=== PATIENT | male | born 1945 | race Caucasian/White ===

== ENCOUNTER 2016-02-13 16:27 | Inpatient (IN) | payer OTHER, MEDICARE ==
[~2016-02-13] VITALS: Ht 172.7 cm; Wt 97.1 kg
[~2016-02-13 16:27] MED LIST: ALPH-E-MIXED-4400 IU PO; AMLODIPINE; ASPIRIN81 M4 PO; ATORVASTATIN; ATORVASTATIN CA80 M1 PO; AUGMENTIN 875-1 EACH PO; CADUET 10 MG-101 TAB PO; CALCIUM + D 6001 TAB PO; CENTRUM SILVER1 TAB PO; DICLOFENAC POTA50 M1 PO; DOCUSATE SODIU100 M3 PO; FLOVENT HFA12 G1 INH; HYDRALAZINE HCL25 MG PO; HYDRODIURIL 2525 MG PO; IBUPROFEN600 MG PO; KEFLEX500 M1 PO; KLOR-CON 10MEQ10 MEQ PO; LOSARTAN POTASS25 M1 PO; METOPROLOL TART25 M1 PO; MIRALAX119 GM PO; NASONEX17 GM NASB; NITROFURANTOIN50 M1 PO; PERCOCET 325 MG1 TAB PO; PERCOCET 5-3251 EACH PO; PROBIOTIC GOLD1 EACH PO; PROSCAR5 MG PO; PROVENTIL0.09 MG/A1 INH; TAMSULOSIN HYD0.4 MG PO; VITAMIN C500 M7 PO; ZOFRAN4 M2 PO; [UNRECOGNIZED DRUG - OTHER]
--- NOTE | 2016-02-13 16:40 | ED DYSPNEA/ASTHMA COMPLAINT ---
History of Present Illness General Chief Complaint: Dyspnea (COPD, CHF, Other) Stated Complaint: SENT IN BY MD MOE FOR DIFF BREATHING Source: patient, family, old records, PCP Exam Limitations: no limitations Vital Signs & Intake/Output Vital Signs & Intake/Output Vital Signs Date Time Temp Pulse Resp B/P Pulse O2 O2 Flow FiO2 Ox Delivery Rate 02/12 2138 97.9 103 20 154/74 90 02/12 2133 95 Nasal 4.0L Cannula 02/12 1918 98.7 111 20 152/86 95 Nasal 4.0L Cannula 02/12 1849 97.0 112 16 178/94 95 Nasal 7.0L Cannula 02/12 1740 94 Nasal 7.0L Cannula 02/12 1738 96.9 110 21 119/74 94 Nasal 7.0L Cannula 02/12 1700 98 Nasal 4.0L Cannula ED Intake and Output 02/13 0000 02/12 1200 Intake Total 100 Output Total Balance 100 Intake, IV 100 Patient 215 lb Weight Allergies Coded Allergies: NO KNOWN ALLERGIES (01/02/16) Reconcile Medications Ascorbic Acid (Vitamin C) 500 MG CAPSULE.ER 1 CAP PO BID SUPPLEMENT (Reported ) Aspirin (Ecotrin*) 81 MG TABLET.DR 1 TAB PO DAILY HEART/BLOOD (Reported) Atorvastatin Calcium 80 MG TABLET 1 TAB PO QPM CHOLESTEROL (Reported) Fluticasone Propionate (Flovent Hfa) 220 MCG AER.W.ADAP RESPIRATORY (Reported) Lactobacillus Acidophilus (Probiotic) 10 BILLION CELL CAPSULE 1 CAP PO DAILY PROBIOTIC (Reported) Losartan Potassium 25 MG TABLET 1 TAB PO DAILY HEART (Reported) Metoprolol Tartrate 25 MG TABLET 1 TAB PO BID HEART (Reported) Mometasone Furoate (Nasonex) 50 MCG SPRAY.PUMP 1 SPRAY NASB PRN ALLERGIES ( Reported) Multivitamin and Ctspezuv651 (Centrum Silver) 1 TAB TAB 1 TAB PO DAILY SUPPLEMENT (Reported) Nitroglycerin 0.4 MG TAB.SUBL 1 TAB SL AD PRN CHEST PAIN (Reported) 1st sign of attack; may repeat every 5 minutes until relief; if pain persists after 3 tablets in 15 minutes, prompt medical att Prednisone 20 MG TABLET STEROID TAPER (Reported) Pregabalin (Lyrica) 50 MG CAPSULE 1 CAP PO BID UNKNOWN (Reported) Tamsulosin HCl 0.4 MG CAP.ER.24H 1 CAP PO DAILY (Reported) Triage Nurses Notes Reviewed? yes Onset: Gradual Duration: day(s): (3-4) Timing: recent history Severity: severe Modifying Factors: Worsens With: other (EXERTION). Associated Symptoms: DYSPNEA, CHEST PAIN HPI: This is a 70-year-old male with history of emphysema, history of coronary disease status post DE and stents 1 in [address] Moe's office for chief complaint of respiratory distress and hypoxia. He was seen here on January 20 for chest pain and shortness of breath and had a CAT scan to rule out PE. He was diagnosed with acute chest pain syndrome and asthma exacerbation. He saw Dr. Nascimento his machine fancy stitcher 2 weeks ago in the office and states that his evaluation but signs were within normal limits. He has had episodes of chest pain. He states that as soon as the prednisone titrated that his symptoms came back. Denies any fever or chills. Complains of a cough with productive clear sticky sputum. Today was his first day doctor seeing Dr. Moe and Dr. Clive sam down to the ER for evaluation. Past History Travel History Traveled to [place] past 21 day No Medical History Any Pertinent Medical History? see below for history Neurological: NONE EENT: hearing loss Cardiovascular: hyperlipidemia, myocardial infarction, hypertension Respiratory: asthma Gastrointestinal: NONE Hepatic: NONE Renal: dysfunctional bladder, self catheterizes. URINARY RETENTION REQUIRING SELF-CATHETERIZATION Musculoskeletal: chronic back pain, osteoarthritis, LLE FX, Psychiatric: NONE Endocrine: NONE Blood Disorders: septic shock x 2 Cancer(s): NONE MEDICAL AIDE/Reproductive: NONE Other Medical Hx: UTI, sepsis History of MRSA: No History of VRE: No History of CDIFF: No Surgical History Surgical History: CARDIAC STENT BACK SURGER 2006 Psychosocial History Who do you live with Family Services at Home None What is your primary language [place] Family History Hx Contributory? No Review of Systems Review of Systems Constitutional: Denies: chills, fever. EENTM: Reports: no symptoms. Respiratory: Reports: short of breath. Cardiovascular: Reports: chest pain. Denies: palpitations, peripheral edema. GI: Denies: abdominal pain. Genitourinary: Reports: no symptoms. Musculoskeletal: Reports: no symptoms. Skin: Reports: no symptoms. Neurological/Psychological: Reports: anxiety. Hematologic/Endocrine: Denies: bruising, bleeding, polyuria, polydipsia. Immunologic/Allergic: Reports: no symptoms. All Other Systems: Reviewed and Negative Physical Exam Physical Exam General Appearance: well developed/nourished, alert, awake, anxious, moderate distress Head: atraumatic, normal appearance Eyes: Bilateral: normal appearance, PERRL, EOMI. Ears, Nose, Throat: normal pharynx, normal ENT inspection, hearing grossly normal Neck: normal inspection, supple, full range of motion Respiratory: decreased breath sounds, accessory muscle use Cardiovascular: tachycardia Peripheral Pulses: 2+ radial (R), 2+ radial (L) (RADIAL THRILL) Gastrointestinal: soft, non-tender, OBESE Extremities: pedal edema (TRACE BILATERAL) Neurologic/Psych: no motor/sensory deficits, awake, alert, oriented x 3, normal gait, normal mood/affect Skin: cyanosis Core Measures ACS in differential dx? No Severe Sepsis Present: No Septic Shock Present: No Progress Differential Diagnosis: asthma, CHF, COPD, musculoskeletal pain, pericarditis, pulmonary embolism, pneumonia, pneumothorax, unstable angina Plan of Care: Orders Procedure Date/time Status Heart Healthy Diet 02/13 B Active CBC WITHOUT DIFFERENTIAL 02/13 0600 Active BASIC ELECTROLYTES PLUS BUN&CR 02/13 0600 Active TROPONIN LEVEL 02/13 0530 Active EKG 02/13 0530 Active Heart Healthy Diet 02/12 D Complete TROPONIN LEVEL 02/12 2330 Active EKG 02/12 2330 Active LOWER RESPIRATORY CULTURE 02/12 2200 Active Pathway - chart 02/12 2134 Active House Staff 02/12 2134 Active Patient Data 02/12 2134 Active Vital Signs 02/12 2118 Active Teach/Educate 02/12 2118 Active Nutritional Intake, Monitor 02/12 2118 Active Isolation 02/12 2118 Active Intake & Output 02/12 2118 Active Patient Care Conference 02/12 2118 Active Activity/Ambulation 02/12 2118 Active Patient Data 02/12 1907 Active Admit to inpatient 02/12 1845 Active Vital Signs 02/12 1845 Active Code Status 02/12 1845 Active Intake & Output 02/12 1738 Active Add-on Test (ER Only) 02/12 1737 Active D-DIMER 02/12 1724 Complete RT ED ORDERS 02/12 1647 Active ARTERIAL BLOOD GAS (GEN) 02/12 1644 Complete Telemetry/Emergency Dept Tech 02/12 1644 Active TROPONIN LEVEL 02/12 1644 Complete PARTIAL THROMBOPLASTIN TIME 02/12 1644 Complete PROTHROMBIN TIME 02/12 1644 Complete COMPREHENSIVE METABOLIC PANEL 02/12 1644 Complete CBC WITHOUT DIFFERENTIAL 02/12 1644 Complete B-TYPE NATRIURETIC PEP (BNP) 02/12 1644 Complete EKG 02/12 1629 Active TRC EVALUATION (GEN) 02/12 UNK Active OXYGEN SETUP (GEN) 02/12 UNK Complete VTE Mechanical Prophylaxis 02/12 UNK Active Telemetry/Emergency Dept Tech 02/12 UNK Active Nursing Misc 02/12 UNK Active CTA CHEST 02/12 UNK Active ECHOCARDIOGRAM 02/12 UNK Active Current Medications Sig/Darvin Start time Last Medication Dose Stop Time Status Admin Atorvastatin Calcium 80 MG QPM 02/13 2200 AC (Lipitor) Aspirin Buffered 81 MG DAILY 02/13 1000 AC (Ecotrin) Enoxaparin Sodium 40 MG DAILY 02/13 1000 AC (Lovenox) Lactobacillus 1 CAP DAILY 02/13 1000 AC Acidophilus (Probiotic) Losartan Potassium 25 MG DAILY 02/13 1000 AC (Cozaar) Metoprolol Tartrate 25 MG BID 02/13 1000 AC (Lopressor) Tamsulosin HCl 0.4 MG DAILY 02/13 1000 AC (Flomax) Melatonin 5 MG AT BEDTIME 02/12 2359 AC (Melatonin) Azithromycin 500 MG DAILY 02/125 AC (Zithromax) Sodium Chloride 250 ML (Normal Saline 0.9%) Fluticasone 2 PUF BID 02/12 2245 AC Propionate (Flovent) Methylprednisolone 40 MG Q8 02/12 2245 AC (Solumedrol) Nitroglycerin 0.4 MG Q 5 MINUTES X 3 DO.. 02/12 2215 AC (Nitrostat) Pregabalin 50 MG BID 02/12 2207 AC (Lyrica) Acetaminophen 650 MG Q6P PRN 02/12 2145 AC (Tylenol) Oxycodone HCl 5 MG Q6 PRN 02/12 2145 AC (Roxicodone) Laboratory Tests 02/12/ 1724: Anion Gap 11, Estimated GFR > 60, BUN/Creatinine Ratio 22.7, Glucose 153 H, Calcium 9.3, Total Bilirubin 0.7, AST 51, ALT 77 H, Alkaline Phosphatase 195 H , Troponin I 0.09, Pwv-I-Yrkhswuxfjs Pept 2420 H, Total Protein 6.9, Albumin 3.4 L, Globulin 3.5, Albumin/Globulin Ratio 1.0 L, PT 14.9 H, INR 1.42 H, APTT 34, D-Dimer 713 H, CBC w Diff NO MAN DIFF REQ, RBC 3.99 L, MCV 80.5, MCH 26.6 L, RDW 17.5 H, MPV 7.6, Gran % 97.5 H, Lymphocytes % 2.1 L, Monocytes % 0.3 L, Eosinophils % 0.1, Basophils % 0 L, Absolute Granulocytes 13.9 H, Absolute Lymphocytes 0.3 L, Absolute Monocytes 0 L, Absolute Eosinophils 0, Absolute Basophils 0, PUBS MCHC 33.1 02/13/16 1650: pH 7.47 H, pCO2 32 L, pO2 71 L, HCO3 23, ABG O2 Sat (Measured) 93.0 L, Carboxyhemoglobin 0.3 L, O2 Concentration % 4L, O2 Delivery Method NC, Phlebotomy Draw Site RIGHT RADIAL Microbiology 02/12 2200 LOWER RESP: Respiratory Culture - ORD 02/12 2200 LOWER RESP: Gram Stain - ORD EKG, TELE MONITOR, NASAL O2 ORDERED. SOLUMEDROL, DUONEB ORDERED. PATIENT FEELING BETTER AFTER DUONEB. CXR RESULTS PENDING. (FABIOLA MILLIGAN,LAYA) Diagnostic Imaging: Viewed by Me: Radiology Read. Discussed w/RAD: Radiology Read. Radiology Impression: EXAM TYPE: RAD - XRY-PORTABLE CHEST XRAY EXAMINATION: XR PORTABLE CHEST CLINICAL INFORMATION: Dyspnea, hypoxia and chest pain. COMPARISON : Portable chest x-ray 01/21/2016. TECHNIQUE: Portable view of the chest was obtained. FINDINGS: The lungs are hypoinflated with minimal dependent bibasilar atelectasis. No focal airspace consolidation. No pleural effusions or pneumothoraces are identified. Cardiomediastinal contours are within normal limits. Soft tissues are unremarkable. No acute osseous abnormality is identified. IMPRESSION: Pulmonary hypoinflation. Minimal dependent bibasilar atelectasis. Otherwise, no acute pulmonary process. Initial ED EKG: sinus tachycardia at 108 bpm Rhythm Strip: sinus tachycardia Departure Departure Time of Disposition: 1844 Disposition: STILL A PATIENT Condition: Stable Clinical Impression Primary Impression: COPD (chronic obstructive pulmonary disease) Secondary Impressions: Chest pain, Hypoxia Referrals: ANALISA MILLIGAN,MARCIANO Valdivia (PCP/Family) Referred to [facility] as new patient No Departure Forms: Customer Survey General Discharge Information Admission Note Spoke With: RICH MILLIGAN,EUGENIO Documentation of Exam: Documentation of any treatments & extenuating circumstances including Concerns Regarding Discharge (functional status, medication knowledge or non-compliance, living conditions, etc.) that warrant an admission rather than observation: [ TELE MONIOTOR, TRC/NEBS, IV STEROIDS, PULMONARY CONSULTATION DR MOE, CARDIOLOGY CONSULTATION, MONITOR I/O] Critical Care Note Critical Care Note Critical Care Time: non-applicable
[2016-02-13] MEDS ORDERED: PREDNISONE20 M1 PO (17:23)
[2016-02-13] MEDS ORDERED: ASPIRIN EC81 M1 PO (17:31)
[2016-02-13 17:33] LABS: ABSOLUTE BASOPHIL COUNT 0 /CUMM (0.0-0.2); ABSOLUTE EOSINOPHIL COUNT 0 /CUMM (0.0-0.7); ABSOLUTE GRANULOCYTE CT 13.9 /CUMM (1.4-6.5); ABSOLUTE LYMPH COUNT 0.3 /CUMM (1.2-3.4); ABSOLUTE MONOCYTE COUNT 0 /CUMM (0.10-0.60); BASOPHIL % 0 % (0.0-2.0); EOSINOPHIL % 0.1 % (0-5); HEMATOCRIT 32.1 % (42-52); MEAN CORPUSCULAR HGB 26.6 PG (27.0-31.0); MEAN CORPUSCULAR HGB CONC 33.1 G/DL (33.0-37.0); MEAN CORPUSCULAR VOLUME 80.5 FL (80.0-94.0); MEAN PLATELET VOLUME 7.6 FL (7.4-10.4); PLATELET COUNT 318 /CUMM (130-400); RBC DISTRIBUTION WIDTH 17.5 % (11.5-14.5); RED BLOOD CELL CT 3.99 /CUMM (4.70-6.10); WHITE BLOOD CELL COUNT 14.2 /CUMM (4.8-10.8)
[2016-02-13] MEDS ORDERED: PROBIOTIC1 EACH PO (17:34)
[2016-02-13] MEDS ORDERED: LYRICA50 M1 PO (17:35)
[2016-02-13] MEDS ORDERED: NITROGLYCERIN0.4 M1 SL (17:35)
--- NOTE | 2016-02-13 17:36 | RADIOLOGY REPORT ---
EXAMINATION: XR PORTABLE CHEST CLINICAL INFORMATION: Dyspnea, hypoxia and chest pain. COMPARISON: Portable chest x-ray 01/21/2016. TECHNIQUE: Portable view of the chest was obtained. FINDINGS: The lungs are hypoinflated with minimal dependent bibasilar atelectasis. No focal airspace consolidation. No pleural effusions or pneumothoraces are identified. Cardiomediastinal contours are within normal limits. Soft tissues are unremarkable. No acute osseous abnormality is identified. IMPRESSION: Pulmonary hypoinflation. Minimal dependent bibasilar atelectasis. Otherwise, no acute pulmonary process.
--- NOTE | 2016-02-13 17:38 | NUR ---
PT TO ED FOR WORSENING SOB, STATES HE HAS BEEN HAVING WORSENING SOB OVER PAST MONTH, SAW LORI IN HIS OFFICE TODAY WHO REFFERRED PT TO ED. PTS LUNGS CLEAR THROUGHOUT, APPEARS ASHEN ON RA, COLOR IMPROVES ON NC 02 AT 7 L FOR AN 02SAT OF 94% PT DENIES ANY FEVER, INTERMITTENT PRODUCTIVE COUGH WITH "FROTHY STUFF", BILATERAL FEMUR PAIN WHICH HAS BEEN CHRONIC SINCE SOB.
[2016-02-13] MEDS ORDERED: TAMSULOSIN HCL0.4 M1 PO (17:39)
[2016-02-13] MEDS ORDERED: FLOVENT HFA12 GM INH (17:40)
--- NOTE | 2016-02-13 17:44 | NUR ---
IV ESTABLISHED, STEROIDS INFUSING, RT AT [facility] FOR ABG AND NEB TX
[2016-02-13 17:53] LABS: GRANULOCYTE % 97.5 % (42.2-75.2)
[2016-02-13 17:54] LABS: PT 14.9 SEC (9.4-12.5); PTT 34 SEC (25-37)
--- NOTE | 2016-02-13 18:44 | NUR ---
PT ASSISTED TO CHAIR, MEDICATED WITH PERCOCET PER REQUEST FOR CHRONIC BACK PAIN. PT STRAIGHT CATH'D SELF FOR APPROX 800 CC CLEAR YELLOW URINE WITH NO REPORTED DIFFICULTY.
--- NOTE | 2016-02-13 18:51 | NUR ---
PT REQUESTING TO STAY IN OWN CLOTHES
--- NOTE | 2016-02-13 19:43 | NUR ---
PT HAS BED #180-1
--- NOTE | 2016-02-13 19:48 | History & Physical ---
JANESSA SHAFFER MD 02/13/161947: General Information and HPI Source of Information: patient, old records Exam Limitations: no limitations History of Present Illness: Patient is a 70-year-old male Ex-smoker with significant past medical history of hypertension , hyperlipidemia , chronic back pain (operated 10 years ago, on Percocet), bilateral neuropathic pain on Lyrica, dysfunctional bladder (doing self catheterization), sepsis (twice), coronary artery disease status post stent (2014),renal stones status post multiple lithotripsy, right sided hydronephrosis status post stent removal , recurrent UTI COPD/emphysema , not on home oxygen presented with chief complaints of separately progressive shortness of breath since 3 or 4 days after he stopped the prednisone given for pleurisy. Patient claims that he was having chest pain since last couple of weeks and came to the emergency department, and he was admitted in the [facility]. He was evaluated for embolization/coronary artery disease. But later on the workup was negative. So he was diagnosed as a pleurisy. He was sent home with pain medication but later started him on prednisone 20 milligrams twice a day for 10 days. He responded well on it. His pain was down to 0. As he stopped the prednisone, he started having shortness of breath which got worse 3 days ago. Today it was intolerable so he called to Dr Castellanos office and he advised to visit Dr. Moe for further pulmonary evaluation. He went to Dr. Moe's office and he advised to come to the [facility] ED for admission and further evaluation. At the time of admission. He was saturating 94% on 7 liters nasal cannula. Later after breathing treatment, He came down to 4 liters is now saturating 95%. Chronic back pain-he is operated 10 years ago and was on Percocet. But recently a week ago,he stopped it. Patient was smoking cigars for 20 years and which he quit in 2014, after he had CO. According to the patient, he is working in [email or web address] since last 34 years. Allergies/Medications Allergies: Coded Allergies: NO KNOWN ALLERGIES (01/02/16) Home Med list Ascorbic Acid (Vitamin C) 500 MG CAPSULE.ER 1 CAP PO BID SUPPLEMENT (Reported ) Aspirin (Ecotrin*) 81 MG TABLET.DR 1 TAB PO DAILY HEART/BLOOD (Reported) Atorvastatin Calcium 80 MG TABLET 1 TAB PO QPM CHOLESTEROL (Reported) Fluticasone Propionate (Flovent Hfa) 220 MCG AER.W.ADAP RESPIRATORY (Reported) Lactobacillus Acidophilus (Probiotic) 10 BILLION CELL CAPSULE 1 CAP PO DAILY PROBIOTIC (Reported) Losartan Potassium 25 MG TABLET 1 TAB PO DAILY HEART (Reported) Metoprolol Tartrate 25 MG TABLET 1 TAB PO BID HEART (Reported) Mometasone Furoate (Nasonex) 50 MCG SPRAY.PUMP 1 SPRAY NASB PRN ALLERGIES ( Reported) Multivitamin and [id number] (Centrum Silver) 1 TAB TAB 1 TAB PO DAILY SUPPLEMENT (Reported) Nitroglycerin 0.4 MG TAB.SUBL 1 TAB SL AD PRN CHEST PAIN (Reported) 1st sign of attack; may repeat every 5 minutes until relief; if pain persists after 3 tablets in 15 minutes, prompt medical att Prednisone 20 MG TABLET STEROID TAPER (Reported) Pregabalin (Lyrica) 50 MG CAPSULE 1 CAP PO BID UNKNOWN (Reported) Tamsulosin HCl 0.4 MG CAP.ER.24H 1 CAP PO DAILY (Reported) Past History Travel History Traveled to [place] past 21 day No Medical History Neurological: NONE EENT: hearing loss Cardiovascular: hyperlipidemia, myocardial infarction, hypertension Respiratory: asthma Gastrointestinal: NONE Hepatic: NONE Renal: dysfunctional bladder, self catheterizes. 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 EENTM: Denies: no symptoms. Cardiovascular: Reports: chest pain. Denies: edema, orthopena, palpitations, peripheral edema. Respiratory: Reports: cough, short of breath. Denies: hemoptysis, orthopnea, sputum production, wheezing. GI: Reports: distention. Denies: abdominal pain, bloating, constipation, diarrhea, nausea. Genitourinary: Reports: dysuria. Denies: frequency, hematuria, nocturia. Neurological/Psychological: Reports: paresthesia. Denies: anxiety. Exam & Diagnostic Data Last 24 Hrs of Vital Signs/I&O Vital Signs Date Time Temp Pulse Resp B/P Pulse O2 O2 Flow FiO2 Ox Delivery Rate 02/12 2138 97.9 103 90 154/74 20 02/12 1918 98.7 111 20 152/86 95 Nasal 4.0L Cannula 02/12 1849 97.0 112 16 178/94 95 Nasal 7.0L Cannula 02/12 1740 94 Nasal 7.0L Cannula 02/12 1738 96.9 110 21 119/74 94 Nasal 7.0L Cannula 02/12 1700 98 Nasal 4.0L Cannula Physical Exam General Appearance Alert, Oriented X3, Cooperative, No Acute Distress Skin No Rashes, No Breakdown HEENT Atraumatic, PERRLA, EOMI Neck Supple, No JVD, No thryomegaly Cardiovascular Regular Rate, Normal S1, Normal S2 Lungs Clear to Auscultation, Normal Air Movement Abdomen Soft, No Tenderness, distended Neurological Normal Speech Extremities No Clubbing, No Cyanosis, No Edema, Normal Pulses Assessment/Plan Assessment: Assessment and plan - Vital signs at the time of admission-temperature 96.9, pulse 110, respiratory rate 21, blood pressure 119/74, SPO2 94% on 7 liters of ABG-pH 7.4, PCO2 32, PO2 71, bicarbonate 23, SPO2 93% Chest x-ray -Pulmonary hypoinflation. Minimal dependent bibasilar atelectasis. Otherwise, no acute pulmonary process. Problem list - COPD acute exacerbation under evaluation, not on home oxygen Coronary artery disease, status post stenting in 2014 Hypertension Hyperlipidemia chronic back pain (operated 10 years ago, on Percocet), bilateral neuropathic pain on Lyrica, dysfunctional bladder (doing self catheterization), Anemia Obesity Plan- COPD acute exacerbation under evaluation, not on home oxygen * We will take the pulmonology consult and followed their recommendation * TRC/nebulization * We'll continue oxygen with goal of SPO2 of more than 92% * We will start patient on injection Solu-Medrol 40 mgs IV 8hrly * We will give Azithromycin for antiinflammatory effects * We will do CTA to r/o PE Coronary artery disease, status post stenting in 2014 * We will check serial EKG/Troponin to rule out ACS * We will place cardiology consult and follow their recms * We will f/u echo * We will continue Aspirin. Hypertension * We will continue home medication Losartan, Metoprolol Hyperlipidemia * We will continue home medication tab atorvastatin 80mg HS chronic back pain (operated 10 years ago, on Percocet) * We will continue pain medication as needed bilateral neuropathic pain on Lyrica, * We will continue home medication Lyrica 50mg BID dysfunctional bladder (doing self catheterization), * We will continue home medication Tamsulosin * Advised for straight cath protocol * As patient was c/o Dysuria we will check UA and urine culture Anemia * Hemoglobin is 10.6 * It seems it is a NcNch, we will follow regulary Obesity * We will advise for weight loss diet and exercise after he get recovered. Diet - Heart Healthy diet DVT prophylaxis -Heparin /ALPS Code Status - FC As Ranked By This Provider Problem List: 1. COPD (chronic obstructive pulmonary disease) 2. Emphysema of lung 3. Chronic back pain Core Measures/Miscellaneous Acute Coronary Syndrome ACS Diagnosis: No Cerebrovascular Accident CVA/TIA Diagnosis: No Congestive Heart Failure CHF Diagnosis: No Venous Thromboembolism VTE Risk Factors: Age > 40, Obesity VTE Prophylaxis Ordered Inpt: Mechanical (ALPS/TEDS) No Mech VTE prophylaxis d/t: No contraindications No VTE Pharm Prophylaxis d/t: No contraindications VTE Diagnosis: No VTE Type: NONE VTE Confirmed by (Test): NONE Severe Sepsis Severe Sepsis Present: No Septic Shock Septic Shock Present: No Miscellaneous Documentation Attending Case Discussed With: MELIZA VILLANUEVA MDKendall Primary Care Physician: MARCIANO HAUSER MD Patient sees these Specialists oj Level of Patient Care: Telemetry MAHIN GRAMAJO 02/13/166: Resident Review Statement Resident Statement: examined this patient, discussed with international specialist, agreed with international specialist Other Findings: Patient is a 70-year-old gentleman with past medical history significant for COPD(smoked cigars for almost 20 years)/questionable interstitial lung disease, hypertension, hyperlipidemia, CO status post cardiac stent placed in 2014, chronic back pain, ankle fracture, septic shock, dysfunctional (neurogenic) bladder status post self-catheterization, urinary retention, recurrent UTI, renal stones status post multiple lithotripsywas sent in to the ED from Dr. Moe office for the evaluation of shortness of breath. On inquiry, the patient he was recently admitted in [facility] due to acute pyelonephritis and sepsis was discharged home on 12/22/2015. Patient was in his usual state of health about 3-4 weeks ago when he started having chest discomfort with trouble breathing. He came to the ER on January 20 for the evaluation, CT chest done in the ED ruleD out any underlying PE. Afterward she was seen by his primary care physician Dr. Hauser and was given a prescription on tapered prednisone for total of 10 days for possible COPD exacerbation. Patient's symptoms improved but this weekend he started having shortness of breath associated with chest discomfort again. He called his primary care physician and on his recommendation he was seen at Dr. Moe's office today. In the office patient was found to be in respiratory distress, desaturated and was sent to the ER for further evaluation. Patient has also been complaining of productive cough with clear thick phlegm. Denies any recent fever or infections denies any recent travels/sick contacts. As mentioned above patient smoked cigars for almost 20 years, has been diagnosed with emphysema (COPD). 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 Has never done by me function tests before. Vitals on admission temperature 96.9, pulse 110, respiratory rate 21, blood pressure 119/74, first on 7 L now on 4 L of oxygen,saturating more than 92%. On examination General Appearance: Alert, No Acute Distress Skin: Grossly normal HEENT: PEERLA Neck: Supple, No JVD Cardiovascular: Regular Rate, Normal S1, Normal S2, No Murmurs Lungs: Decreased expirations bilaterally without any wheeze. Abdomen: Normal Bowel Sounds, Soft, No Tenderness Neurological: Normal Speech, Strength at 5/5 X4 Ext, Cranial Nerves 3-12 NL, Reflexes 2+ Extremities: No Clubbing, No Cyanosis, No Edema Vascular: Normal Pulses. Pertinent labs: Leukocytosis 14.2 without any bands, H&H low at 10.6/32.5 with MCV of 80.5. ABG done in the ED showed a pH of 7.47 with PCO2 of 30 2D dimer elevated at 713 elevated proBNP 2420. EKG: Sinus tachycardia heart rate in 100s with multiple PVCs left fascicular block. Chest x-ray Pulmonary hypoinflation. Minimal dependent bibasilar atelectasis. Otherwise, no acute pulmonary process. Assessment/plan: 1. Acute hypoxic respiratory failure(elevated d-dimer with EKG showed sinus tachycardia, rule out pulmonary embolism)/ACS/COPD exacerbation: * Patient will be admitted to telemetry floor: * CTA chest to rule out pulmonary embolism but revealed Small focal subpleural infiltrate at both lung apices new since prior CT study. Mosaic attenuation of lung parenchyma most affecting the upper lobes consistent with small airways disease. * Hold and device for now will send sputum and blood cultures if patient spikes fever consider antibiotics. * We'll do serial troponin EKG to rule out any underlying ACS. * Obtain echocardiogram. * Obtain cardiology consult the morning. * Continue and keep saturations above 92% * Watch for any hemodynamic instability. * We will start the patient on IV Solu-Medrol 40 mg every 8 continue with azithromycin for its anti-inflammatory properties, continue with TR nebs. * Obtained pulmonology consult with Dr. Moe in the morning. 2. History of coronary artery disease (CO 2015 status post cardiac cath and stent placement),hypertension and hyperlipidemia: * Continue home medications including aspirin, atorvastatin ,losartan and metoprolol. 3. History of neurogenic bladder on straight cath protocol * Continue straight cath protocol in the hospital * Continue with tamsulosin. 4. History of chronic back pain with neuropathy * Continue home dose of Lyrica 5.Mild to moderate pain controlled with Tylenol and oxycodone. 6. DVT prophylaxis subcutaneous Lovenox 7. Patient is full code. RICH MILLIGAN, [facility] 02/13/16 0929: Attending MD Review Statement Attending Statement Attending MD Statement: examined this patient, discuss w/resident/PA/DATASTAGE ARCHITECT, agreed w/resident/PA/DATASTAGE ARCHITECT Attending Assessment/Plan: 70 yo M with h/o COPD, HTN, BPH, nephrolithiasis, chronic pain, CAD s/p stent ( 2015 @ [place]), neurogenic bladder on self cath, recurrent UTI, admitted to [facility] (Nov 2015) for pyelonephritis with obstructive uropathy s/p right ureteral stent that was removed (Dec 2015), pw worsening dyspnea on exertion. Quit smoking cigars 1 year ago. Patient reports, around 1st week of January, he developed pleuritic chest discomfort and dyspnea, seen in ER on Jan 20, CTA no PE but moderate emphysema and enlarged thyroid. He was discharged to follow up with Dr. Hannon. He then followed up with his PCP (Dr. Hauser) who prescribed 10-day prednisone taper which he finished on Feb 08. His symptoms were improving while on steroids, however for past 4 days he has been dyspneic on minimal exertion, associated with wheezing, chest disomfort, nausea, lightheadedness and cough/ congestion unable to bring phlegm up, mostly clear. He saw Dr. Moe today, who found patient to be hypoxic in 's hence sent him to ER. Patient reports he got flu and pneumonia vaccines. No sick contacts or recent travel. 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 No prior PFTs. He also mentions, he was diagnosed with GI ulcers last year when he had EGD at [place], but he is not on a PPI. Vitals: afebrile, tachycardic, sats 94% on 4L. Exam: Able to speak in full sentences, not using accessory muscles of respiration, Chest b/l rhonchi (L>R) with reduced air entry, very minimal wheeze. Heart S1S2 regular, systolic murmur +. Labs: WBC 14.2, H/H 10.6/32.1, D-dimer 713, BUN 25, ALT 77, Alk phos 195, trop neg, proBNP 2420, AB.47/32/71/23 (respiratory alkalosis). CXR: pulmonary hypoinflation, bibasilar atelectasis. EKG: Sinus tachycardia, PVCs. 1. Acute hypoxic respiratory failure in the setting of possible COPD exacerbation with ?underlying PE or superimposed pneumonia. Need to assess for ? ILD. TRC nebs, incentive spirometry, CTA chest done shows small focal subpleural infiltrate b/l lung apices and small airways disease (new since prior CT on Jan 20). Sputum cultures, ct. IV solumedrol, IV azithromycin, Pulm consult (Dr. Moe). Continuous pulse ox monitoring. Elevated proBNP but patient does not seem to be in congestive heart failure. I would hold off metoprolol for now given COPD. 2. Chest pain, need to rule out ACS. Echo, Cardio consult (Dr. Lewis group). Will give a trial of PPI as patient c/o chest discomfort after eating spicy food , and given his h/o ?GI ulcer on EGD. 3. Enlarged right lobe of thyroid on CT. Will obtain TSH and free T4. Consider thyroid ultrasound to further evaluate the gland. If abnormal, consider Endo consult. 4. Ct. aspirin, statin, losartan, lyrica, tamsulosin. Hold metoprolol. DVT ppx Lovenox. Full code.
--- NOTE | 2016-02-13 20:51 | NUR ---
REPORT CALLED TO DANITA ON TELE, HOUSE STAFF CURRENTLY AT BEDSIDE EVALUATING PATIENT
[2016-02-13 21:38] VITALS: BP 154/74
--- NOTE | 2016-02-13 22:53 | Admission Certification ---
Admission Certification Certification Statement - As attending physician, I certify that at the time of - admission, based on clinical presentation, severity of - symptoms, need for further diagnostic testing and - therapeutic interventions, and risk of adverse outcomes - without in-hospital treatment, in my clinical assessment, - this patient requires an acute hospital stay for a minimum - of two nights or longer. I have also considered psychsocial - factors such as support system, advanced age, financial - issues, cognitive issues, and failed out-patient treatments, - past re-admission history, safety of patient, and lack of - compliance as applicable. Specific rationale supporting this admission is: Acute hypoxic respiratory failure 2/2 COPD exacerbation vs. pneumonia.
--- NOTE | 2016-02-14 00:26 | CT SCAN REPORT ---
EXAMINATION: CT ANGIOGRAM CHEST, PE STUDY CLINICAL INFORMATION: Hypoxia. COMPARISON: CT PE exam 01/21/2016. Portable chest x-ray 02/13/2016 TECHNIQUE: A noncontrast localizer was performed, followed by the administration of 75 mL Optiray [address] of the chest was then performed. Coronal and sagittal reformatted and 3-D technique MIP images of the chest were completed at the CT scanner and reviewed on the PACS workstation. No adverse effects were reported. DLP: 479.92 mGy-cm. FINDINGS: VASCULAR: The main pulmonary artery, secondary and tertiary branches of the pulmonary artery are normally opacified with no evidence of pulmonary embolism. Scattered vascular wall calcifications of aorta. Ascending aorta luminal diameter measures 3.3 cm. Arch of the aorta measures 3.5 cm, sagittally aneurysmal unchanged since prior study. Right main pulmonary artery measures 2.9 cm. Left main pulmonary artery measures 2.3 cm. MEDIASTINUM: No mediastinal mass. No significant lymphadenopathy. There is no pericardial effusion. Enlarged right lobe of thyroid with small punctate calcifications. LUNGS: There is mosaic attenuation of lung parenchyma consistent with small airways disease that is new since the prior CT of 01/21/2016. There are small focal areas of consolidated infiltrate in the subpleural lung at both lung apices, right greater than left, new since prior CT study. There is underlying emphysematous subpleural blebs at both lung apices. FLUID: There is no pericardial effusion. There is no pleural effusion. AXILLA: No significant lymphadenopathy. UPPER ABDOMEN: There are multiple hepatic cysts at the upper liver. SKELETAL: Mild degenerative spondylosis of the dorsal spine. IMPRESSION: 1. No evidence of pulmonary embolism. 2. Small focal subpleural infiltrate at both lung apices new since prior CT study. Mosaic attenuation of lung parenchyma most affecting the upper lobes consistent with small airways disease.
[2016-02-14 06:28] LABS: ABSOLUTE BASOPHIL COUNT 0 /CUMM (0.0-0.2); ABSOLUTE EOSINOPHIL COUNT 0 /CUMM (0.0-0.7); ABSOLUTE GRANULOCYTE CT 15.6 /CUMM (1.4-6.5); ABSOLUTE LYMPH COUNT 0.4 /CUMM (1.2-3.4); ABSOLUTE MONOCYTE COUNT 0.2 /CUMM (0.10-0.60); BASOPHIL % 0 % (0.0-2.0); EOSINOPHIL % 0 % (0-5); GRANULOCYTE % 96.3 % (42.2-75.2); HEMATOCRIT 29.2 % (42-52); MEAN CORPUSCULAR HGB CONC 33.9 G/DL (33.0-37.0); MEAN CORPUSCULAR VOLUME 79.7 FL (80.0-94.0); PLATELET COUNT 300 /CUMM (130-400); RBC DISTRIBUTION WIDTH 17.3 % (11.5-14.5); RED BLOOD CELL CT 3.66 /CUMM (4.70-6.10); WHITE BLOOD CELL COUNT 16.2 /CUMM (4.8-10.8)
--- NOTE | 2016-02-14 07:38 | PN- Housestaff ---
Subjective Follow-up For: Acute on chronic COPD exacerbation with hypoxemic respiratory failure Possible pneumonia Pleuritic chest pain Complaints: pain scale (0-10) Tele-Events Since Last Visit: Normal sinus rhythm Sinus tachycardia Rate 88-113 PVCs No acute events noticed on telemetry Subjective: Patient was seen and examined this morning. He is alert, awake and oriented to time place and person. No other acute events reported overnight. He denied any chest pain, palpitations, headache, dizziness or lightheadedness. He did report shortness of breath on exertion, requiring high amount of oxygen. He does complain cough associated with sputum production which is chronic. He denied any fever or chills, abdominal pain, change in bladder or bowel habits. Vitals were stable. He is afebrile, pulse 96, respiratory rate 18, blood pressure 144/78, saturating at 94% on 4 L nasal cannula Review of Systems Constitutional: Denies: see HPI. Objective Last 24 Hrs of Vital Signs/I&O Vital Signs Date Time Temp Pulse Resp B/P Pulse O2 O2 Flow FiO2 Ox Delivery Rate 02/13 1012 Nasal 4.0L Cannula 02/13 0922 96 144/78 02/13 0922 96 144/78 02/13 0801 98.0 96 18 144/78 94 Nasal 4.0L Cannula 02/13 0800 Nasal 4.0L Cannula 02/13 0207 94 Nasal 4.0L Cannula 02/12 2138 97.9 103 20 154/74 90 02/12 2133 95 Nasal 4.0L Cannula 02/12 1918 98.7 111 20 152/86 95 Nasal 4.0L Cannula 02/12 1849 97.0 112 16 178/94 95 Nasal 7.0L Cannula 02/12 1740 94 Nasal 7.0L Cannula 02/12 1738 96.9 110 21 119/74 94 Nasal 7.0L Cannula 02/12 1700 98 Nasal 4.0L Cannula Intake & Output 02/13 1600 02/13 0800 02/13 0000 Intake Total 1236 400 100 Output Total 800 525 Balance 436 -125 100 Intake, IV 291 100 Intake, Oral 945 400 Number 1 Bowel Movements Output, Urine 800 525 Patient 97.522 kg Weight Physical Exam General Appearance: Alert, Oriented X3, Cooperative, No Acute Distress Skin: No Rashes, No Breakdown HEENT: Atraumatic, PERRLA, Mucous Membr. moist/pink Neck: Supple, No JVD Lymphatic: Cervical nl Cardiovascular: Normal S1, Normal S2 Lungs: Clear to Auscultation, decreased bs at bases Abdomen: Normal Bowel Sounds, Soft, No Tenderness Extremities: No Clubbing, No Cyanosis, No Edema Vascular: Normal Pulses Current Medications: Current Medications Sig/Darvin Start time Last Medication Dose Route Stop Time Status Admin Acetaminophen 650 MG Q6P PRN 02/12 2145 AC 02/13 PO 1436 Al Hydroxide/Mg 30 ML Q4-6 PRN PRN 02/13 0415 AC Hydroxide PO Albuterol Sulfate 3 ML Q4P PRN 02/13 1030 AC INH Albuterol Sulfate 3 ML ONCE ONE 02/13 0145 DC 02/13 INH 02/13 0146 0154 Albuterol Sulfate 3 ML ONCE ONE 02/12 1700 DC 02/12 INH 02/12 1701 1700 Aspirin Buffered 81 MG DAILY 02/13 1000 AC 02/13 PO 0922 Atorvastatin Calcium 80 MG QPM 02/13 2200 AC PO Azithromycin 500 MG DAILY 02/12 2245 AC 02/13 Sodium Chloride 250 ML IV 0927 Budesonide/ 2 PUF BID 02/13 1022 AC 02/13 Formoterol Fumarate INH 1158 Ceftriaxone Sodium 1,000 MG DAILY 02/13 1014 AC 02/13 IV 1158 Enoxaparin Sodium 40 MG DAILY 02/13 1000 AC 02/13 SC 0926 Fluticasone 2 PUF BID 02/12 2245 DC 02/13 Propionate INH 0923 Ipratropium [place] 2.5 ML ONCE ONE 02/12 1700 DC 02/12 INH 02/12 1701 1700 Lactobacillus 1 CAP DAILY 02/13 1000 AC 02/13 Acidophilus PO 0922 Losartan Potassium 25 MG DAILY 02/13 1000 AC 02/13 PO 0922 Melatonin 5 MG AT BEDTIME 02/13 2200 DC PO Melatonin 5 MG AT BEDTIME 02/12 2359 AC 02/13 PO 0011 Methylprednisolone 40 MG Q12 02/14 1000 AC IV Methylprednisolone 40 MG Q8 02/12 2245 AC 02/13 IV 02/13 2300 1436 Methylprednisolone 0 .STK-MED ONE 02/12 1710 DC .ROUTE Methylprednisolone 125 MG ONCE ONE 02/12 1700 DC 02/12 IV 02/12 1701 1727 Metoprolol Tartrate 25 MG BID 02/13 1000 CAN PO Nitroglycerin 0.4 MG Q 5 MINUTES X 3 DO.. 02/12 2215 AC 02/13 SL 0026 Omeprazole 40 MG DAILY AC 02/13 0700 AC 02/13 PO 0636 Oxycodone HCl 5 MG Q6 PRN 02/12 2145 AC 02/13 PO 1436 Oxycodone/ 1 TAB ONCE ONE 02/12 1830 DC 02/12 Acetaminophen PO 02/12 1831 182 Oxycodone/ 0 .STK-MED ONE 02/12 182 DC Acetaminophen PO Polyethylene Glycol 17 GM DAILY PRN 02/13 0815 AC 02/13 PO 0923 Pregabalin 50 MG BID 02/12 2207 AC 02/13 PO 0923 Tamsulosin HCl 0.4 MG DAILY 02/13 1000 AC 02/13 PO 0922 Tiotropium [place] 1 PUF DAILY 02/13 1022 AC 02/13 INH 1158 Last 24 Hrs of Lab/Pantera Results Last 24 Hrs of Labs/Mics: Laboratory Tests 02/14/16 0535: Anion Gap 11, Estimated GFR > 60, BUN/Creatinine Ratio 23.6, Troponin I 0.08, CBC w Diff NO MAN DIFF REQ, RBC 3.66 L, MCV 79.7 L, MCH 27.0, RDW 17.3 H, MPV 8.0, Gran % 96.3 H, Lymphocytes % 2.2 L, Monocytes % 1.5 L, Eosinophils % 0, Basophils % 0 L, Absolute Granulocytes 15.6 H, Absolute Lymphocytes 0.4 L, Absolute Monocytes 0.2, Absolute Eosinophils 0, Absolute Basophils 0, PUBS MCHC 33.9 02/14/16 0530: Troponin I Cancelled 02/14/16 0000: Troponin I 0.09, Vitamin B12 343, TSH 0.142 L, Free T4 1.21, Thyroxine (T4) 7.3 02/13/16 1724: Anion Gap 11, Estimated GFR > 60, BUN/Creatinine Ratio 22.7, Glucose 153 H, Calcium 9.3, Total Bilirubin 0.7, AST 51, ALT 77 H, Alkaline Phosphatase 195 H , Troponin I 0.09, All-X-Bicesofdxda Pept 2420 H, Total Protein 6.9, Albumin 3.4 L, Globulin 3.5, Albumin/Globulin Ratio 1.0 L, PT 14.9 H, INR 1.42 H, APTT 34, D-Dimer 713 H, CBC w Diff NO MAN DIFF REQ, RBC 3.99 L, MCV 80.5, MCH 26.6 L, RDW 17.5 H, MPV 7.6, Gran % 97.5 H, Lymphocytes % 2.1 L, Monocytes % 0.3 L, Eosinophils % 0.1, Basophils % 0 L, Absolute Granulocytes 13.9 H, Absolute Lymphocytes 0.3 L, Absolute Monocytes 0 L, Absolute Eosinophils 0, Absolute Basophils 0, PUBS MCHC 33.1 02/13/16 1650: pH 7.47 H, pCO2 32 L, pO2 71 L, HCO3 23, ABG O2 Sat (Measured) 93.0 L, Carboxyhemoglobin 0.3 L, O2 Concentration % 4L, O2 Delivery Method NC, Phlebotomy Draw Site RIGHT RADIAL Microbiology 02/13 1430 URINE ROUT: Legionella Antigen - COMP 02/13 1430 URINE ROUT: Streptococcus pneumoniae Antigen (M - COMP 02/13 1245 LOWER RESP: Respiratory Culture - RES 02/13 1245 LOWER RESP: Gram Stain - RES 02/13 0550 BLOOD: Blood Culture - RECD 02/13 0535 BLOOD: Blood Culture - RECD 02/12 2200 LOWER RESP: Respiratory Culture - CAN Cancelled: NO SAMPLE COLLECTED 02/12 2200 LOWER RESP: Gram Stain - CAN Cancelled: NO SAMPLE COLLECTED Assessment/Plan Assessment: Patient is a 70-year-old gentleman with past medical history significant for COPD(smoked cigars for almost 20 years)/questionable interstitial lung disease, hypertension, hyperlipidemia, NH status post cardiac stent placed in 2014, chronic back pain, ankle fracture, septic shock, dysfunctional (neurogenic) bladder status post self-catheterization, urinary retention, recurrent UTI, renal stones status post multiple lithotripsy was sent in to the ED from Dr. Moe office for the evaluation of shortness of breath. In the office patient was found to be in respiratory distress, desaturated and was sent to the ER for further evaluation. ofnote, the patient was recently admitted in [facility] due to acute pyelonephritis and sepsis was discharged home on 12/22/2015. Vitals on admission temperature 96.9, pulse 110, respiratory rate 21, blood pressure 119/74, first on 7 L , down to 4 L of oxygen,saturating more than 92%. labs- Leukocytosis 14.2 without any bands, H&H low at 10.6/32.5 with MCV of 80.5. ABG done in the ED showed a pH of 7.47 with PCO2 of 30, D dimer elevated at 713 elevated proBNP 2420. EKG: Sinus tachycardia heart rate in 100s, with multiple PVCs, left fascicular block. Chest x-ray Pulmonary hypoinflation. Minimal dependent bibasilar atelectasis. Otherwise, no acute pulmonary process. Problem list 1. Acute COPD exacerbation/pneumonia 2. Acute hypoxemic respiratory failure 3. Hypertension 4. Hyperlipidemia 5. Coronary artery disease 6. Chronic back pain 7. Neurogenic bladder 8. Urinary retention 9. Recurrent renal stones and recurrent UTIs Acute COPD exacerbation/pneumonia patient smoked cigars for almost 20 years, has been diagnosed with emphysema ( COPD). 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 Has never went for pulmonary function tests before. Presented with worsening shortness of breath for couple of weeks. Associated with cough and white colored sputum production. He was sent to Dr. Moe's office by primary care doctor where he was found to be desaturating. He was requiring high amounts of oxygen in the emergency room. Of note patient is not on home oxygen. Admitted for acute COPD exacerbation/pneumonia * Admitted to telemetry floor for continuous monitoring * Monitor vitals every shift * Maintain oxygen saturations above 90% * Provide supplemental oxygen * Patient is saturating at 92% on 4 L oxygen * WBC count elevated on admission 14.2 - 16.2 With no bands * CAT scan chest ruled out pulmonary embolism but revealed small bilateral apical infiltrates suggestive of pneumonia * On antibiotics IV ceftriaxone and azithromycin * On IV methylprednisolone 40 mg every 8 hours * Urine streptococcal antigen and urine Legionella [id number] * Follow-up sputum cultures * Follow-up blood culture * Total respiratory care * Started Symbicort and Spiriva * Continue albuterol * Surveillance Director on board Ruled out ACS Patient complains of on and off chest pain. Ruled out pulmonary embolism Serial EKGs and troponins negative Ruled out acute coronary syndrome Community Nurse on board Will get echocardiogram Acute hypoxic respiratory failure Patient was diagnosed with COPD-emphysema. Not on home oxygen. However patient started having shortness of breath for 3-4 weeks. Desaturated to 80s on 4 L oxygen. Requiring high amount of oxygen to maintain above 90%. * Provide supplemental oxygen. History of coronary artery disease (NH 2015 status post cardiac cath and stent placement) * Continue home medications including aspirin, atorvastatin Hypertension Continue losartan Hyperlipidemia continue statins History of neurogenic bladder on straight cath protocol * Continue straight cath protocol in the hospital * Continue with tamsulosin. History of chronic back pain with neuropathy * Continue home dose of Lyrica * continue oxycodone Mild to moderate pain controlled with Tylenol and oxycodone. DVT prophylaxis subcutaneous Lovenox Patient is full code. regular diet Problem List: 1. Chronic back pain 2. Chest pain 3. Hypoxia 4. COPD (chronic obstructive pulmonary disease) 5. Emphysema of lung Pain Ratin Pain Location: none Pain Goal: Remain pain free Pain Plan: tylinol Tomorrow's Labs & Rationales: cbc in the setting of pneumonia
[2016-02-14 08:01] VITALS: BP 144/78
--- NOTE | 2016-02-14 11:55 | PN- Att Addend ---
Attending Addendum Attending Brief Note Patient seen and examined, feels okay. He is very curious to know what is wrong with him. He is currently requiring 4 L of oxygen. He denies any current chest pain. Patient is a 70-year-old man with past medical history significant for hypertension , hyperlipidemia , chronic back pain, bilateral neuropathic pain on Lyrica, dysfunctional bladder (doing self catheterization), sepsis, coronary artery disease status post stenting, nephrolithiasis status post multiple lithotripsy, right sided hydronephrosis status post stent removal , recurrent UTI COPD/emphysema , not on home oxygen admitted with chest pain and acute hypoxic respiratory failure. Vital Signs Date Time Temp Pulse Resp B/P Pulse O2 O2 Flow FiO2 Ox Delivery Rate 02/13 1012 Nasal 4.0L Cannula 02/13 0922 96 144/78 02/13 0922 96 144/78 02/13 0801 98.0 96 18 144 94 Nasal 4.0L Cannula 02/13 0800 Nasal 4.0L Cannula 02/13 0207 94 Nasal 4.0L Cannula 02/12 2138 97.9 103 20 154/74 90 02/12 2133 95 Nasal 4.0L Cannula 02/12 1918 98.7 111 20 152/86 95 Nasal 4.0L Cannula 02/12 1849 97.0 112 16 178/94 95 Nasal 7.0L Cannula 02/12 1740 94 Nasal 7.0L Cannula 02/12 1738 96.9 110 21 119/74 94 Nasal 7.0L Cannula 02/12 1700 98 Nasal 4.0L Cannula on exam: aox3, nad. cv; s1,s2, rrr. resp; clear b/l but decreased bs at bases. abd; soft, nt, bs+ ext; no edema. Laboratory Tests 02/13 02/13 02/13 0535 0530 0000 Chemistry Sodium (137 - 145 mmol/L) 138 Potassium (3.5 - 5.1 mmol/L) 4.8 Chloride (98 - 107 mmol/L) 101 Carbon Dioxide (22 - 30 mmol/L) 26 Anion Gap (5 - 16) 11 BUN (9 - 20 mg/dL) 26 H Creatinine (0.7 - 1.2 mg/dL) 1.1 Estimated GFR (>60 ml/min) > 60 BUN/Creatinine Ratio (7 - 25 %) 23.6 Troponin I (<0.11 ng/ml) 0.08 Cancelled 0.09 Vitamin B12 (239 - 931 pg/mL) 343 TSH (0.270 - 4.200 uIU/mL) 0.142 L Free T4 (0.78 - 2.44 ng/dL) 1.21 Thyroxine (T4) (4.5 - 10.9 ug/dL) 7.3 Hematology CBC w Diff NO MAN DIFF REQ WBC (4.8 - 10.8 /CUMM) 16.2 H RBC (4.70 - 6.10 /CUMM) 3.66 L Hgb (14.0 - 18.0 G/DL) 9.9 L Hct (42 - 52 %) 29.2 L MCV (80.0 - 94.0 FL) 79.7 L MCH (27.0 - 31.0 PG) 27.0 RDW (11.5 - 14.5 %) 17.3 H Plt Count (130 - 400 /CUMM) 300 MPV (7.4 - 10.4 FL) 8.0 Gran % (42.2 - 75.2 %) 96.3 H Lymphocytes % (20.5 - 51.1 %) 2.2 L Monocytes % (1.7 - 9.3 %) 1.5 L Eosinophils % (0 - 5 %) 0 Basophils % (0.0 - 2.0 %) 0 L Absolute Granulocytes (1.4 - 6.5 /CUMM) 15.6 H Absolute Lymphocytes (1.2 - 3.4 /CUMM) 0.4 L Absolute Monocytes (0.10 - 0.60 /CUMM) 0.2 Absolute Eosinophils (0.0 - 0.7 /CUMM) 0 Absolute Basophils (0.0 - 0.2 /CUMM) 0 PUBS MCHC (33.0 - 37.0 G/DL) 33.9 02/12 02/12 1724 1650 Blood Gas pH (7.35 - 7.45 PH) 7.47 H pCO2 (35 - 45 TORR) 32 L pO2 (80 - 100 TORR) 71 L HCO3 (21 - 28 MEQ/L) 23 ABG O2 Sat (Measured) (>96.0 %) 93.0 L Carboxyhemoglobin (1.5 - 5.0 %) 0.3 L O2 Concentration % 4L O2 Delivery Method NC Chemistry Sodium (137 - 145 mmol/L) 137 Potassium (3.5 - 5.1 mmol/L) 5.1 Chloride (98 - 107 mmol/L) 100 Carbon Dioxide (22 - 30 mmol/L) 26 Anion Gap (5 - 16) 11 BUN (9 - 20 mg/dL) 25 H Creatinine (0.7 - 1.2 mg/dL) 1.1 Estimated GFR (>60 ml/min) > 60 BUN/Creatinine Ratio (7 - 25 %) 22.7 Glucose (65 - 99 mg/dL) 153 H Calcium (8.4 - 10.2 mg/dL) 9.3 Total Bilirubin (0.2 - 1.3 mg/dL) 0.7 AST (17 - 59 U/L) 51 ALT (21 - 72 U/L) 77 H Alkaline Phosphatase (< 127 U/L) 195 H Troponin I (<0.11 ng/ml) 0.09 [id number] Pept (<125 pg/mL) 2420 H Total Protein (6.3 - 8.2 g/dL) 6.9 Albumin (3.5 - 5.0 g/dL) 3.4 L Globulin (1.9 - 4.2 gm/dL) 3.5 Albumin/Globulin Ratio (1.1 - 2.2 %) 1.0 L Coagulation PT (9.4 - 12.5 SEC) 14.9 H INR (0.90 - 1.17) 1.42 H APTT (25 - 37 SEC) 34 D-Dimer (70 - 232 ng/ml) 713 H Hematology CBC w Diff NO MAN DIFF REQ WBC (4.8 - 10.8 /CUMM) 14.2 H RBC (4.70 - 6.10 /CUMM) 3.99 L Hgb (14.0 - 18.0 G/DL) 10.6 L Hct (42 - 52 %) 32.1 L MCV (80.0 - 94.0 FL) 80.5 MCH (27.0 - 31.0 PG) 26.6 L RDW (11.5 - 14.5 %) 17.5 H Plt Count (130 - 400 /CUMM) 318 MPV (7.4 - 10.4 FL) 7.6 Gran % (42.2 - 75.2 %) 97.5 H Lymphocytes % (20.5 - 51.1 %) 2.1 L Monocytes % (1.7 - 9.3 %) 0.3 L Eosinophils % (0 - 5 %) 0.1 Basophils % (0.0 - 2.0 %) 0 L Absolute Granulocytes (1.4 - 6.5 /CUMM) 13.9 H Absolute Lymphocytes (1.2 - 3.4 /CUMM) 0.3 L Absolute Monocytes (0.10 - 0.60 /CUMM) 0 L Absolute Eosinophils (0.0 - 0.7 /CUMM) 0 Absolute Basophils (0.0 - 0.2 /CUMM) 0 PUBS MCHC (33.0 - 37.0 G/DL) 33.1 Miscellaneous Phlebotomy Draw Site RIGHT RADIAL A/P; Patient is a 70-year-old man with past medical history significant for hypertension , hyperlipidemia , chronic back pain, bilateral neuropathic pain on Lyrica, dysfunctional bladder (doing self catheterization), sepsis, coronary artery disease status post stenting, nephrolithiasis status post multiple lithotripsy, right sided hydronephrosis status post stent removal , recurrent UTI COPD/emphysema , not on home oxygen admitted with chest pain and acute hypoxic respiratory failure. Currently patient getting treated with the IV steroids. Per pulmonology recommendations antibiotics. Patient to get echocardiogram. Troponins are negative. Patient to be seen by cardiology. Pulmonary embolism ruled out with negative chest CTA. Continue all the inhalers and current medications. DVT prophylaxis: Lovenox. Will follow cardiology and pulmonary recommendations for any further testing. D/W patient's at bedside.
--- NOTE | 2016-02-14 12:29 | Cons- Pulmonary ---
General Information and HPI Consulting Request Date of Consult: 02/14/16 Requested By: Dr. Ash Reason for Consult: Hypoxemic respiratory failure Source of Information: patient Exam Limitations: no limitations History of Present Illness: Patient is a 70-year-old man that I met yesterday in the office. He was sent to the emergency room after an encounter in the office revealed his oxygen saturation 82-84% on room air at rest. He was previously seen 01/21/2016 in the emergency room for bilateral chest tightness and pressure. The chest discomfort appeared to get worse with inspiration. This prompted the CAT scan of the chest revealing moderate emphysema without a pulmonary embolism. The patient has been on sporadic inhalers including Flovent, Combivent, and albuterol. He has no maintenance inhaler at this time and he has no pulmonary function testing on record. There are no records at [facility] of an echocardiogram but he does follow with Dr. Hannon. The chest pain previously was unrevealing however he does have a coronary artery disease history. He is a previous smoker quit in July 2014 smoked cigars and he did inhale them for over 20 years. He worked in the [employer] industry as well as and could have had environmental exposures as well. Upon arrival to the emergency room the patient required up to 7 L of oxygen to maintain an oxygen saturation above 90%. CAT scan was reperformed and it did not reveal a pulmonary embolism however small subpleural infiltrate bilaterally were noted which were new at the lung apices on the CAT scan and mosaicism apparently consistent with small airways disease. He was started on Zithromax and Solu-Medrol and nebulizer therapy. His white blood cell count elevation was 16.2 this morning. His BNP was noted to be elevated at 2420. With oxygen therapy he remarkably feels much better today but he maintains some chest discomfort and telemetry was unrevealing. No nausea no vomiting no diarrhea no constipation. No leg edema. No phlegm but some dry cough intermittently. No headaches and no dizziness at this time. Allergies/Medications Allergies: Coded Allergies: NO KNOWN ALLERGIES (01/02/16) Home Med List: Ascorbic Acid (Vitamin C) 500 MG CAPSULE.ER 1 CAP PO BID SUPPLEMENT (Reported ) Aspirin (Ecotrin*) 81 MG TABLET.DR 1 TAB PO DAILY HEART/BLOOD (Reported) Atorvastatin Calcium 80 MG TABLET 1 TAB PO QPM CHOLESTEROL (Reported) Fluticasone Propionate (Flovent Hfa) 220 MCG AER.W.ADAP RESPIRATORY (Reported) Lactobacillus Acidophilus (Probiotic) 10 BILLION CELL CAPSULE 1 CAP PO DAILY PROBIOTIC (Reported) Losartan Potassium 25 MG TABLET 1 TAB PO DAILY HEART (Reported) Metoprolol Tartrate 25 MG TABLET 1 TAB PO BID HEART (Reported) Mometasone Furoate (Nasonex) 50 MCG SPRAY.PUMP 1 SPRAY NASB PRN ALLERGIES ( Reported) Multivitamin and Mypmerwc561 (Centrum Silver) 1 TAB TAB 1 TAB PO DAILY SUPPLEMENT (Reported) Nitroglycerin 0.4 MG TAB.SUBL 1 TAB SL AD PRN CHEST PAIN (Reported) 1st sign of attack; may repeat every 5 minutes until relief; if pain persists after 3 tablets in 15 minutes, prompt medical att Prednisone 20 MG TABLET STEROID TAPER (Reported) Pregabalin (Lyrica) 50 MG CAPSULE 1 CAP PO BID UNKNOWN (Reported) Tamsulosin HCl 0.4 MG CAP.ER.24H 1 CAP PO DAILY (Reported) Current Medications: Current Medications Sig/Darvin Start time Last Medication Dose Route Stop Time Status Admin Acetaminophen 650 MG Q6P PRN 02/12 2145 AC 02/13 PO 0800 Al Hydroxide/Mg 30 ML Q4-6 PRN PRN 02/13 0415 AC Hydroxide PO Albuterol Sulfate 3 ML Q4P PRN 02/13 1030 AC INH Albuterol Sulfate 3 ML ONCE ONE 02/13 0145 DC 02/13 INH 02/13 0146 0154 Albuterol Sulfate 3 ML ONCE ONE 02/12 1700 DC 02/12 INH 02/12 1701 1700 Aspirin Buffered 81 MG DAILY 02/13 1000 AC 02/13 PO 0922 Atorvastatin Calcium 80 MG QPM 02/13 2200 AC PO Azithromycin 500 MG DAILY 02/12 2245 AC 02/13 Sodium Chloride 250 ML IV 0927 Budesonide/ 2 PUF BID 02/13 1022 AC 02/13 Formoterol Fumarate INH 1158 Ceftriaxone Sodium 1,000 MG DAILY 02/13 1014 AC 02/13 IV 1158 Enoxaparin Sodium 40 MG DAILY 02/13 1000 AC 02/13 SC 0926 Fluticasone 2 PUF BID 02/12 2245 AC 02/13 Propionate INH 0923 Ipratropium [place] 2.5 ML ONCE ONE 02/12 1700 DC 02/12 INH 02/12 1701 1700 Lactobacillus 1 CAP DAILY 02/13 1000 AC 02/13 Acidophilus PO 0922 Losartan Potassium 25 MG DAILY 02/13 1000 AC 02/13 PO 0922 Melatonin 5 MG AT BEDTIME 02/13 2200 DC PO Melatonin 5 MG AT BEDTIME 02/12 2359 AC 02/13 PO 0011 Methylprednisolone 40 MG Q8 02/12 2245 AC 02/13 IV 0636 Methylprednisolone 0 .STK-MED ONE 02/12 1710 DC .ROUTE Methylprednisolone 125 MG ONCE ONE 02/12 1700 DC 02/12 IV 02/12 1701 1727 Metoprolol Tartrate 25 MG BID 02/13 1000 CAN PO Nitroglycerin 0.4 MG Q 5 MINUTES X 3 DO.. 02/12 2215 AC 02/13 SL 0026 Omeprazole 40 MG DAILY AC 02/13 0700 AC 02/13 PO 0636 Oxycodone HCl 5 MG Q6 PRN 02/12 2145 AC 02/13 PO 0800 Oxycodone/ 1 TAB ONCE ONE 02/12 1830 DC 02/12 Acetaminophen PO 02/12 1831 1823 Oxycodone/ 0 .STK-MED ONE 02/12 1822 DC Acetaminophen PO Polyethylene Glycol 17 GM DAILY PRN 02/13 0815 AC 02/13 PO 0923 Pregabalin 50 MG BID 02/12 2207 AC 02/13 PO 0923 Tamsulosin HCl 0.4 MG DAILY 02/13 1000 AC 02/13 PO 0922 Tiotropium [place] 1 PUF DAILY 02/13 1022 AC 02/13 INH 1158 Review of Systems Comments 18 point Review of Systems performed. Positive and negative pertinent findings are deliniated in the HPI. Otherwise the ROS is negative. Past History Travel History Traveled to [place] past 21 day No Medical History Blood Transfusion Hx: Yes Neurological: NONE EENT: hearing loss Cardiovascular: hyperlipidemia, myocardial infarction, hypertension Respiratory: asthma Gastrointestinal: NONE Hepatic: NONE Renal: dysfunctional bladder, self catheterizes. 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 Home Services at Home: None Smoking Status: Former Smoker ETOH Use: denies use Illicit Drug Use: denies illicit drug use Exam & Diagnostic Data Last 24 Hrs of Vital Signs/I&O Vital Signs Date Time Temp Pulse Resp B/P Pulse O2 O2 Flow FiO2 Ox Delivery Rate 02/13 1012 Nasal 4.0L Cannula 02/13 0922 96 144/78 02/13 0922 96 144/78 02/13 0801 98.0 96 18 14478 94 Nasal 4.0L Cannula 02/13 0800 Nasal 4.0L Cannula 02/13 0207 94 Nasal 4.0L Cannula 02/12 2138 97.9 103 20 154/74 90 02/12 2133 95 Nasal 4.0L Cannula 02/12 1918 98.7 111 20 152/86 95 Nasal 4.0L Cannula 02/12 1849 97.0 112 16 178/94 95 Nasal 7.0L Cannula 02/12 1740 94 Nasal 7.0L Cannula 02/12 1738 96.9 110 21 119/74 94 Nasal 7.0L Cannula 02/12 1700 98 Nasal 4.0L Cannula Intake & Output 02/13 1600 02/13 0800 02/13 0000 Intake Total 400 100 Output Total 525 Balance -125 100 Intake, IV 100 Intake, Oral 400 Output, Urine 525 Patient 215 lb Weight Physical Exam Other Physical Findings: General - Alert, awake and oriented HEENT - normocephalic, atraumatic Cardiovascular - S1, S2, systolic murmur Lungs - prolonged end expiratory phase, rare rhonchi Abdomen - soft, bowel sounds positive, no tenderness Extremities - without edema or cyanosis Last 48 Hrs of Labs/Pantera: Laboratory Tests 02/14/16 0535: Anion Gap 11, Estimated GFR > 60, BUN/Creatinine Ratio 23.6, Troponin I 0.08, CBC w Diff NO MAN DIFF REQ, RBC 3.66 L, MCV 79.7 L, MCH 27.0, RDW 17.3 H, MPV 8.0, Gran % 96.3 H, Lymphocytes % 2.2 L, Monocytes % 1.5 L, Eosinophils % 0, Basophils % 0 L, Absolute Granulocytes 15.6 H, Absolute Lymphocytes 0.4 L, Absolute Monocytes 0.2, Absolute Eosinophils 0, Absolute Basophils 0, PUBS MCHC 33.9 02/14/16 0530: Troponin I Cancelled 02/14/16 0000: Troponin I 0.09, Vitamin B12 343, TSH 0.142 L, Free T4 1.21, Thyroxine (T4) 7.3 02/13/16 1724: Anion Gap 11, Estimated GFR > 60, BUN/Creatinine Ratio 22.7, Glucose 153 H, Calcium 9.3, Total Bilirubin 0.7, AST 51, ALT 77 H, Alkaline Phosphatase 195 H , Troponin I 0.09, Hyv-E-Nxqlqjnfizc Pept 2420 H, Total Protein 6.9, Albumin 3.4 L, Globulin 3.5, Albumin/Globulin Ratio 1.0 L, PT 14.9 H, INR 1.42 H, APTT 34, D-Dimer 713 H, CBC w Diff NO MAN DIFF REQ, RBC 3.99 L, MCV 80.5, MCH 26.6 L, RDW 17.5 H, MPV 7.6, Gran % 97.5 H, Lymphocytes % 2.1 L, Monocytes % 0.3 L, Eosinophils % 0.1, Basophils % 0 L, Absolute Granulocytes 13.9 H, Absolute Lymphocytes 0.3 L, Absolute Monocytes 0 L, Absolute Eosinophils 0, Absolute Basophils 0, PUBS MCHC 33.1 02/13/16 1650: pH 7.47 H, pCO2 32 L, pO2 71 L, HCO3 23, ABG O2 Sat (Measured) 93.0 L, Carboxyhemoglobin 0.3 L, O2 Concentration % 4L, O2 Delivery Method NC, Phlebotomy Draw Site RIGHT RADIAL Assessment/Plan Impression/Plan: Impression 70 year old man -Hypoxemic respiratory failure, likely acute on chronic secondary to emphysema/ COPD with an exacerbation -infiltrates bilateral apices along with mild leukocytosis not previously seen can be consistent with bilateral community acquire pneumonia -elevated BNP/murmur Plan -d/c flovent -add ceftriaxone for now -legionella ag, strep ag -sputum cx -spo2 >92% -solumedrol 40mg iv q8h - can switch to q12 tomorrow -add symbicort 160/4.5 2 puffs BID with rinsing of the mouth -add spiriva 1 capsule (2 puffs) daily -TRC/Nebs -cardiology evaluation -ECHOcardiogram -telemetry monitoring, continous spo2 monitoring -will require outpt pfts -thyroid mass workup per primary team DVT prophylaxis at all times Consult Acknowledgment - Thank you for your consult request.
--- NOTE | 2016-02-14 14:45 | Cons- Cardiology ---
General Information and HPI Consulting Request Date of Consult: 02/14/16 Requested By: RICH MILLIGAN,EUGENIO Reason for Consult: dyspnea Source of Information: patient, old records History of Present Illness: This is a 70 y/o Male with a PMH of CAD with NSTEMI (DAMARI to LAD 2014), HTN, HLD, neurogenic bladder, chronic back pain, bronchospastic airway disease, and hydronephrosis who presents to [facility] with hypoxia and dyspnea. He had recently been seen in the ER for pleuritic chest pain. He had recently completed an outpatient oral steroid course but over the last few days had more dyspnea at rest and with exertion along with a minimally productive cough. Denied associated fevers, chills, focal weakness, diaphoresis, or exertional chest pain. Does still have some residual sharp chest pain which is exacerbated by deep inspiration. He had seen Dr. Moe in the office and was found to be hypoxic and was sent to ER for further treatment. He is improving since admission. Denies syncope, palpitations, or PND. Has had no recent symptoms that were similar to the symptoms that occurred prior to his [place] in 2014 (he had substernal heaviness prior to that event). Allergies/Medications Allergies: Coded Allergies: NO KNOWN ALLERGIES (01/02/16) Home Med List: Ascorbic Acid (Vitamin C) 500 MG CAPSULE.ER 1 CAP PO BID SUPPLEMENT (Reported ) Aspirin (Ecotrin*) 81 MG TABLET.DR 1 TAB PO DAILY HEART/BLOOD (Reported) Atorvastatin Calcium 80 MG TABLET 1 TAB PO QPM CHOLESTEROL (Reported) Fluticasone Propionate (Flovent Hfa) 220 MCG AER.W.ADAP RESPIRATORY (Reported) Lactobacillus Acidophilus (Probiotic) 10 BILLION CELL CAPSULE 1 CAP PO DAILY PROBIOTIC (Reported) Losartan Potassium 25 MG TABLET 1 TAB PO DAILY HEART (Reported) Metoprolol Tartrate 25 MG TABLET 1 TAB PO BID HEART (Reported) Mometasone Furoate (Nasonex) 50 MCG SPRAY.PUMP 1 SPRAY NASB PRN ALLERGIES ( Reported) Multivitamin and Vsrgluxn173 (Centrum Silver) 1 TAB TAB 1 TAB PO DAILY SUPPLEMENT (Reported) Nitroglycerin 0.4 MG TAB.SUBL 1 TAB SL AD PRN CHEST PAIN (Reported) 1st sign of attack; may repeat every 5 minutes until relief; if pain persists after 3 tablets in 15 minutes, prompt medical att Prednisone 20 MG TABLET STEROID TAPER (Reported) Pregabalin (Lyrica) 50 MG CAPSULE 1 CAP PO BID UNKNOWN (Reported) Tamsulosin HCl 0.4 MG CAP.ER.24H 1 CAP PO DAILY (Reported) Current Medications: Current Medications Sig/Darvin Start time Last Medication Dose Route Stop Time Status Admin Acetaminophen 650 MG Q6P PRN 02/12 2145 AC 02/13 PO 0800 Al Hydroxide/Mg 30 ML Q4-6 PRN PRN 02/13 0415 AC Hydroxide PO Albuterol Sulfate 3 ML Q4P PRN 02/13 1030 AC INH Albuterol Sulfate 3 ML ONCE ONE 02/13 0145 DC 02/13 INH 02/13 0146 0154 Albuterol Sulfate 3 ML ONCE ONE 02/12 1700 DC 02/12 INH 02/12 1701 1700 Aspirin Buffered 81 MG DAILY 02/13 1000 AC 02/13 PO 0922 Atorvastatin Calcium 80 MG QPM 02/13 2200 AC PO Azithromycin 500 MG DAILY 02/12 2245 AC 02/13 Sodium Chloride 250 ML IV 0927 Budesonide/ 2 PUF BID 02/13 1022 AC 02/13 Formoterol Fumarate INH 1158 Ceftriaxone Sodium 1,000 MG DAILY 02/13 1014 AC 02/13 IV 1158 Enoxaparin Sodium 40 MG DAILY 02/13 1000 AC 02/13 SC 0926 Fluticasone 2 PUF BID 02/12 2245 DC 02/13 Propionate INH 0923 Ipratropium [place] 2.5 ML ONCE ONE 02/12 1700 DC 02/12 INH 02/12 1701 1700 Lactobacillus 1 CAP DAILY 02/13 1000 AC 02/13 Acidophilus PO 0922 Losartan Potassium 25 MG DAILY 02/13 1000 AC 02/13 PO 0922 Melatonin 5 MG AT BEDTIME 02/13 2200 DC PO Melatonin 5 MG AT BEDTIME 02/12 2359 AC 02/13 PO 0011 Methylprednisolone 40 MG Q12 02/14 1000 AC IV Methylprednisolone 40 MG Q8 02/12 2245 AC 02/13 IV 02/13 2300 0636 Methylprednisolone 0 .STK-MED ONE 02/12 1710 DC .ROUTE Methylprednisolone 125 MG ONCE ONE 02/12 1700 DC 02/12 IV 02/12 1701 1727 Metoprolol Tartrate 25 MG BID 02/13 1000 CAN PO Nitroglycerin 0.4 MG Q 5 MINUTES X 3 DO.. 02/12 2215 AC 02/13 SL 0026 Omeprazole 40 MG DAILY AC 02/13 0700 AC 02/13 PO 0636 Oxycodone HCl 5 MG Q6 PRN 02/12 2145 AC 02/13 PO 0800 Oxycodone/ 1 TAB ONCE ONE 02/12 1830 DC 02/12 Acetaminophen PO 02/12 1831 1823 Oxycodone/ 0 .STK-MED ONE 02/12 1822 DC Acetaminophen PO Polyethylene Glycol 17 GM DAILY PRN 02/13 0815 AC 02/13 PO 0923 Pregabalin 50 MG BID 02/12 2207 AC 02/13 PO 0923 Tamsulosin HCl 0.4 MG DAILY 02/13 1000 AC 02/13 PO 0922 Tiotropium [place] 1 PUF DAILY 02/13 1022 AC 02/13 INH 1158 Review of Systems Review of Systems: As per above HPI. The remainder of a 10 point ROS was reviewed and was otherwise negative. Past History Travel History Traveled to [place] past 21 day No Medical History Blood Transfusion Hx: Yes Neurological: NONE EENT: hearing loss Cardiovascular: hyperlipidemia, myocardial infarction, hypertension Respiratory: asthma Gastrointestinal: NONE Hepatic: NONE Renal: dysfunctional bladder, self catheterizes. 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 Home Services at Home: None Smoking Status: Former Smoker ETOH Use: denies use Illicit Drug Use: denies illicit drug use Exam & Diagnostic Data Vital Signs and I&O Vital Signs Date Time Temp Pulse Resp B/P Pulse O2 O2 Flow FiO2 Ox Delivery Rate 02/13 1012 Nasal 4.0L Cannula 02/13 0922 96 144/78 02/13 0922 96 144/78 02/13 0801 98.0 96 18 14478 94 Nasal 4.0L Cannula 02/13 0800 Nasal 4.0L Cannula 02/13 0207 94 Nasal 4.0L Cannula 02/12 2138 97.9 103 20 154/74 90 02/12 2133 95 Nasal 4.0L Cannula 02/128 98.7 111 20 152/86 95 Nasal 4.0L Cannula 02/12 1849 97.0 112 16 178/94 95 Nasal 7.0L Cannula 02/12 1740 94 Nasal 7.0L Cannula 02/12 1738 96.9 110 21 119/74 94 Nasal 7.0L Cannula 02/12 1700 98 Nasal 4.0L Cannula Intake & Output 02/13 1600 02/13 0800 02/13 0000 02/12 1600 02/12 0800 02/12 0000 Intake Total 400 100 Output Total 525 Balance -125 100 Intake, IV 100 Intake, Oral 400 Output, Urine 525 Patient 215 lb Weight Physical Exam: General: no apparent distress. Alert. On NC O2. Eyes: No obvious scleral icterus. HEENT: No jugular venous distention or abnormal jugular venous pulsations. Cardiovascular: Normal intensity S1/S2. Regular. PMI not displaced. Respiratory: Mildly decreased air entry bilaterally. Abdomen: soft, no rebound tenderness Musculoskeletal: No cyanosis noted, no edema Skin: Warm Neurologic: No gross focal deficits noted. Labs/Pantera Results: Laboratory Tests 02/13 02/13 02/13 0535 0530 0000 Chemistry Sodium (137 - 145 mmol/L) 138 Potassium (3.5 - 5.1 mmol/L) 4.8 Chloride (98 - 107 mmol/L) 101 Carbon Dioxide (22 - 30 mmol/L) 26 Anion Gap (5 - 16) 11 BUN (9 - 20 mg/dL) 26 H Creatinine (0.7 - 1.2 mg/dL) 1.1 Estimated GFR (>60 ml/min) > 60 BUN/Creatinine Ratio (7 - 25 %) 23.6 Troponin I (<0.11 ng/ml) 0.08 Cancelled 0.09 Vitamin B12 (239 - 931 pg/mL) 343 TSH (0.270 - 4.200 uIU/mL) 0.142 L Free T4 (0.78 - 2.44 ng/dL) 1.21 Thyroxine (T4) (4.5 - 10.9 ug/dL) 7.3 Hematology CBC w Diff NO MAN DIFF REQ WBC (4.8 - 10.8 /CUMM) 16.2 H RBC (4.70 - 6.10 /CUMM) 3.66 L Hgb (14.0 - 18.0 G/DL) 9.9 L Hct (42 - 52 %) 29.2 L MCV (80.0 - 94.0 FL) 79.7 L MCH (27.0 - 31.0 PG) 27.0 RDW (11.5 - 14.5 %) 17.3 H Plt Count (130 - 400 /CUMM) 300 MPV (7.4 - 10.4 FL) 8.0 Gran % (42.2 - 75.2 %) 96.3 H Lymphocytes % (20.5 - 51.1 %) 2.2 L Monocytes % (1.7 - 9.3 %) 1.5 L Eosinophils % (0 - 5 %) 0 Basophils % (0.0 - 2.0 %) 0 L Absolute Granulocytes (1.4 - 6.5 /CUMM) 15.6 H Absolute Lymphocytes (1.2 - 3.4 /CUMM) 0.4 L Absolute Monocytes (0.10 - 0.60 /CUMM) 0.2 Absolute Eosinophils (0.0 - 0.7 /CUMM) 0 Absolute Basophils (0.0 - 0.2 /CUMM) 0 PUBS MCHC (33.0 - 37.0 G/DL) 33.9 02/12 02/12 1724 1650 Blood Gas pH (7.35 - 7.45 PH) 7.47 H pCO2 (35 - 45 TORR) 32 L pO2 (80 - 100 TORR) 71 L HCO3 (21 - 28 MEQ/L) 23 ABG O2 Sat (Measured) (>96.0 %) 93.0 L Carboxyhemoglobin (1.5 - 5.0 %) 0.3 L O2 Concentration % 4L O2 Delivery Method NC Chemistry Sodium (137 - 145 mmol/L) 137 Potassium (3.5 - 5.1 mmol/L) 5.1 Chloride (98 - 107 mmol/L) 100 Carbon Dioxide (22 - 30 mmol/L) 26 Anion Gap (5 - 16) 11 BUN (9 - 20 mg/dL) 25 H Creatinine (0.7 - 1.2 mg/dL) 1.1 Estimated GFR (>60 ml/min) > 60 BUN/Creatinine Ratio (7 - 25 %) 22.7 Glucose (65 - 99 mg/dL) 153 H Calcium (8.4 - 10.2 mg/dL) 9.3 Total Bilirubin (0.2 - 1.3 mg/dL) 0.7 AST (17 - 59 U/L) 51 ALT (21 - 72 U/L) 77 H Alkaline Phosphatase (< 127 U/L) 195 H Troponin I (<0.11 ng/ml) 0.09 Ghf-[id number]-Nyllfrchhpu Pept (<125 pg/mL) 2420 H Total Protein (6.3 - 8.2 g/dL) 6.9 Albumin (3.5 - 5.0 g/dL) 3.4 L Globulin (1.9 - 4.2 gm/dL) 3.5 Albumin/Globulin Ratio (1.1 - 2.2 %) 1.0 L Coagulation PT (9.4 - 12.5 SEC) 14.9 H INR (0.90 - 1.17) 1.42 H APTT (25 - 37 SEC) 34 D-Dimer (70 - 232 ng/ml) 713 H Hematology CBC w Diff NO MAN DIFF REQ WBC (4.8 - 10.8 /CUMM) 14.2 H RBC (4.70 - 6.10 /CUMM) 3.99 L Hgb (14.0 - 18.0 G/DL) 10.6 L Hct (42 - 52 %) 32.1 L MCV (80.0 - 94.0 FL) 80.5 MCH (27.0 - 31.0 PG) 26.6 L RDW (11.5 - 14.5 %) 17.5 H Plt Count (130 - 400 /CUMM) 318 MPV (7.4 - 10.4 FL) 7.6 Gran % (42.2 - 75.2 %) 97.5 H Lymphocytes % (20.5 - 51.1 %) 2.1 L Monocytes % (1.7 - 9.3 %) 0.3 L Eosinophils % (0 - 5 %) 0.1 Basophils % (0.0 - 2.0 %) 0 L Absolute Granulocytes (1.4 - 6.5 /CUMM) 13.9 H Absolute Lymphocytes (1.2 - 3.4 /CUMM) 0.3 L Absolute Monocytes (0.10 - 0.60 /CUMM) 0 L Absolute Eosinophils (0.0 - 0.7 /CUMM) 0 Absolute Basophils (0.0 - 0.2 /CUMM) 0 PUBS MCHC (33.0 - 37.0 G/DL) 33.1 Miscellaneous Phlebotomy Draw Site RIGHT RADIAL Diagnostic Data EKG Results shows SR at 95 bpm with left axis CXR Results IMPRESSION: Pulmonary hypoinflation. Minimal dependent bibasilar atelectasis. Otherwise, no acute pulmonary process. Other Results CTA 1. No evidence of pulmonary embolism. 2. Small focal subpleural infiltrate at both lung apices new since prior CT study. Mosaic attenuation of lung parenchyma most affecting the upper lobes consistent with small airways disease. Telemetry tracings were personally reviewed and shows sinus rhythm Assessment/Plan Assessment/Plan 1. COPD exacerbation with hypoxia 2. Possible PNA 3. Dyspnea on exertion 4. Pleuritic chest pain 5. Hx CAD/NSTEMI with DAMARI to the LAD in 2014 6. Hx HTN/HLD 7. Neurogenic bladder Patient appears euvolemic. No evidence of acute ACS. Pulmonary input reviewed and Abx/steroids started. Agree with obtaining an Echocardiogram and will likely be a candidate for outpatient stress test in the near future. Continue on daily ASA and statin therapy. There was no evidence of PE on CT scan. Tom Rapp MD [facility] Consult Acknowledgment - Thank you for your consult request.
[2016-02-14 16:07] VITALS: BP 132/65
[2016-02-14 23:00] VITALS: BP 128/64
[2016-02-15 05:54] LABS: ABSOLUTE BASOPHIL COUNT 0 /CUMM (0.0-0.2); ABSOLUTE EOSINOPHIL COUNT 0 /CUMM (0.0-0.7); ABSOLUTE GRANULOCYTE CT 19.5 /CUMM (1.4-6.5); ABSOLUTE LYMPH COUNT 0.4 /CUMM (1.2-3.4); ABSOLUTE MONOCYTE COUNT 0.7 /CUMM (0.10-0.60); BASOPHIL % 0.1 % (0.0-2.0); EOSINOPHIL % 0 % (0-5); GRANULOCYTE % 94.2 % (42.2-75.2); HEMATOCRIT 29.5 % (42-52); MEAN CORPUSCULAR HGB 26.2 PG (27.0-31.0); MEAN CORPUSCULAR HGB CONC 32.7 G/DL (33.0-37.0); MEAN CORPUSCULAR VOLUME 80.3 FL (80.0-94.0); PLATELET COUNT 298 /CUMM (130-400); RBC DISTRIBUTION WIDTH 18.2 % (11.5-14.5); RED BLOOD CELL CT 3.67 /CUMM (4.70-6.10); WHITE BLOOD CELL COUNT 20.7 /CUMM (4.8-10.8)
[2016-02-15 07:42] VITALS: BP 132/70
--- NOTE | 2016-02-15 07:43 | PN- Housestaff ---
AVIS GILL 02/15/16 0743: Subjective Follow-up For: Acute on chronic COPD exacerbation with hypoxemic respiratory failure Possible pneumonia Pleuritic chest pain- resolved Complaints: pain scale (0-10) Tele-Events Since Last Visit: Normal sinus rhythm Sinus tachycardia Rate 73-101 No acute events noticed on telemetry Subjective: Patient was seen and examined this morning. He is alert, awake and oriented to time place and person. No other acute events reported overnight. He denied any chest pain, palpitations, headache, dizziness or lightheadedness. He did report shortness of breath on exertion, requiring high amount of oxygen. He does complain cough associated with yellow colored sputum production. He denied any fever or chills, abdominal pain, change in bladder or bowel habits. Vitals were stable. He is afebrile, pulse 88, respiratory rate 18, blood pressure 130/70, saturating at 94% on 4 L nasal cannula Review of Systems Constitutional: Denies: see HPI. Objective Last 24 Hrs of Vital Signs/I&O Vital Signs Date Time Temp Pulse Resp B/P Pulse O2 O2 Flow FiO2 Ox Delivery Rate 02/14 0911 132/70 02/14 0800 Nasal 4.0L Cannula 02/14 0742 98.3 88 18 132/70 94 Nasal 4.0L Cannula 02/14 0000 Nasal 4.0L Cannula 02/13 2300 98.5 96 20 128/64 92 Nasal 4.0L Cannula 02/13 2046 94 Nasal 4.0L Cannula 02/13 1607 98.1 104 18 132/65 95 Nasal 4.0L Cannula Intake & Output 02/14 1600 02/14 0800 02/14 0000 Intake Total 250 476 Output Total 300 300 Balance -50 176 Intake, IV 10 11 Intake, Oral 240 465 Output, Urine 300 300 Physical Exam General Appearance: Alert, Oriented X3, Cooperative, No Acute Distress Skin: No Rashes, No Breakdown, No Significant Lesion HEENT: Atraumatic, Mucous Membr. moist/pink Neck: Supple, No JVD Lymphatic: Cervical nl Cardiovascular: Normal S1, Normal S2 Lungs: Clear to Auscultation, dec bs at lung bases Abdomen: Normal Bowel Sounds, Soft, No Tenderness Extremities: No Clubbing, No Cyanosis, No Edema Vascular: Normal Pulses Current Medications: Current Medications Sig/Darvin Start time Last Medication Dose Route Stop Time Status Admin Acetaminophen 650 MG .STK-MED ONE 02/13 2328 DC PO 02/13 2329 Acetaminophen 650 MG .STK-MED ONE 02/13 1424 DC PO 02/13 1425 Acetaminophen 650 MG Q6P PRN 02/12 2145 AC 02/14 PO 0817 Al Hydroxide/Mg 30 ML Q4-6 PRN PRN 02/13 0415 AC Hydroxide PO Albuterol Sulfate 3 ML Q4P PRN 02/13 1030 AC 02/13 INH 2045 Aspirin Buffered 81 MG DAILY 02/13 1000 AC 02/14 PO 0911 Atorvastatin Calcium 80 MG QPM 02/13 2200 AC 02/13 PO 2107 Azithromycin 500 MG DAILY 02/12 2245 AC 02/14 Sodium Chloride 250 ML IV 0909 Budesonide/ 2 PUF BID 02/13 1022 AC 02/14 Formoterol Fumarate INH 0910 Ceftriaxone Sodium 1,000 MG DAILY 02/13 1014 AC 02/14 IV 0910 Enoxaparin Sodium 40 MG DAILY 02/13 1000 DC 02/14 SC 0910 Heparin Sodium 5,000 UNIT Q8 02/14 0951 AC 02/14 (Porcine) SC 1401 Lactobacillus 1 CAP DAILY 02/13 1000 AC 02/14 Acidophilus PO 0911 Losartan Potassium 25 MG DAILY 02/13 1000 DC 02/14 PO 0911 Melatonin 5 MG AT BEDTIME 02/12 2359 AC 02/13 PO 2107 Methylprednisolone 40 MG Q12 02/14 1000 AC 02/14 IV 02/14 2300 0910 Methylprednisolone 40 MG Q8 02/12 2245 DC 02/13 IV 02/13 2300 2107 Nitroglycerin 0.4 MG Q 5 MINUTES X 3 DO.. 02/12 2215 AC 02/13 SL 0026 Omeprazole 40 MG DAILY AC 02/13 0700 AC 02/14 PO 0538 Oxycodone HCl 10 MG Q6P PRN 02/13 1600 AC 02/14 PO 1203 Oxycodone HCl 10 MG Q6 PRN 02/13 1549 DC PO Oxycodone HCl 5 MG Q6 PRN 02/12 2145 DC 02/13 PO 1436 Polyethylene Glycol 17 GM DAILY PRN 02/13 0815 AC 02/13 PO 0923 Prednisone 60 MG DAILY 02/15 1000 AC PO Pregabalin 50 MG BID 02/12 2207 AC 02/14 PO 0910 Tamsulosin HCl 0.4 MG DAILY 02/13 1000 DC 02/13 PO 0922 Tiotropium Jay [place] 1 PUF DAILY 02/15 1000 AC INH Tiotropium Jay Em 1 PUF DAILY 02/13 1022 DC 02/14 INH 0910 Last 24 Hrs of Lab/Pantera Results Last 24 Hrs of Labs/Mics: Laboratory Tests 02/15/16 1250: Urine Color YEL, Urine Clarity HAZY H, Urine pH 6.0, Ur Specific [place] 1.025, Urine Protein 30 H, Urine Ketones NEG, Urine Nitrite NEG, Urine Bilirubin NEG, Urine Urobilinogen 0.2, Ur Leukocyte Esterase SMALL H, Ur Microscopic SEDIMENT EXAMINED, Urine RBC 1-3, Urine WBC 25-50 H, Ur Epithelial Cells FEW, Granular Casts 1-3 H, Urine Hemoglobin TRACE-INTACT H, Urine Glucose NEG 02/15/16 1250: Ur Random Creatinine 56.8, Ur Random Sodium 49, Ur Random Potassium 47.5, Fraction Sodium Excret 0.8 02/15/16 0530: Anion Gap 10, Estimated GFR 54 L, BUN/Creatinine Ratio 33.8 H, CBC w Diff NO MAN DIFF REQ, RBC 3.67 L, MCV 80.3, MCH 26.2 L, RDW 18.2 H, MPV 8.0, Gran % 94.2 H, Lymphocytes % 2.1 L, Monocytes % 3.6, Eosinophils % 0, Basophils % 0.1 , Absolute Granulocytes 19.5 H, Absolute Lymphocytes 0.4 L, Absolute Monocytes 0.7 H, Absolute Eosinophils 0, Absolute Basophils 0, PUBS MCHC 32.7 L Microbiology 02/13 143 URINE ROUT: Legionella Antigen - COMP 02/13 1430 URINE ROUT: Streptococcus pneumoniae Antigen (M - COMP Assessment/Plan Assessment: Patient is a 70-year-old gentleman with past medical history significant for COPD(smoked cigars for almost 20 years)/questionable interstitial lung disease, hypertension, hyperlipidemia, CA status post cardiac stent placed in 2014, chronic back pain, ankle fracture, septic shock, dysfunctional (neurogenic) bladder status post self-catheterization, urinary retention, recurrent UTI, renal stones status post multiple lithotripsy was sent in to the ED from Dr. Moe office for the evaluation of shortness of breath. In the office patient was found to be in respiratory distress, desaturated and was sent to the ER for further evaluation. ofnote, the patient was recently admitted in [facility] due to acute pyelonephritis and sepsis was discharged home on 12/22/2015. Vitals on admission temperature 96.9, pulse 110, respiratory rate 21, blood pressure 119/74, first on 7 L , down to 4 L of oxygen,saturating more than 92%. labs- Leukocytosis 14.2 without any bands, H&H low at 10.6/32.5 with MCV of 80.5. ABG done in the ED showed a pH of 7.47 with PCO2 of 30, D dimer elevated at 713 elevated proBNP 2420. EKG: Sinus tachycardia heart rate in 100s, with multiple PVCs, left fascicular block. Chest x-ray Pulmonary hypoinflation. Minimal dependent bibasilar atelectasis. Otherwise, no acute pulmonary process. Problem list 1. Acute COPD exacerbation/pneumonia 2. Acute hypoxemic respiratory failure 3. Hypertension 4. Hyperlipidemia 5. Coronary artery disease 6. Chronic back pain 7. Neurogenic bladder 8. Urinary retention 9. Recurrent renal stones and recurrent UTIs Acute COPD exacerbation/pneumonia patient smoked cigars for almost 20 years, has been diagnosed with emphysema ( COPD). 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 Has never went for pulmonary function tests before. Presented with worsening shortness of breath for couple of weeks. Associated with cough and white colored sputum production. He was sent to Dr. Moe's office by primary care doctor where he was found to be desaturating. He was requiring high amounts of oxygen in the emergency room. Of note patient is not on home oxygen. Admitted for acute COPD exacerbation/pneumonia * Admitted to telemetry floor for continuous monitoring * Monitor vitals every shift * Maintain oxygen saturations above 90% * Provide supplemental oxygen * Patient is saturating at 94% on 4 L oxygen * WBC count elevated on admission 14.2 - 16.2-20.7 With no bands * CAT scan chest ruled out pulmonary embolism but revealed small bilateral apical infiltrates suggestive of pneumonia * On antibiotics IV ceftriaxone and azithromycin day2. * On IV methylprednisolone 40 mg every 12 hours * Urine streptococcal antigen and urine Legionella antigen-negative * Follow-up sputum cultures * Follow-up blood culture * Total respiratory care * Started Symbicort and Spiriva * Continue albuterol * Brush Sander on board Ruled out ACS Patient complains of on and off chest pain. Ruled out pulmonary embolism Serial EKGs and troponins negative Ruled out acute coronary syndrome [employer] on board Will get echocardiogram Acute hypoxic respiratory failure Patient was diagnosed with COPD-emphysema. Not on home oxygen. However patient started having shortness of breath for 3-4 weeks. Desaturated to 80s on 4 L oxygen. Requiring high amount of oxygen to maintain above 90%. * Provide supplemental oxygen. History of coronary artery disease (CA 2015 status post cardiac cath and stent placement) * Continue home medications including aspirin, atorvastatin Hypertension losartan on hold as creatinine is 1.3 this morning Hyperlipidemia continue statins History of neurogenic bladder on straight cath protocol * Continue straight cath protocol in the hospital History of chronic back pain with neuropathy * Continue home dose of Lyrica * continue oxycodone Mild to moderate pain controlled with Tylenol and oxycodone. DVT prophylaxis subcutaneous heparin Patient is full code. regular diet Problem List: 1. Chronic back pain 2. Hypoxia 3. COPD (chronic obstructive pulmonary disease) 4. Emphysema of lung Pain Ratin Pain Location: back pain- chronic Pain Goal: Remain pain free Pain Plan: tylinol oxycodone Tomorrow's Labs & Rationales: CBC in the setting of leukocytosis BEP in the setting of rising creatinine [facility] 02/15[facility]16 1135: Attending MD Review Statement Attending Statement Attending MD Statement: examined this patient, discuss w/resident/PA/PULL WORKER, agreed w/resident/PA/PULL WORKER, discussed with family, reviewed EMR data (avail), discussed with nursing, discussed with case mgmt, reviewed images, amended to note Attending Assessment/Plan: Patient seen and examined, feels almost the same. Still requiring 4 L of oxygen and desats to 80s without oxygen. Vital Signs Date Time Temp Pulse Resp B/P Pulse O2 O2 Flow FiO2 Ox Delivery Rate 02/14 0911 132/70 02/14 0800 Nasal 4.0L Cannula 02/14 0742 98.3 88 18 132/70 94 Nasal 4.0L Cannula 02/14 0000 Nasal 4.0L Cannula 02/13 2300 98.5 96 20 128/64 92 Nasal 4.0L Cannula 02/13 2046 94 Nasal 4.0L Cannula 02/13 1607 98.1 104 18 132/65 95 Nasal 4.0L Cannula on exam; aox3, nad. cv; s1, s2, rrr. resp; + b/l exp wheeze. abd; soft, nt, bs+. ext; no edema. Laboratory Tests 02/14 0530 Chemistry Sodium (137 - 145 mmol/L) 138 Potassium (3.5 - 5.1 mmol/L) 5.1 Chloride (98 - 107 mmol/L) 101 Carbon Dioxide (22 - 30 mmol/L) 26 Anion Gap (5 - 16) 10 BUN (9 - 20 mg/dL) 44 H Creatinine (0.7 - 1.2 mg/dL) 1.3 H Estimated GFR (>60 ml/min) 54 L BUN/Creatinine Ratio (7 - 25 %) 33.8 H Hematology CBC w Diff NO MAN DIFF REQ WBC (4.8 - 10.8 /CUMM) 20.7 H RBC (4.70 - 6.10 /CUMM) 3.67 L Hgb (14.0 - 18.0 G/DL) 9.6 L Hct (42 - 52 %) 29.5 L MCV (80.0 - 94.0 FL) 80.3 MCH (27.0 - 31.0 PG) 26.2 L RDW (11.5 - 14.5 %) 18.2 H Plt Count (130 - 400 /CUMM) 298 MPV (7.4 - 10.4 FL) 8.0 Gran % (42.2 - 75.2 %) 94.2 H Lymphocytes % (20.5 - 51.1 %) 2.1 L Monocytes % (1.7 - 9.3 %) 3.6 Eosinophils % (0 - 5 %) 0 Basophils % (0.0 - 2.0 %) 0.1 Absolute Granulocytes (1.4 - 6.5 /CUMM) 19.5 H Absolute Lymphocytes (1.2 - 3.4 /CUMM) 0.4 L Absolute Monocytes (0.10 - 0.60 /CUMM) 0.7 H Absolute Eosinophils (0.0 - 0.7 /CUMM) 0 Absolute Basophils (0.0 - 0.2 /CUMM) 0 PUBS MCHC (33.0 - 37.0 G/DL) 32.7 L A/P; Patient is a 70-year-old man with past medical history significant for hypertension , hyperlipidemia , chronic back pain, bilateral neuropathic pain on Lyrica, dysfunctional bladder (doing self catheterization), sepsis, coronary artery disease status post stenting, nephrolithiasis status post multiple lithotripsy, right sided hydronephrosis status post stent removal , recurrent UTI COPD/emphysema , not on home oxygen admitted with chest pain and acute hypoxic respiratory failure. Will continue the patient on IV steroids and TRC nebs. Patient still has to get echocardiogram. Appreciate input from pulmonology and cardiology. Patient is on antibiotics. Please follow-up on cultures. Continue other inhalers. Creatinine has slightly bumped up today. Please check urine lites and creatinine to see if this is prerenal azotemia. Patient was encouraged to drink more fluids. Will monitor renal function later this evening and if the creatinine continues to go up, might have to give him some IV fluids. DVt Px; Will switch lovenox to hep sq 2/2 to rise in Cr.
--- NOTE | 2016-02-15 10:28 | PN- Cardiology ---
Subjective Subjective: Patient feels he is improving. Still with cough which is improving. Still with dyspnea on exertion but pleuritic chest pain has resolved. Objective Vital Signs and I&Os Vital Signs Date Time Temp Pulse Resp B/P Pulse O2 O2 Flow FiO2 Ox Delivery Rate 02/14 0911 132/70 02/14 0742 98.3 88 18 132/70 94 Nasal 4.0L Cannula 02/14 0000 Nasal 4.0L Cannula 02/13 2300 98.5 96 20 128/64 92 Nasal 4.0L Cannula 02/13 2046 94 Nasal 4.0L Cannula 02/13 1607 98.1 104 18 132/65 95 Nasal 4.0L Cannula Intake & Output 02/14 1600 02/14 0800 02/14 0000 02/13 1600 02/13 0800 02/13 0000 Intake Total 081 022 0401 400 100 Output Total 300 300 800 525 Balance -50 176 436 -125 100 Intake, IV 10 11 291 100 Intake, Oral 240 465 945 400 Number 1 Bowel Movements Output, Urine 300 300 800 525 Patient 215 lb Weight Physical Exam: General: no apparent distress. Alert. On NC O2. Eyes: No obvious scleral icterus. HEENT: No jugular venous distention or abnormal jugular venous pulsations. Cardiovascular: Normal intensity S1/S2. Regular. PMI not displaced. Respiratory: Mildly decreased air entry bilaterally. Abdomen: soft, no rebound tenderness Musculoskeletal: No cyanosis noted, no edema Skin: Warm Neurologic: No gross focal deficits noted. Current Medications: Current Medications Sig/Darvin Start time Last Medication Dose Route Stop Time Status Admin Acetaminophen 650 MG .STK-MED ONE 02/13 2328 DC PO 02/13 2329 Acetaminophen 650 MG .STK-MED ONE 02/13 1424 DC PO 02/13 1425 Acetaminophen 650 MG Q6P PRN 02/12 2145 AC 02/14 PO 0817 Al Hydroxide/Mg 30 ML Q4-6 PRN PRN 02/13 0415 AC Hydroxide PO Albuterol Sulfate 3 ML Q4P PRN 02/13 1030 AC 02/13 INH 2045 Aspirin Buffered 81 MG DAILY 02/13 1000 AC 02/14 PO 0911 Atorvastatin Calcium 80 MG QPM 02/13 2200 AC 02/13 PO 2107 Azithromycin 500 MG DAILY 02/12 2245 AC 02/14 Sodium Chloride 250 ML IV 0909 Budesonide/ 2 PUF BID 02/13 1022 AC 02/14 Formoterol Fumarate INH 0910 Ceftriaxone Sodium 1,000 MG DAILY 02/13 1014 AC 02/14 IV 0910 Enoxaparin Sodium 40 MG DAILY 02/13 1000 DC 02/14 SC 0910 Fluticasone 2 PUF BID 02/12 2245 DC 02/13 Propionate INH 0923 Heparin Sodium 5,000 UNIT Q8 02/14 0951 AC (Porcine) SC Lactobacillus 1 CAP DAILY 02/13 1000 AC 02/14 Acidophilus PO 0911 Losartan Potassium 25 MG DAILY 02/13 1000 DC 02/14 PO 0911 Melatonin 5 MG AT BEDTIME 02/12 2359 AC 02/13 PO 2107 Methylprednisolone 40 MG Q12 02/14 1000 AC 02/14 IV 0910 Methylprednisolone 40 MG Q8 02/12 2245 DC 02/13 IV 02/13 2300 2107 Nitroglycerin 0.4 MG Q 5 MINUTES X 3 DO.. 02/12 2215 AC 02/13 SL 0026 Omeprazole 40 MG DAILY AC 02/13 0700 AC 02/14 PO 0538 Oxycodone HCl 10 MG Q6P PRN 02/13 1600 AC 02/14 PO 0538 Oxycodone HCl 10 MG Q6 PRN 02/13 1549 DC PO Oxycodone HCl 5 MG Q6 PRN 02/12 2145 DC 02/13 PO 1436 Polyethylene Glycol 17 GM DAILY PRN 02/13 0815 AC 02/13 PO 0923 Pregabalin 50 MG BID 02/12 2207 AC 02/14 PO 0910 Tamsulosin HCl 0.4 MG DAILY 02/13 1000 AC 02/13 PO [address] [place] 1 PUF DAILY 02/13 1022 AC 02/14 INH 0910 Results Last 48 Hrs of Labs/Mics: Laboratory Tests 02/15/16 0530: Anion Gap 10, Estimated GFR 54 L, BUN/Creatinine Ratio 33.8 H, CBC w Diff NO MAN DIFF REQ, RBC 3.67 L, MCV 80.3, MCH 26.2 L, RDW 18.2 H, MPV 8.0, Gran % 94.2 H, Lymphocytes % 2.1 L, Monocytes % 3.6, Eosinophils % 0, Basophils % 0.1 , Absolute Granulocytes 19.5 H, Absolute Lymphocytes 0.4 L, Absolute Monocytes 0.7 H, Absolute Eosinophils 0, Absolute Basophils 0, PUBS MCHC 32.7 L 02/14/16 0535: Anion Gap 11, Estimated GFR > 60, BUN/Creatinine Ratio 23.6, Troponin I 0.08, CBC w Diff NO MAN DIFF REQ, RBC 3.66 L, MCV 79.7 L, MCH 27.0, RDW 17.3 H, MPV 8.0, Gran % 96.3 H, Lymphocytes % 2.2 L, Monocytes % 1.5 L, Eosinophils % 0, Basophils % 0 L, Absolute Granulocytes 15.6 H, Absolute Lymphocytes 0.4 L, Absolute Monocytes 0.2, Absolute Eosinophils 0, Absolute Basophils 0, PUBS MCHC 33.9 02/14/16 0530: Troponin I Cancelled 02/14/16 0000: Troponin I 0.09, Vitamin B12 343, TSH 0.142 L, Free T4 1.21, Thyroxine (T4) 7.3 02/13/16 1724: Anion Gap 11, Estimated GFR > 60, BUN/Creatinine Ratio 22.7, Glucose 153 H, Calcium 9.3, Total Bilirubin 0.7, AST 51, ALT 77 H, Alkaline Phosphatase 195 H , Troponin I 0.09, Lkw-I-[place] Pept 2420 H, Total Protein 6.9, Albumin 3.4 L, Globulin 3.5, Albumin/Globulin Ratio 1.0 L, PT 14.9 H, INR 1.42 H, APTT 34, D-Dimer 713 H, CBC w Diff NO MAN DIFF REQ, RBC 3.99 L, MCV 80.5, MCH 26.6 L, RDW 17.5 H, MPV 7.6, Gran % 97.5 H, Lymphocytes % 2.1 L, Monocytes % 0.3 L, Eosinophils % 0.1, Basophils % 0 L, Absolute Granulocytes 13.9 H, Absolute Lymphocytes 0.3 L, Absolute Monocytes 0 L, Absolute Eosinophils 0, Absolute Basophils 0, PUBS MCHC 33.1 02/13/16 1650: pH 7.47 H, pCO2 32 L, pO2 71 L, HCO3 23, ABG O2 Sat (Measured) 93.0 L, Carboxyhemoglobin 0.3 L, O2 Concentration % 4L, O2 Delivery Method NC, Phlebotomy Draw Site RIGHT RADIAL Microbiology 02/13 1430 URINE ROUT: Legionella Antigen - COMP 02/13 1430 URINE ROUT: Streptococcus pneumoniae Antigen (M - COMP Recent Imaging Studies: Telemetry tracings were personally reviewed and show sinus rhythm Assessment/Plan Assessment/Plan 1. COPD exacerbation with hypoxia 2. Possible PNA 3. Dyspnea on exertion 4. Pleuritic chest pain 5. Hx CAD/NSTEMI with DAMARI to the LAD in 2014 6. Hx HTN/HLD 7. Neurogenic bladder Patient remains euvolemic and is improving. COPD regimen per pulmonary. Echocardiogram is pending. Continue on daily ASA and statin therapy. He will likely be a candidate for outpatient stress test in the near future. Tom Rapp MD FAC Continue telemetry? No
--- NOTE | 2016-02-15 10:40 | PN- Pulmonary ---
Subjective HPI/Critical Care Issues: pt seen and examined desaturated with exertion feeling much better overall on 4LNC chest pressure subsided no n/v/d/c no dyspnea at rest Objective Current Medications: Current Medications Sig/Darvin Start time Last Medication Dose Route Stop Time Status Admin Acetaminophen 650 MG .STK-MED ONE 02/13 2328 DC PO 02/13 2329 Acetaminophen 650 MG .STK-MED ONE 02/13 1424 DC PO 02/13 1425 Acetaminophen 650 MG Q6P PRN 02/12 2145 AC 02/14 PO 0817 Al Hydroxide/Mg 30 ML Q4-6 PRN PRN 02/13 0415 AC Hydroxide PO Albuterol Sulfate 3 ML Q4P PRN 02/13 1030 AC 02/13 INH 2045 Aspirin Buffered 81 MG DAILY 02/13 1000 AC 02/14 PO 0911 Atorvastatin Calcium 80 MG QPM 02/13 2200 AC 02/13 PO 2107 Azithromycin 500 MG DAILY 02/12 2245 AC 02/14 Sodium Chloride 250 ML IV 0909 Budesonide/ 2 PUF BID 02/13 1022 AC 02/14 Formoterol Fumarate INH 0910 Ceftriaxone Sodium 1,000 MG DAILY 02/13 1014 AC 02/14 IV 0910 Enoxaparin Sodium 40 MG DAILY 02/13 1000 DC 02/14 SC 0910 Fluticasone 2 PUF BID 02/12 2245 DC 02/13 Propionate INH 0923 Heparin Sodium 5,000 UNIT Q8 02/14 0951 AC (Porcine) SC Lactobacillus 1 CAP DAILY 02/13 1000 AC 02/14 Acidophilus PO 0911 Losartan Potassium 25 MG DAILY 02/13 1000 DC 02/14 PO 0911 Melatonin 5 MG AT BEDTIME 02/12 2359 AC 02/13 PO 2107 Methylprednisolone 40 MG Q12 02/14 1000 AC 02/14 IV 0910 Methylprednisolone 40 MG Q8 02/12 2245 DC 02/13 IV 02/13 2300 2107 Nitroglycerin 0.4 MG Q 5 MINUTES X 3 DO.. 02/12 2215 AC 02/13 SL 0026 Omeprazole 40 MG DAILY AC 02/13 0700 AC 02/14 PO 0538 Oxycodone HCl 10 MG Q6P PRN 02/13 1600 AC 02/14 PO 0538 Oxycodone HCl 10 MG Q6 PRN 02/13 1549 DC PO Oxycodone HCl 5 MG Q6 PRN 02/12 2145 DC 02/13 PO 1436 Polyethylene Glycol 17 GM DAILY PRN 02/13 0815 AC 02/13 PO 0923 Pregabalin 50 MG BID 02/12 2207 AC 02/14 PO 0910 Tamsulosin HCl 0.4 MG DAILY 02/13 1000 AC 02/13 PO 0922 Tiotropium [place] 1 PUF DAILY 02/13 1022 AC 02/14 INH 0910 Vital Signs & I&O Last 24 Hrs of Vitals and I&O: Vital Signs Date Time Temp Pulse Resp B/P Pulse O2 O2 Flow FiO2 Ox Delivery Rate 02/14 0911 132/70 02/14 0800 Nasal 4.0L Cannula 02/14 0742 98.3 88 18 132/70 94 Nasal 4.0L Cannula 02/14 0000 Nasal 4.0L Cannula 02/13 2300 98.5 96 20 128/64 92 Nasal 4.0L Cannula 02/13 2046 94 Nasal 4.0L Cannula 02/13 1607 98.1 104 18 132/65 95 Nasal 4.0L Cannula Intake & Output 02/14 1600 02/14 0800 02/14 0000 Intake Total 250 476 Output Total 300 300 Balance -50 176 Intake, IV 10 11 Intake, Oral 240 465 Output, Urine 300 300 Exam Other Physical Findings: General - Alert, awake and oriented HEENT - normocephalic, atraumatic Cardiovascular - S1, S2, systolic murmur Lungs - prolonged end expiratory phase, rare rhonchi Abdomen - soft, bowel sounds positive, no tenderness Extremities - without edema or cyanosis Results Last 24 Hrs of Lab Results: Laboratory Tests 02/15/16 0530: Anion Gap 10, Estimated GFR 54 L, BUN/Creatinine Ratio 33.8 H, CBC w Diff NO MAN DIFF REQ, RBC 3.67 L, MCV 80.3, MCH 26.2 L, RDW 18.2 H, MPV 8.0, Gran % 94.2 H, Lymphocytes % 2.1 L, Monocytes % 3.6, Eosinophils % 0, Basophils % 0.1 , Absolute Granulocytes 19.5 H, Absolute Lymphocytes 0.4 L, Absolute Monocytes 0.7 H, Absolute Eosinophils 0, Absolute Basophils 0, PUBS MCHC 32.7 L Impression/Plan Impression/Plan Impression/Plan: Impression 70 year old man -Hypoxemic respiratory failure, likely acute on chronic secondary to emphysema/ COPD with an exacerbation -infiltrates bilateral apices along with mild leukocytosis not previously seen can be consistent with bilateral community acquire pneumonia -elevated BNP/murmur Plan -cont abx -spo2 >92% -solumedrol 40mg iv q12h - can switch to po prednisone tomorrow 60mg -symbicort 160/4.5 2 puffs BID with rinsing of the mouth -add spiriva 1 capsule (2 puffs) daily -TRC/Nebs -cardiology recommendations appreciated -ECHOcardiogram pending -telemetry monitoring, continous spo2 monitoring -will require outpt pfts -thyroid mass workup per primary team DVT prophylaxis at all times
--- NOTE | 2016-02-15 13:17 | ECHOCARDIOGRAM REPORT ---
BRIANNA KONG Age: 70 : 1945 Gender: M Exam Date: 02/15/2016 11:29 Exam Location: [address] Ht (in): 68 Wt (lb): 214 BSA: 2.19 BP: 132 / 70 Ordering Physician: MAHIN GRAMAJO MD Referring Physician: MAHIN GRAMAJO MD Technologist: Handy Hudson [facility] Room Number: 180-1 Indications: Chest Pain Rhythm: Sinus Technical Quality: Fair FINDINGS Left Ventricle Normal global left ventricular size, wall thickness, systolic function with no obvious regional wall motion abnormalities. Normal left ventricular ejection fraction estimated at 60-65%. Right Ventricle Right ventricle at upper limits of normal. Right Atrium Normal right atrial size. Left Atrium Mild left atrial dilatation. Mitral Valve Moderate mitral annular calcification. Trace to mild mitral regurgitation. Aortic Valve Diffuse thickening (sclerosis) of the aortic valve cusps without reduced excursion. Tricuspid Valve Tricuspid valve is normal in structure and function. Mild-to- moderate tricuspid regurgitation. Right ventricular systolic pressure estimated to be elevated at greater than 60 mmHg. Pulmonic Valve Pulmonic valve not well visualized, grossly normal. Pericardium No pericardial effusion. Great Vessels Normal size aortic root. CONCLUSIONS Normal left ventricular systolic function without segmental abnormalities. Bordeline dilated right ventricle with normal function. Mild to moderate tricuspid regurgitation with calculated severe Pulmonary hypertension. Tutu Lewis M.D. (Electronically Signed) Final Date: 15 February 2016 13:17 MEASUREMENTS (Male / Female) Normal Values 2D ECHO LV Diastolic Diameter PLAX 5.2 cm 4.2 - 5.9 / 3.9 - 5.3 cm LV Systolic Diameter PLAX 3.6 cm 2.1 - 4.0 cm LV Fractional Shortening PLAX 30.8 % 25 - 46 % LV Ejection Fraction 2D Teich 58.0 % IVS Diastolic Thickness 1.0 cm LVPW Diastolic Thickness 1.0 cm LV Relative Wall Thickness 0.4 RV Internal Dim ED PLAX 3.5 cm 1.9 - 3.8 cm LVOT Diameter 2.2 cm Aortic Root Diameter 3.0 cm LA Systolic Diameter LX 4.0 cm 3.0 - 4.0 / 2.7 - 3.8 cm DOPPLER AV Peak Velocity 146.0 cm/s AV Peak Gradient 8.5 mmHg AV Mean Velocity 96.0 cm/s AV Mean Gradient 5.0 mmHg AV Velocity Time Integral 26.5 cm LVOT Peak Velocity 90.2 cm/s LVOT Peak Gradient 3.3 mmHg LVOT Mean Velocity 59.3 cm/s LVOT Mean Gradient 2.0 mmHg LVOT Velocity Time Integral 25.6 cm LVOT Stroke Volume 97.3 cm AV Area Cont Eq vti 3.7 cm AV Area Cont Eq pk 2.3 cm MV Peak Velocity 99.3 cm/s MV Peak Gradient 3.9 mmHg MV Mean Velocity 64.2 cm/s MV Mean Gradient 2.0 mmHg Mitral E Point Velocity 78.0 cm/s Mitral A Point Velocity 94.8 cm/s Mitral E to A Ratio 0.8 MV PHT Velocity 97.7 cm/s MV Deceleration [place] 521.0 cm/s MV Pressure Half Time 56.3 ms MV Area PHT 3.9 cm MV Deceleration Time 246.0 ms TR Peak Velocity 400.0 cm/s TR Peak Gradient 64.0 mmHg Right Atrial Pressure 10.0 mmHg Pulmonary Artery Systolic Pressu 74.0 mmHg Right Ventricular Systolic Press 74.0 mmHg PV Peak Velocity 135.0 cm/s PV Peak Gradient 7.3 mmHg PV Mean Velocity 75.2 cm/s PV Mean Gradient 3.0 mmHg PV Velocity Time Integral 21.2 cm
[2016-02-15 15:56] VITALS: BP 140/70
[2016-02-16 00:12] VITALS: BP 140/70
[2016-02-16 06:10] LABS: ABSOLUTE BASOPHIL COUNT 0 /CUMM (0.0-0.2); ABSOLUTE EOSINOPHIL COUNT 0 /CUMM (0.0-0.7); ABSOLUTE GRANULOCYTE CT 15.2 /CUMM (1.4-6.5); ABSOLUTE LYMPH COUNT 0.4 /CUMM (1.2-3.4); ABSOLUTE MONOCYTE COUNT 0.5 /CUMM (0.10-0.60); BASOPHIL % 0 % (0.0-2.0); EOSINOPHIL % 0 % (0-5); GRANULOCYTE % 94.7 % (42.2-75.2); HEMATOCRIT 30.3 % (42-52); MEAN CORPUSCULAR HGB 26.3 PG (27.0-31.0); MEAN CORPUSCULAR HGB CONC 32.5 G/DL (33.0-37.0); MEAN CORPUSCULAR VOLUME 80.7 FL (80.0-94.0); MEAN PLATELET VOLUME 8.2 FL (7.4-10.4); PLATELET COUNT 309 /CUMM (130-400); RBC DISTRIBUTION WIDTH 17.9 % (11.5-14.5); RED BLOOD CELL CT 3.75 /CUMM (4.70-6.10)
--- NOTE | 2016-02-16 07:45 | PN- Housestaff ---
AVIS GILL 02/16/16 0745: Subjective Follow-up For: Acute on chronic COPD exacerbation with hypoxemic respiratory failure Possible pneumonia Pleuritic chest pain- resolved Complaints: pain scale (0-10) Tele-Events Since Last Visit: Normal sinus rhythm Sinus tachycardia Rate 90-100 No acute events noticed on cardiac monitor technician. Subjective: Patient was seen and examined this morning. He is alert, awake and oriented to time place and person. No other acute events reported overnight. He denied any chest pain, palpitations, headache, dizziness or lightheadedness. He did report shortness of breath on exertion, requiring high amount of oxygen. He does complain cough associated with yellow colored sputum production. He denied any fever or chills, abdominal pain, change in bladder or bowel habits. Vitals were stable. He is afebrile, pulse 80, respiratory rate 20, blood pressure 140/70, saturating at 93% on 4 L nasal cannula. He desaturated to 75% after using restroom this morning. Review of Systems Constitutional: Denies: see HPI. Objective Last 24 Hrs of Vital Signs/I&O Vital Signs Date Time Temp Pulse Resp B/P Pulse O2 O2 Flow FiO2 Ox Delivery Rate 02/15 0842 97.4 96 20 152/68 93 Nasal Cannula 02/15 0833 97.7 82 20 140/70 93 Nasal 4.0L Cannula 02/15 0012 97.8 80 20 140/70 93 Nasal 4.0L Cannula 02/15 0000 Nasal 4.0L Cannula 02/14 1600 93 Nasal 4.0L Cannula 02/14 1556 98.3 97 20 140/70 94 Nasal 4.0L Cannula 02/14 1440 95 Nasal 4.0L Cannula 02/14 0911 132/70 Intake & Output 02/15 1600 02/15 0800 02/15 0000 Intake Total 500 360 Output Total 950 925 Balance -450 -565 Intake, IV 10 Intake, Oral 500 350 Number 1 Bowel Movements Output, Urine 950 925 Physical Exam General Appearance: Alert, Oriented X3, Cooperative, No Acute Distress Skin: No Rashes, No Significant Lesion HEENT: Atraumatic, Mucous Membr. moist/pink Neck: Supple, No JVD Lymphatic: Cervical nl Cardiovascular: Regular Rate, Normal S1, Normal S2, No Murmurs Lungs: dec air entry Abdomen: Normal Bowel Sounds, Soft, No Tenderness Extremities: No Clubbing, No Cyanosis, No Edema Vascular: Normal Pulses Current Medications: Current Medications Sig/Darvin Start time Last Medication Dose Route Stop Time Status Admin Acetaminophen 650 MG Q6P PRN 02/12 2145 AC 02/15 PO 0613 Al Hydroxide/Mg 30 ML Q4-6 PRN PRN 02/13 0415 AC Hydroxide PO Albuterol Sulfate 3 ML Q4P PRN 02/13 1030 AC 02/13 INH 2045 Aspirin Buffered 81 MG DAILY 02/13 1000 AC 02/14 PO 0911 Atorvastatin Calcium 80 MG QPM 02/13 2200 AC 02/14 PO 2150 Azithromycin 500 MG DAILY 02/12 2245 AC 02/14 Sodium Chloride 250 ML IV 0909 Budesonide/ 2 PUF BID 02/13 1022 AC 02/14 Formoterol Fumarate INH 2152 Ceftriaxone Sodium 1,000 MG DAILY 02/13 1014 AC 02/14 IV 0910 Enoxaparin Sodium 40 MG DAILY 02/13 1000 DC 02/14 SC 0910 Heparin Sodium 5,000 UNIT Q8 02/14 0951 AC 02/15 (Porcine) SC 0611 Lactobacillus 1 CAP DAILY 02/13 1000 AC 02/14 Acidophilus PO 0911 Losartan Potassium 25 MG DAILY 02/13 1000 DC 02/14 PO 0911 Melatonin 5 MG AT BEDTIME 02/12 2359 AC 02/14 PO 2150 Methylprednisolone 40 MG Q12 02/14 1000 DC 02/14 IV 02/14 2300 2150 Nitroglycerin 0.4 MG Q 5 MINUTES X 3 DO.. 02/12 2215 AC 02/13 SL 0026 Omeprazole 40 MG DAILY AC 02/13 0700 AC 02/15 PO 0611 Oxycodone HCl 10 MG Q6P PRN 02/13 1600 AC 02/15 PO 0613 Polyethylene Glycol 17 GM DAILY PRN 02/13 0815 AC 02/15 PO 0610 Prednisone 60 MG DAILY 02/15 1000 AC PO Pregabalin 50 MG BID 02/12 2207 AC 02/14 PO 2150 Sodium Chloride 1,000 ML Q13H 02/15 0800 AC IV 02/15 2059 Tamsulosin HCl 0.4 MG DAILY 02/13 1000 DC 02/13 PO 0922 Tiotropium [place] 1 PUF DAILY 02/15 1000 AC INH Tiotropium [place] 1 PUF DAILY 02/13 1022 DC 02/14 INH 0910 Last 24 Hrs of Lab/Pantera Results Last 24 Hrs of Labs/Mics: Laboratory Tests 02/16/16 0530: Anion Gap 11, Estimated GFR 60, BUN/Creatinine Ratio 33.3 H, CBC w Diff NO MAN DIFF REQ, RBC 3.75 L, MCV 80.7, MCH 26.3 L, RDW 17.9 H, MPV 8.2, Gran % 94.7 H, Lymphocytes % 2.3 L, Monocytes % 3.0, Eosinophils % 0, Basophils % 0 L, Absolute Granulocytes 15.2 H, Absolute Lymphocytes 0.4 L, Absolute Monocytes 0.5, Absolute Eosinophils 0, Absolute Basophils 0, PUBS MCHC 32.5 L 02/15/16 1720: Anion Gap 11, Estimated GFR 54 L, BUN/Creatinine Ratio 34.6 H 02/15/16 1250: Urine Color YEL, Urine Clarity HAZY H, Urine pH 6.0, Ur Specific [place] 1.025, Urine Protein 30 H, Urine Ketones NEG, Urine Nitrite NEG, Urine Bilirubin NEG, Urine Urobilinogen 0.2, Ur Leukocyte Esterase SMALL H, Ur Microscopic SEDIMENT EXAMINED, Urine RBC 1-3, Urine WBC 25-50 H, Ur Epithelial Cells FEW, Granular Casts 1-3 H, Urine Hemoglobin TRACE-INTACT H, Urine Glucose NEG 02/15/16 1250: Ur Random Creatinine 56.8, Ur Random Sodium 49, Ur Random Potassium 47.5, Fraction Sodium Excret 0.8 Assessment/Plan Assessment: Patient is a 70-year-old gentleman with past medical history significant for COPD(smoked cigars for almost 20 years)/questionable interstitial lung disease, hypertension, hyperlipidemia, OK status post cardiac stent placed in 2014, chronic back pain, ankle fracture, septic shock, dysfunctional (neurogenic) bladder status post self-catheterization, urinary retention, recurrent UTI, renal stones status post multiple lithotripsy was sent in to the ED from Dr. Moe office for the evaluation of shortness of breath. In the office patient was found to be in respiratory distress, desaturated and was sent to the ER for further evaluation. ofnote, the patient was recently admitted in [facility] due to acute pyelonephritis and sepsis was discharged home on 12/22/2015. Vitals on admission temperature 96.9, pulse 110, respiratory rate 21, blood pressure 119/74, first on 7 L , down to 4 L of oxygen,saturating more than 92%. labs- Leukocytosis 14.2 without any bands, H&H low at 10.6/32.5 with MCV of 80.5. ABG done in the ED showed a pH of 7.47 with PCO2 of 30, D dimer elevated at 713 elevated proBNP 2420. EKG: Sinus tachycardia heart rate in 100s, with multiple PVCs, left fascicular block. Chest x-ray Pulmonary hypoinflation. Minimal dependent bibasilar atelectasis. Otherwise, no acute pulmonary process. Problem list 1. Acute COPD exacerbation/pneumonia 2. Acute hypoxemic respiratory failure 3. Hypertension 4. Hyperlipidemia 5. Coronary artery disease 6. Chronic back pain 7. Neurogenic bladder 8. Urinary retention 9. Recurrent renal stones and recurrent UTIs Acute COPD exacerbation/pneumonia patient smoked cigars for almost 20 years, has been diagnosed with emphysema ( COPD). 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 Has never went for pulmonary function tests before. Presented with worsening shortness of breath for couple of weeks. Associated with cough and white colored sputum production. He was sent to Dr. Moe's office by primary care doctor where he was found to be desaturating. He was requiring high amounts of oxygen in the emergency room. Of note patient is not on home oxygen. Admitted for acute COPD exacerbation/pneumonia * Admitted to telemetry floor for continuous monitoring * Monitor vitals every shift * Maintain oxygen saturations above 90% * Provide supplemental oxygen * Patient is saturating at 94% on 4 L oxygen * WBC count elevated on admission , came down to 16 from 20 With no bands * CAT scan chest ruled out pulmonary embolism but revealed small bilateral apical infiltrates suggestive of pneumonia * On antibiotics IV ceftriaxone and azithromycin day3. * on oral prednisone 60mg today * Urine streptococcal antigen and urine Legionella antigen-negative * Follow-up sputum cultures * Follow-up blood culture * Total respiratory care * Started Symbicort and Spiriva * Continue albuterol * Robotic Machine Operator on board Ruled out ACS Patient complains of on and off chest pain. Ruled out pulmonary embolism Serial EKGs and troponins negative Ruled out acute coronary syndrome Emergency Services Dispatcher on board echocardiogram- Normal left ventricular systolic function without segmental abnormalities. Bordeline dilated right ventricle with normal function. Mild to moderate tricuspid regurgitation with calculated severe Pulmonary hypertension. Acute hypoxic respiratory failure Patient was diagnosed with COPD-emphysema. Not on home oxygen. However patient started having shortness of breath for 3-4 weeks. Desaturated to 80s on 4 L oxygen. Requiring high amount of oxygen to maintain above 90%. * Provide supplemental oxygen. History of coronary artery disease (OK 2014 status post cardiac cath and stent placement) * Continue home medications including aspirin, atorvastatin Hypertension losartan on hold as creatinine is 1.3.. getting gentle iv hydration- NS 1bag. Hyperlipidemia continue statins History of neurogenic bladder on straight cath protocol * Continue straight cath protocol in the hospital History of chronic back pain with neuropathy * Continue home dose of Lyrica * continue oxycodone Mild to moderate pain controlled with Tylenol and oxycodone. DVT prophylaxis subcutaneous heparin Patient is full code. regular diet Problem List: 1. Chronic back pain 2. Hypoxia 3. COPD (chronic obstructive pulmonary disease) 4. Pulmonary hypertension Pain Ratin Pain Location: none Pain Goal: Remain pain free Pain Plan: tylinol Tomorrow's Labs & Rationales: CBC in the setting of leukocytosis BEP in the setting of rising creatinine MICHAEL ANTOINE 02/16/16 1326: Attending MD Review Statement Attending Statement Attending MD Statement: examined this patient, discuss w/resident/PA/BLADE BALANCER, agreed w/resident/PA/BLADE BALANCER, reviewed EMR data (avail), discussed with nursing, discussed with case mgmt Attending Assessment/Plan: Patient seen and examined at bedside. Patient currently requiring 3-4 L of oxygen by nasal cannula. Becomes hypoxic with ambulation or any exertional activity. Patient for his COPD exacerbation is being followed by pulmonology. Was switched to by mouth prednisone 60 mg daily. For his pneumonia patient is currently on ceftriaxone and Zithromax day 3. Echo done showed elevated right heart pressures with severe pulmonary hypertension with pressure of 74. The likely cause of pulmonary hypertension is COPD. Patient was not on home oxygen prior to this admission and may benefit from oxygen at home. This may also help with his pulmonary hypertension and patient should get a repeat echo done in few months to reevaluate the pulmonary hypertension. Patient was also found to have hyperkalemia with potassium of 5.2. His losartan was held and we switched the patient to low potassium diet. Patient's care plan was discussed with patient and his significant other at bedside.
--- NOTE | 2016-02-16 08:00 | NUR ---
PATIENT REPORTS SOB FOLLOWING INDEP AM CARE IN BATHROOM; PATIENT ON 4L N/C AT THE TIME; SPO2 ON 4L N/C 72%; RECOVERED WITH REST TO 92% OVER A FEW MINUTES; DR. DEBBIE GILL NOTIFIED
[2016-02-16 08:33] VITALS: BP 140/70
[2016-02-16 08:42] VITALS: BP 152/68
--- NOTE | 2016-02-16 11:48 | PN- Cardiology ---
Subjective Subjective: Symptoms grossly unchanged today, has dyspnea on exertion but minimal symptoms at rest. Denies any recurrent chest pain. Objective Vital Signs and I&Os Vital Signs Date Time Temp Pulse Resp B/P Pulse O2 O2 Flow FiO2 Ox Delivery Rate 02/15 1044 94 Nasal 3.0L Cannula 02/15 0842 97.4 96 20 152/68 93 Nasal Cannula 02/15 0833 97.7 82 20 140/70 93 Nasal 4.0L Cannula 02/15 0800 93 Nasal 4.0L Cannula 02/15 0012 97.8 80 20 140/70 93 Nasal 4.0L Cannula 02/15 0000 Nasal 4.0L Cannula 02/14 1600 93 Nasal 4.0L Cannula 02/14 1556 98.3 97 20 140/70 94 Nasal 4.0L Cannula 02/14 1440 95 Nasal 4.0L Cannula Intake & Output 02/15 1600 02/15 0800 02/15 0000 02/14 1600 02/14 0800 02/14 0000 Intake Total 886 822 0703 250 476 Output Total 950 925 400 300 300 Balance -450 -565 600 -50 176 Intake, IV 10 280 10 11 Intake, Oral 500 350 720 240 465 Number 1 Bowel Movements Output, Urine 950 925 400 300 300 Physical Exam: General: no apparent distress. Alert. On NC O2. Eyes: No obvious scleral icterus. HEENT: No jugular venous distention or abnormal jugular venous pulsations. Cardiovascular: Normal intensity S1/S2. Regular. PMI not displaced. Respiratory: Mildly decreased air entry bilaterally. Abdomen: soft, no rebound tenderness Musculoskeletal: No cyanosis noted, no edema Skin: Warm Neurologic: No gross focal deficits noted. Current Medications: Current Medications Sig/Darvin Start time Last Medication Dose Route Stop Time Status Admin Acetaminophen 650 MG Q6P PRN 02/12 2145 AC 02/15 PO 0613 Al Hydroxide/Mg 30 ML Q4-6 PRN PRN 02/13 0415 AC Hydroxide PO Albuterol Sulfate 3 ML Q4P PRN 02/13 1030 AC 02/13 INH 2045 Aspirin Buffered 81 MG DAILY 02/13 1000 AC 02/15 PO 0943 Atorvastatin Calcium 80 MG QPM 02/13 2200 AC 02/14 PO 2150 Azithromycin 500 MG DAILY 02/12 2245 AC 02/15 Sodium Chloride 250 ML IV 1026 Budesonide/ 2 PUF BID 02/13 1022 AC 02/15 Formoterol Fumarate INH 0946 Ceftriaxone Sodium 1,000 MG DAILY 02/13 1014 AC 02/15 IV 1025 Heparin Sodium 5,000 UNIT Q8 02/14 0951 AC 02/15 (Porcine) SC 0611 Lactobacillus 1 CAP DAILY 02/13 1000 AC 02/15 Acidophilus PO 0949 Melatonin 5 MG AT BEDTIME 02/12 2359 AC 02/14 PO 2150 Methylprednisolone 40 MG Q12 02/14 1000 DC 02/14 IV 02/14 2300 2150 Nitroglycerin 0.4 MG Q 5 MINUTES X 3 DO.. 02/12 2215 AC 02/13 SL 0026 Omeprazole 40 MG DAILY AC 02/13 0700 AC 02/15 PO 0611 Oxycodone HCl 10 MG Q6P PRN 02/13 1600 AC 02/15 PO 0613 Polyethylene Glycol 17 GM DAILY PRN 02/13 0815 AC 02/15 PO 0610 Prednisone 60 MG DAILY 02/15 1000 AC 02/15 PO 0944 Pregabalin 50 MG BID 02/12 2207 AC 02/15 PO 0945 Sodium Chloride 1,000 ML Q13H 02/15 0800 AC 02/15 IV 02/15 205 0958 Tiotropium [place] 1 PUF DAILY 02/15 1000 AC 02/15 INH 0950 Tiotropium [place] 1 PUF DAILY 02/13 1022 DC 02/14 INH 0910 Results Last 48 Hrs of Labs/Mics: Laboratory Tests 02/16/16 0530: Anion Gap 11, Estimated GFR 60, BUN/Creatinine Ratio 33.3 H, CBC w Diff NO MAN DIFF REQ, RBC 3.75 L, MCV 80.7, MCH 26.3 L, RDW 17.9 H, MPV 8.2, Gran % 94.7 H, Lymphocytes % 2.3 L, Monocytes % 3.0, Eosinophils % 0, Basophils % 0 L, Absolute Granulocytes 15.2 H, Absolute Lymphocytes 0.4 L, Absolute Monocytes 0.5, Absolute Eosinophils 0, Absolute Basophils 0, PUBS MCHC 32.5 L 02/15/16 1720: Anion Gap 11, Estimated GFR 54 L, BUN/Creatinine Ratio 34.6 H 02/15/16 1250: Urine Color YEL, Urine Clarity HAZY H, Urine pH 6.0, Ur Specific [place] 1.025, Urine Protein 30 H, Urine Ketones NEG, Urine Nitrite NEG, Urine Bilirubin NEG, Urine Urobilinogen 0.2, Ur Leukocyte Esterase SMALL H, Ur Microscopic SEDIMENT EXAMINED, Urine RBC 1-3, Urine WBC 25-50 H, Ur Epithelial Cells FEW, Granular Casts 1-3 H, Urine Hemoglobin TRACE-INTACT H, Urine Glucose NEG 02/15/16 1250: Ur Random Creatinine 56.8, Ur Random Sodium 49, Ur Random Potassium 47.5, Fraction Sodium Excret 0.8 02/15/16 0530: Anion Gap 10, Estimated GFR 54 L, BUN/Creatinine Ratio 33.8 H, CBC w Diff NO MAN DIFF REQ, RBC 3.67 L, MCV 80.3, MCH 26.2 L, RDW 18.2 H, MPV 8.0, Gran % 94.2 H, Lymphocytes % 2.1 L, Monocytes % 3.6, Eosinophils % 0, Basophils % 0.1 , Absolute Granulocytes 19.5 H, Absolute Lymphocytes 0.4 L, Absolute Monocytes 0.7 H, Absolute Eosinophils 0, Absolute Basophils 0, PUBS MCHC 32.7 L Microbiology 02/13 1430 URINE ROUT: Legionella Antigen - COMP 02/13 1430 URINE ROUT: Streptococcus pneumoniae Antigen (M - COMP 02/13 1245 LOWER RESP: Respiratory Culture - COMP 02/13 1245 LOWER RESP: Gram Stain - COMP Recent Imaging Studies: Telemetry tracings were personally reviewed and show sinus rhythm Echocardiogram Normal left ventricular systolic function without segmental abnormalities. Bordeline dilated right ventricle with normal function. Mild to moderate tricuspid regurgitation with calculated severe Pulmonary hypertension. Assessment/Plan Assessment/Plan 1. COPD exacerbation with hypoxia 2. Possible PNA 3. Dyspnea on exertion 4. Pleuritic chest pain 5. Hx CAD/NSTEMI with DAMARI to the LAD in 2014 6. Hx HTN/HLD 7. Neurogenic bladder 8. Pulmonary hypertension Patient remains euvolemic. COPD regimen per pulmonary. Echo shows normal ventricular function with severe pulmonary hypertension. Continue on daily ASA and statin therapy. He will likely be a candidate for outpatient stress test in the near future. Can hold off on restarting beta stuart given the significant COPD. If BP is running above goal would start Norvasc 5 g by mouth daily. Tom Rapp MD [facility] Continue telemetry? No
--- NOTE | 2016-02-16 12:38 | PN- Pulmonary ---
Subjective HPI/Critical Care Issues: Patient seen and examined. With ambulation he desaturates to the 70s. With 4 L of oxygen at rest he maintains an oxygen saturation in the 90s. Overall he feels significantly better with oxygen and his chest pressure has subsided. There are no fevers or chills. His white blood cell count is 16 from 20.7 which maybe secondary to pneumonia vs steroid induced leukocytosis. No n/v/d/c. Objective Current Medications: Current Medications Sig/Darvin Start time Last Medication Dose Route Stop Time Status Admin Acetaminophen 650 MG Q6P PRN 02/12 2145 AC 02/15 PO 0613 Al Hydroxide/Mg 30 ML Q4-6 PRN PRN 02/13 0415 AC Hydroxide PO Albuterol Sulfate 3 ML Q4P PRN 02/13 1030 AC 02/13 INH 2045 Aspirin Buffered 81 MG DAILY 02/13 1000 AC 02/15 PO 0943 Atorvastatin Calcium 80 MG QPM 02/13 2200 AC 02/14 PO 2150 Azithromycin 500 MG DAILY 02/12 2245 AC 02/15 Sodium Chloride 250 ML IV 1026 Budesonide/ 2 PUF BID 02/13 1022 AC 02/15 Formoterol Fumarate INH 0946 Ceftriaxone Sodium 1,000 MG DAILY 02/13 1014 AC 02/15 IV 1025 Heparin Sodium 5,000 UNIT Q8 02/14 0951 AC 02/15 (Porcine) SC 0611 Lactobacillus 1 CAP DAILY 02/13 1000 AC 02/15 Acidophilus PO 0949 Melatonin 5 MG AT BEDTIME 02/12 2359 AC 02/14 PO 2150 Methylprednisolone 40 MG Q12 02/14 1000 DC 02/14 IV 02/14 2300 2150 Nitroglycerin 0.4 MG Q 5 MINUTES X 3 DO.. 02/12 2215 AC 02/13 SL 0026 Omeprazole 40 MG DAILY AC 02/13 0700 AC 02/15 PO 0611 Oxycodone HCl 10 MG Q6P PRN 02/13 1600 AC 02/15 PO 1235 Polyethylene Glycol 17 GM DAILY PRN 02/13 0815 AC 02/15 PO 0610 Prednisone 60 MG DAILY 02/15 1000 AC 02/15 PO 0944 Pregabalin 50 MG BID 02/12 2207 AC 02/15 PO 0945 Sodium Chloride 1,000 ML Q13H 02/15 0800 AC 02/15 IV 02/15 205 0958 Tiotropium [place] 1 PUF DAILY 02/15 1000 AC 02/15 INH 0950 Vital Signs & I&O Last 24 Hrs of Vitals and I&O: Vital Signs Date Time Temp Pulse Resp B/P Pulse O2 O2 Flow FiO2 Ox Delivery Rate 02/15 1134 Nasal 4.0L Cannula 02/15 1044 94 Nasal 3.0L Cannula 02/15 0842 97.4 96 20 152/68 93 Nasal Cannula 02/15 0833 97.7 82 20 140/70 93 Nasal 4.0L Cannula 02/15 0800 93 Nasal 4.0L Cannula 02/15 0012 97.8 80 20 140/70 93 Nasal 4.0L Cannula 02/15 0000 Nasal 4.0L Cannula 02/14 1600 93 Nasal 4.0L Cannula 02/14 1556 98.3 97 20 140/70 94 Nasal 4.0L Cannula 02/14 1440 95 Nasal 4.0L Cannula Intake & Output 02/15 1600 02/15 0800 02/15 0000 Intake Total 500 360 Output Total 950 925 Balance -450 -565 Intake, IV 10 Intake, Oral 500 350 Number 1 Bowel Movements Output, Urine 950 925 Exam Other Physical Findings: General - Alert, awake and oriented HEENT - normocephalic, atraumatic Cardiovascular - S1, S2, systolic murmur Lungs - prolonged end expiratory phase, rare rhonchi Abdomen - soft, bowel sounds positive, no tenderness Extremities - without edema or cyanosis Results Last 24 Hrs of Lab Results: Laboratory Tests 02/16/16 0530: Anion Gap 11, Estimated GFR 60, BUN/Creatinine Ratio 33.3 H, CBC w Diff NO MAN DIFF REQ, RBC 3.75 L, MCV 80.7, MCH 26.3 L, RDW 17.9 H, MPV 8.2, Gran % 94.7 H, Lymphocytes % 2.3 L, Monocytes % 3.0, Eosinophils % 0, Basophils % 0 L, Absolute Granulocytes 15.2 H, Absolute Lymphocytes 0.4 L, Absolute Monocytes 0.5, Absolute Eosinophils 0, Absolute Basophils 0, PUBS MCHC 32.5 L 02/15/16 1720: Anion Gap 11, Estimated GFR 54 L, BUN/Creatinine Ratio 34.6 H 02/15/16 1250: Urine Color YEL, Urine Clarity HAZY H, Urine pH 6.0, Ur Specific [place] 1.025, Urine Protein 30 H, Urine Ketones NEG, Urine Nitrite NEG, Urine Bilirubin NEG, Urine Urobilinogen 0.2, Ur Leukocyte Esterase SMALL H, Ur Microscopic SEDIMENT EXAMINED, Urine RBC 1-3, Urine WBC 25-50 H, Ur Epithelial Cells FEW, Granular Casts 1-3 H, Urine Hemoglobin TRACE-INTACT H, Urine Glucose NEG 02/15/16 1250: Ur Random Creatinine 56.8, Ur Random Sodium 49, Ur Random Potassium 47.5, Fraction Sodium Excret 0.8 Impression/Plan Impression/Plan Impression/Plan: Impression 70 year old man - Hypoxemic respiratory failure, likely acute on chronic secondary to emphysema/ COPD with an exacerbation - Infiltrates bilateral apices along with mild leukocytosis not previously seen can be consistent with bilateral community acquire pneumonia - Pulmonary HTN - Thyroid mass - to be addressed per primary team Plan - cont abx course (7 days) - spo2 >92% - prednisone taper by 10mg every 2 days until finished - symbicort 160/4.5 2 puffs BID with rinsing of the mouth - Spiriva 1 capsule (2 puffs) daily - TRC/Nebs - cardiology recommendations appreciated - telemetry monitoring, continous spo2 monitoring - will require outpt pfts - thyroid mass workup per primary team DVT prophylaxis at all times Patient amenable to rehab if need be
[2016-02-16 16:11] VITALS: BP 160/70
--- NOTE | 2016-02-16 21:12 | Patient Discharge Instructions ---
Discharge Instructions General Discharge Information You were seen/treated for: Acute COPD exacerbation Acute hypoxic respiratory failure Pneumonia Ruled out acute coronary syndrome You had these procedures: None Watch for these problems: Worsening shortness of breath Cough Sputum production Chest pain Special Instructions: Follow-up with your primary care doctor in 1 week. Follow-up with your boiler welder in 1 week. Follow-up with your lung doctor in one week. Thyroid mass workup as outpatient, Enlarged right lobe of thyroid with small punctate calcifications. -follow-up with your primary care doctor --METOPROLOL WAS STOPPED BECAUSE OF BRONCHOSPASM. Diet Recommended Diet: Heart Healthy Activity Full Activity/No Limits: Yes Acute Coronary Syndrome Inclusion Criteria At DC or during hospital stay patient has or had the following: ACS DIAGNOSIS No Discharge Core Measures Meds if any: Prescribed or Continued at Discharge Meds if any: NOT Prescribed or Continued at Discharge Congestive Heart Failure Inclusion Criteria At DC or during hospital stay patient has or had the following: CHF DIAGNOSIS No Discharge Core Measures Meds if any: Prescribed or Continued at Discharge Meds if any: NOT Prescribed or Continued at Discharge Cerebrovascular accident Inclusion Criteria At DC or during hospital stay patient has or had the following: CVA/TIA Diagnosis No Discharge Core Measures Meds if any: Prescribed or Continued at Discharge Meds if any: NOT Prescribed or Continued at Discharge Venous thromboembolism Inclusion Criteria VTE Diagnosis No VTE Type NONE VTE Confirmed by (Test) CT CHEST ANGIOGRAM Discharge Core Measures - Per Current guidelines, there needs to be overlap - treatment for the first 5 days of Warfarin therapy. - If discharged on Warfarin prior to 5 days of - overlap therapy, the patient will need to be - assessed for post discharge needs including - *Post discharge parental anticoagulation - *Warfarin and/or parental anticoagulation education - *Follow up date to check INR post discharge At least 5 days overlap therapy as Inpatient No Meds if any: Prescribed or Continued at Discharge Note: Overlap Therapy is Warfarin and Anticoagulant Meds if any: NOT Prescribed or Continued at Discharge
[2016-02-16 22:48] VITALS: BP 146/72
[2016-02-17 05:02] LABS: ABSOLUTE BASOPHIL COUNT 0 /CUMM (0.0-0.2); ABSOLUTE EOSINOPHIL COUNT 0 /CUMM (0.0-0.7); ABSOLUTE GRANULOCYTE CT 10.7 /CUMM (1.4-6.5); ABSOLUTE LYMPH COUNT 0.9 /CUMM (1.2-3.4); ABSOLUTE MONOCYTE COUNT 1.1 /CUMM (0.10-0.60); BASOPHIL % 0.2 % (0.0-2.0); EOSINOPHIL % 0.1 % (0-5); GRANULOCYTE % 83.8 % (42.2-75.2); HEMATOCRIT 29.3 % (42-52); MEAN CORPUSCULAR HGB 26.1 PG (27.0-31.0); MEAN CORPUSCULAR HGB CONC 32.5 G/DL (33.0-37.0); MEAN CORPUSCULAR VOLUME 80.2 FL (80.0-94.0); PLATELET COUNT 287 /CUMM (130-400); RED BLOOD CELL CT 3.65 /CUMM (4.70-6.10); WHITE BLOOD CELL COUNT 12.8 /CUMM (4.8-10.8)
[2016-02-17 08:00] VITALS: BP 148/70
--- NOTE | 2016-02-17 08:21 | PN- Housestaff ---
JOHNNIE MILLIGAN,[facility] 02/17/16 0820: Subjective Follow-up For: Acute on chronic COPD exacerbation with hypoxemic respiratory failure Possible pneumonia Pleuritic chest pain- resolved Tele-Events Since Last Visit: SR 68-86 Subjective: Mr. Perez was seen and examined this morning. He is resting comfortably in bed with his at bedside. Patient reports no issues overnight. He continues to express cough with minimal sputum production. Sputum is brown in color and patient states may have contained a speck of blood. Patient continues to be on supplemental oxygen 4 L by nasal cannula. Patient states that he slept well. Patient reports a good appetite. Patient denies any fever, chills, nausea, vomiting. Patient is eager to be discharged soon. Review of Systems Constitutional: Reports: see HPI. Objective Last 24 Hrs of Vital Signs/I&O Vital Signs Date Time Temp Pulse Resp B/P Pulse O2 O2 Flow FiO2 Ox Delivery Rate 02/16 1641 98.1 101 20 146/82 92 Nasal 4.0L Cannula 02/16 0839 95 Nasal 4.0L Cannula 02/16 0800 93 Nasal 4.0L Cannula 02/16 0800 98.4 82 22 148/70 94 Nasal 4.0L Cannula 02/16 0000 94 Nasal 4.0L Cannula 02/15 2248 98.7 90 22 146/72 94 Intake & Output 02/16 1600 02/16 0800 02/16 0000 Intake Total 1020 680 480 Output Total 900 600 500 Balance 120 80 -20 Intake, IV 200 Intake, Oral 1020 480 480 Number 1 1 Bowel Movements Output, Urine 900 600 500 Patient 97.069 kg Weight Physical Exam General Appearance: Alert, Oriented X3, Cooperative Cardiovascular: Regular Rate, Normal S1, Normal S2 Lungs: Clear to Auscultation Abdomen: Normal Bowel Sounds, Soft, No Tenderness Neurological: Normal Gait, Normal Speech Extremities: Edema 2+ Current Medications: Current Medications Sig/Darvin Start time Last Medication Dose Route Stop Time Status Admin Acetaminophen 650 MG .STK-MED ONE 02/16 530 DC PO 02/16 531 Acetaminophen 650 MG Q6P PRN 02/12 2145 AC 02/16 PO 1420 Al Hydroxide/Mg 30 ML Q4-6 PRN PRN 02/13 0415 AC Hydroxide PO Albuterol Sulfate 2 PUF Q4P PRN 02/16 1030 AC INH Albuterol Sulfate 3 ML Q4P PRN 02/13 1030 DC 02/13 INH 2045 Aspirin Buffered 81 MG DAILY 02/13 1000 AC 02/16 PO 0930 Atorvastatin Calcium 80 MG QPM 02/13 2200 AC 02/15 PO 2132 Azithromycin 500 MG DAILY 02/12 2245 AC 02/16 Sodium Chloride 250 ML IV 02/18 230 0935 Budesonide/ 2 PUF BID 02/13 1022 AC 02/16 Formoterol Fumarate INH 0933 Ceftriaxone Sodium 1,000 MG DAILY 02/13 1014 AC 02/16 IV 02/19 2300 0934 Heparin Sodium 5,000 UNIT Q8 02/14 0951 AC 02/16 (Porcine) SC 1419 Lactobacillus 1 CAP DAILY 02/13 1000 AC 02/16 Acidophilus PO 0932 Melatonin 5 MG AT BEDTIME 02/12 2359 AC 02/14 PO 2150 Nitroglycerin 0.4 MG Q 5 MINUTES X 3 DO.. 02/12 2215 AC 02/13 SL 0026 Omeprazole 40 MG DAILY AC 02/13 0700 AC 02/16 PO 0535 Oxycodone HCl 10 MG Q6P PRN 02/13 1600 AC 02/16 PO 1528 Polyethylene Glycol 17 GM DAILY PRN 02/13 0815 AC 02/15 PO 0610 Prednisone 10 MG DAILY 02/25 1000 AC PO 02/26 2300 Prednisone 20 MG DAILY 02/23 1000 AC PO 02/24 2300 Prednisone 30 MG DAILY 02/21 1000 AC PO 02/22 2300 Prednisone 40 MG DAILY 02/19 1000 AC PO 02/20 2300 Prednisone 50 MG DAILY 02/17 1000 AC PO 02/18 2300 Prednisone 60 MG DAILY 02/15 1000 AC 02/16 PO 02/16 2300 0931 Pregabalin 50 MG BID 02/12 2207 AC 02/16 PO 0930 Sodium Chloride 1,000 ML Q13H 02/15 0800 DC 02/15 IV 02/15 205 0958 Tiotropium [place] 1 PUF DAILY 02/15 1000 AC 02/16 INH 0933 Last 24 Hrs of Lab/Pantera Results Last 24 Hrs of Labs/Mics: Laboratory Tests 02/17/16 0445: Anion Gap 7, Estimated GFR > 60, BUN/Creatinine Ratio 30.0 H, CBC w Diff NO MAN DIFF REQ, RBC 3.65 L, MCV 80.2, MCH 26.1 L, RDW 18.0 H, MPV 8.0, Gran % 83.8 H, Lymphocytes % 7.1 L, Monocytes % 8.8, Eosinophils % 0.1, Basophils % 0.2, Absolute Granulocytes 10.7 H, Absolute Lymphocytes 0.9 L, Absolute Monocytes 1.1 H, Absolute Eosinophils 0, Absolute Basophils 0, PUBS MCHC 32.5 L Assessment/Plan Assessment: Patient is a 70-year-old gentleman with past medical history significant for COPD(smoked cigars for almost 20 years)/questionable interstitial lung disease, hypertension, hyperlipidemia, AK status post cardiac stent placed in 2014, chronic back pain, ankle fracture, septic shock, dysfunctional (neurogenic) bladder status post self-catheterization, urinary retention, recurrent UTI, renal stones status post multiple lithotripsy was sent in to the ED from Dr. Moe office for the evaluation of shortness of breath. In the office patient was found to be in respiratory distress, desaturated and was sent to the ER for further evaluation. ofnote, the patient was recently admitted in [facility] due to acute pyelonephritis and sepsis was discharged home on 12/22/2015. Vitals on admission temperature 96.9, pulse 110, respiratory rate 21, blood pressure 119/74, first on 7 L , down to 4 L of oxygen,saturating more than 92%. labs- Leukocytosis 14.2 without any bands, H&H low at 10.6/32.5 with MCV of 80.5. ABG done in the ED showed a pH of 7.47 with PCO2 of 30, D dimer elevated at 713 elevated proBNP 2420. EKG: Sinus tachycardia heart rate in 100s, with multiple PVCs, left fascicular block. Chest x-ray Pulmonary hypoinflation. Minimal dependent bibasilar atelectasis. Otherwise, no acute pulmonary process. Problem list 1. Acute COPD exacerbation/pneumonia 2. Acute hypoxemic respiratory failure 3. Hypertension 4. Hyperlipidemia 5. Coronary artery disease 6. Chronic back pain 7. Neurogenic bladder 8. Urinary retention 9. Recurrent renal stones and recurrent UTIs Acute COPD exacerbation/pneumonia patient smoked cigars for almost 20 years, has been diagnosed with emphysema ( COPD). 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 Has never went for pulmonary function tests before. Presented with worsening shortness of breath for couple of weeks. Associated with cough and white colored sputum production. He was sent to Dr. Moe's office by primary care doctor where he was found to be desaturating. He was requiring high amounts of oxygen in the emergency room. Of note patient is not on home oxygen. Admitted for acute COPD exacerbation/pneumonia * Admitted to telemetry floor for continuous monitoring * Monitor vitals every shift * Maintain oxygen saturations above 90% * Provide supplemental oxygen * Patient is saturating at 94% on 4 L oxygen * WBC count elevated on admission , came down to 16 from 20 With no bands * CAT scan chest ruled out pulmonary embolism but revealed small bilateral apical infiltrates suggestive of pneumonia * On antibiotics IV ceftriaxone and azithromycin day 4, patient will need to complete 7 days of antibiotics. * on oral prednisone 60mg today, Patient will be discharged to [facility] on a taper. * Urine streptococcal antigen and urine Legionella antigen-negative * Follow-up sputum cultures * Follow-up blood culture * Total respiratory care * Started Symbicort and Spiriva * Continue albuterol * Electrical And Instrumentation Mechanic on board Ruled out ACS Patient complains of on and off chest pain. Ruled out pulmonary embolism Serial EKGs and troponins negative Ruled out acute coronary syndrome Gate Services Supervisor on board echocardiogram- Normal left ventricular systolic function without segmental abnormalities. [place] dilated right ventricle with normal function. Mild to moderate tricuspid regurgitation with calculated severe Pulmonary hypertension. Acute hypoxic respiratory failure Patient was diagnosed with COPD-emphysema. Not on home oxygen. However patient started having shortness of breath for 3-4 weeks. Desaturated to 80s on 4 L oxygen. Requiring high amount of oxygen to maintain above 90%. * Provide supplemental oxygen. History of coronary artery disease (AK 2015 status post cardiac cath and stent placement) * Continue home medications including aspirin, atorvastatin Hypertension losartan on hold as creatinine is 1.1. Hyperlipidemia continue statins History of neurogenic bladder on straight cath protocol * Continue straight cath protocol in the hospital History of chronic back pain with neuropathy * Continue home dose of Lyrica * continue oxycodone Mild to moderate pain controlled with Tylenol and oxycodone. DVT prophylaxis subcutaneous heparin Patient is full code. regular diet Problem List: 1. Chest pain 2. COPD (chronic obstructive pulmonary disease) 3. Hypoxia Pain Ratin Pain Location: No Pain Pain Goal: Remain pain free Pain Plan: Tylenol PRN Tomorrow's Labs & Rationales: BEP: Monitor Electrolytes and creatinine JOAQUINA MCGRAW MD 02/17/16 1057: Attending MD Review Statement Attending Statement Attending MD Statement: examined this patient, discuss w/resident/PA/LAYOUT OPERATOR, agreed w/resident/PA/LAYOUT OPERATOR, discussed with family, reviewed EMR data (avail), discussed with nursing Attending Assessment/Plan: Patient still feels very short of breath. He is on 4 L and his sat is 94% on 4 L at rest but when he goes to the bathroom it dips down to the 70s. He is being treated with IV antibiotics for a bilateral pneumonia seen on CT scan and he is on by mouth prednisone for a COPD exacerbation. His metoprolol has been on hold because of the worry of bronchospasm and his losartan was on hold because of mild kiersten with hyperkalemia. Will watch his pressure, taper his oxygen and the plan will be likely [place] in a.m. Will discuss with pulmonary.
--- NOTE | 2016-02-17 12:32 | PN- Pulmonary ---
Subjective HPI/Critical Care Issues: The patient is awake and alert. He appears comfortable at rest. His oxygen requirement remains at 4 L nasal cannula. He has an intermittent cough. He is not producing sputum. He denies any chest pain, fever or chills. His shortness of breath has significantly improved overall. His white blood cell count is now down to 12. Objective Current Medications: Current Medications Sig/Darvin Start time Last Medication Dose Route Stop Time Status Admin Acetaminophen 650 MG Q6P PRN 02/12 2145 AC 02/16 PO 0534 Al Hydroxide/Mg 30 ML Q4-6 PRN PRN 02/13 0415 AC Hydroxide PO Albuterol Sulfate 2 PUF Q4P PRN 02/16 1030 AC INH Albuterol Sulfate 3 ML Q4P PRN 02/13 1030 DC 02/13 INH 2045 Aspirin Buffered 81 MG DAILY 02/13 1000 AC 02/16 PO 0930 Atorvastatin Calcium 80 MG QPM 02/13 2200 AC 02/15 PO 2132 Azithromycin 500 MG DAILY 02/12 2245 AC 02/16 Sodium Chloride 250 ML IV 02/18 2300 0935 Budesonide/ 2 PUF BID 02/13 1022 AC 02/16 Formoterol Fumarate INH 0933 Ceftriaxone Sodium 1,000 MG DAILY 02/13 1014 AC 02/16 IV 02/19 2300 0934 Heparin Sodium 5,000 UNIT Q8 02/14 0951 AC 02/16 (Porcine) SC 0534 Lactobacillus 1 CAP DAILY 02/13 1000 AC 02/16 Acidophilus PO 0932 Melatonin 5 MG AT BEDTIME 02/12 2359 AC 02/14 PO 2150 Nitroglycerin 0.4 MG Q 5 MINUTES X 3 DO.. 02/12 2215 AC 02/13 SL 0026 Omeprazole 40 MG DAILY AC 02/13 0700 AC 02/16 PO 0535 Oxycodone HCl 10 MG Q6P PRN 02/13 1600 AC 02/16 PO 0930 Polyethylene Glycol 17 GM DAILY PRN 02/13 0815 AC 02/15 PO 0610 Prednisone 10 MG DAILY 02/25 1000 AC PO 02/26 2300 Prednisone 20 MG DAILY 02/23 1000 AC PO 02/24 2300 Prednisone 30 MG DAILY 02/21 1000 AC PO 02/22 2300 Prednisone 40 MG DAILY 02/19 1000 AC PO 02/20 2300 Prednisone 50 MG DAILY 02/17 1000 AC PO 02/18 2300 Prednisone 60 MG DAILY 02/15 1000 AC 02/16 PO 02/16 2300 0931 Pregabalin 50 MG BID 02/12 2207 AC 02/16 PO 0930 Sodium Chloride 1,000 ML Q13H 02/15 08 DC 02/15 IV 02/15 Tiotropium [place] 1 PUF DAILY 02/15 1000 AC 02/16 INH 0933 Vital Signs & I&O Last 24 Hrs of Vitals and I&O: Vital Signs Date Time Temp Pulse Resp B/P Pulse O2 O2 Flow FiO2 Ox Delivery Rate 02/16 0839 95 Nasal 4.0L Cannula 02/16 08 93 Nasal 4.0L Cannula 02/16 08 98.4 82 22 148/70 94 Nasal 4.0L Cannula 02/16 0000 94 Nasal 4.0L Cannula 02/15 2248 98.7 90 22 146/72 94 02/15 1705 93 Nasal 3.0L Cannula 02/15 1705 92 Nasal 4.0L Cannula 02/15 1611 98.2 93 20 160/70 94 Intake & Output 02/16 1600 02/16 0800 02/16 0000 Intake Total 680 480 Output Total 600 500 Balance 80 -20 Intake, IV 200 Intake, Oral 480 480 Number 1 Bowel Movements Output, Urine 600 500 Exam General Appearance: well developed/nourished, no apparent distress, alert, comfortable Head: atraumatic, normal appearance Neck: supple Respiratory: no respiratory distress, faint wheezing Cardiovascular: regular rate/rhythm, systolic murmur Abdomen: normal bowel sounds, soft, non-tender Extremities: no edema, no cyanosis Skin: intact, normal color, warm/dry Results Last 24 Hrs of Lab Results: Laboratory Tests 02/17/16 0445: Anion Gap 7, Estimated GFR > 60, BUN/Creatinine Ratio 30.0 H, CBC w Diff NO MAN DIFF REQ, RBC 3.65 L, MCV 80.2, MCH 26.1 L, RDW 18.0 H, MPV 8.0, Gran % 83.8 H, Lymphocytes % 7.1 L, Monocytes % 8.8, Eosinophils % 0.1, Basophils % 0.2, Absolute Granulocytes 10.7 H, Absolute Lymphocytes 0.9 L, Absolute Monocytes 1.1 H, Absolute Eosinophils 0, Absolute Basophils 0, PUBS MCHC 32.5 L Last 24 Hrs of Micro Results: Cultures remain negative. Impression/Plan Impression/Plan Impression/Plan: 1. Hypoxemic respiratory failure, likely acute on chronic secondary to COPD exacerbation. 2. Infiltrates bilateral apices along with mild leukocytosis not previously seen can be consistent with bilateral community acquire pneumonia. 3. Pulmonary HTN 4. Thyroid mass - to be addressed per primary team Recommendations: * Complete 7 days of antibiotics. * Keep spo2 >92%. * Prednisone taper by 10mg every 2 days until finished. * Symbicort 160/4.5 2 puffs BID with rinsing of the mouth. * Spiriva 1 capsule (2 puffs) daily. * TRC/Nebs. * Continous spo2 monitoring. * Will require outpt pfts. * Thyroid mass workup per primary team. * STR at [place]. * DVT prophylaxis at all times.
[2016-02-17] MEDS ORDERED: PREDNISONE10 M2 PO (12:47)
[2016-02-17] MEDS ORDERED: AUGMENTIN 875-1 EACH PO (12:47)
--- NOTE | 2016-02-17 13:07 | Discharge Summary ---
Visit Information Visit Dates Admission Date: 02/13/16 Discharge Date: 02/18/16 Hospital Course Course Attending Physician: EUGENIO VILLANUEVA MD Primary Care Physician: ANALISA MILLIGAN,MARCIANO Valdivia Hospital Course: Chris is a 70-year-old man with a medical history of COPD hypertension benign prostatic hyperplasia nephrolithiasis chronic pain coronary artery disease with stents neurogenic bladder with self-catheterization recurrent UTIs admission to [facility] November 2015 for pyelonephritis with obstructive uropathy status post right ureteral stent that was removed with no presented with progressive dyspnea on exertion. CAT scan ruled out pulmonary embolism. The patient was treated with appropriate antibiotics because he had an elevated white count of 16,000 without bandemia. He was also treated with prednisone. An acute coronary syndrome was ruled out with serial enzymes and EKG. An echocardiogram demonstrated left ventricular severe pulmonary hypertension. Chris continues to feel very short of breath he's on 4 L of oxygen and his saturations 94% however with any exertion he quickly desaturates into the low 70s. Presently his metoprolol is also being held because of the concern of exacerbating or precipitating bronchospasm, and his losartan was also held because of mild AK I with hyperkalemia. His renal function and K are normalized so we are restarting the ARB He will be discharged with antibiotics to complete a seven-day course, as well as a prescription for prednisone with his current instructions for taper of 10mg q 2 days. He will require an appointment with Dr. Timothy Dominique (Endocrinology) for outpatient workup of thyroid mass. Problems Acute respiratory failure secondary to COPD exacerbation Community-acquired pneumonia Acute kidney injury Hyperkalemia Thyroid mass vs nodule Allergies: Coded Allergies: NO KNOWN ALLERGIES (01/02/16) Disposition Summary Disposition Principal Diagnosis: Acute respiratory failure secondary to COPD exacerbation Additional Diagnosis: Community-acquired pneumonia Acute kidney injury Hyperkalemia Thyroid mass vs nodule Discharge Disposition: stir Discharge Instructions General Discharge Information Code Status: Full Code Patient's Diet: Heart healthy diet Patient's Activity: Self-limited Follow-Up Instructions/Appts: Follow-up with primary medical doctor, Edison Moe MD (dispenser operator), Santhosh Rapp MD (cardiology) Follow-up BEP in 2-3 days to follow-up on K and BUN and creatinine Follow-up with Dr. Dominique workup thyroid mass versus nodule Medications at Discharge Discharge Medications: Stop taking the following medications: Metoprolol Tartrate (Metoprolol Tartrate) 25 MG TABLET ORAL TWICE DAILY Qty = 180 Prednisone (Prednisone) 20 MG TABLET ORAL As Directed Qty = 22 Continue taking these medications: Ascorbic Acid (Vitamin C) 500 MG CAPSULE.ER 1 Capsule ORAL TWICE DAILY Comments: Last Taken: 01/01/16 Time: 0900AM Multivitamin and [id number] (Centrum Silver) 1 TAB TAB 1 Tablet ORAL DAILY Losartan Potassium (Losartan Potassium) 25 MG TABLET 1 Tablet ORAL DAILY Qty = 90 Comments: Last Taken:01/03/16 Time:9:30 AM Atorvastatin Calcium (Atorvastatin Calcium) 80 MG TABLET 1 Tablet ORAL Every night Qty = 90 Comments: Last Taken: 12/21/15 Time: 2200PM Mometasone Furoate (Nasonex) 50 MCG SPRAY.PUMP 1 [place] Both sides of nose as needed for ALLERGIES Days = 30 Comments: PER PT MED LIST Aspirin (Ecotrin*) 81 MG TABLET.DR 1 Tablet ORAL DAILY Comments: PER PT MED LIST Lactobacillus Acidophilus (Probiotic) 10 BILLION CELL CAPSULE 1 Capsule ORAL DAILY Comments: PER PT MED LIST Pregabalin (Lyrica) 50 MG CAPSULE 1 Capsule ORAL TWICE DAILY Qty = 60 Comments: PER PT MED LIST Nitroglycerin (Nitroglycerin) 0.4 MG TAB.SUBL 1 Tablet SUBLINGUAL As Directed as needed for CHEST PAIN Qty = 25 Instructions: 1st sign of attack; may repeat every 5 minutes until relief; if pain persists after 3 tablets in 15 minutes, prompt medical att Comments: PER MED CLAIM HX Tamsulosin HCl (Tamsulosin HCl) 0.4 MG CAP.ER.24H 1 Capsule ORAL DAILY Qty = 90 Comments: PER MED CLAIM HX Fluticasone Propionate (Flovent Hfa) 220 MCG AER.W.ADAP PUFF Inhale through mouth as needed for RESPIRATORY Qty = 36 Comments: PER PT MED LIST Start taking the following new medications: Amoxicillin/Potassium Clav (Augmentin 875-125 Tablet) 875 MG-125 MG TABLET 1 Tablet ORAL TWICE DAILY Qty = 6 No Refills Prednisone (Prednisone) 10 MG TABLET 0 ORAL TAPER Qty = 30 No Refills Instructions: TAPER INSTRUCTIONS: TAKE 5 TABS FOR 1 DAY; 4 TABS FOR 2 DAYS; 3 TABS FOR 2 DAYS; 2 TABS FOR 2 DAYS; 1 TAB FOR 2 DAYS; THEN STOP Copies To: LUCIEN MILLIGAN,JOAQUINA Servin; BERENICE MILLIGAN,GRAEME HAUSER MD,MARCIANO Valdivia; LUCIEN MILLIGAN,EDISON Attending MD Review Statement Documenting Attending: LUCIEN MILLIGAN,JOAQUINA Servin
[2016-02-17 16:41] VITALS: BP 146/82
[2016-02-18] VITALS: BP 138/78
--- NOTE | 2016-02-18 08:13 | PN- Housestaff ---
AVIS GILL 02/18/16 0812: Subjective Follow-up For: Acute on chronic COPD exacerbation with hypoxemic respiratory failure Possible pneumonia Pleuritic chest pain- resolved Complaints: pain scale (0-10) Tele-Events Since Last Visit: Normal sinus rhythm Sinus tachycardia Rate 90-100 No acute events noticed on lunchroom monitor. Subjective: Patient was seen and examined this morning. He is alert, awake and oriented to time place and person. No other acute events reported overnight. He denied any chest pain, palpitations, headache, dizziness or lightheadedness. He did report shortness of breath on exertion, requiring high amount of oxygen. He does complain cough associated with yellow colored sputum production. He denied any fever or chills, abdominal pain, change in bladder or bowel habits. He does complain back pain which is chronic and he couldn't sleep well last night because of back pain. Vitals were stable. He is afebrile, pulse 80, respiratory rate 20, blood pressure 140/70, saturating at 93% on 4 L nasal cannula. Review of Systems Constitutional: Denies: see HPI. Objective Last 24 Hrs of Vital Signs/I&O Vital Signs Date Time Temp Pulse Resp B/P Pulse O2 O2 Flow FiO2 Ox Delivery Rate 02/17 0839 98.3 92 20 148/70 91 Nasal 4.0L Cannula 02/17 0000 97.8 83 22 138/78 94 Nasal Cannula 02/17 0000 94 Nasal 4.0L Cannula 02/16 1641 98.1 101 20 146/82 92 Nasal 4.0L Cannula Intake & Output 02/17 1600 02/17 0800 02/17 0000 Intake Total 480 480 Output Total 800 400 Balance -320 80 Intake, Oral 480 480 Number 1 1 Bowel Movements Output, Urine 800 400 Physical Exam General Appearance: Alert, Oriented X3, Cooperative, No Acute Distress Skin: No Rashes, No Breakdown HEENT: Atraumatic, Mucous Membr. moist/pink Neck: Supple, No JVD, No thryomegaly Lymphatic: Cervical nl Cardiovascular: Regular Rate, Normal S1, Normal S2, No Murmurs Lungs: dec air entry Abdomen: Normal Bowel Sounds, Soft, No Tenderness Extremities: No Clubbing, No Cyanosis, No Edema Vascular: Normal Pulses Current Medications: Current Medications Sig/Darvin Start time Last Medication Dose Route Stop Time Status Admin Acetaminophen 650 MG Q6P PRN 02/12 2145 AC 02/16 PO 1420 Al Hydroxide/Mg 30 ML Q4-6 PRN PRN 02/13 0415 AC Hydroxide PO Albuterol Sulfate 2 PUF Q4P PRN 02/16 1030 AC INH Aspirin Buffered 81 MG DAILY 02/13 1000 AC 02/17 PO 0940 Atorvastatin Calcium 80 MG QPM 02/13 2200 AC 02/16 PO 2135 Azithromycin 500 MG DAILY 02/12 2245 AC 02/16 Sodium Chloride 250 ML IV 02/18 2300 0935 Budesonide/ 2 PUF BID 02/13 1022 AC 02/17 Formoterol Fumarate INH 0941 Ceftriaxone Sodium 1,000 MG DAILY 02/13 1014 AC 02/16 IV 02/19 2300 0934 Heparin Sodium 5,000 UNIT Q8 02/14 0951 AC 02/17 (Porcine) SC 0622 Lactobacillus 1 CAP DAILY 02/13 1000 AC 02/17 Acidophilus PO 0940 Melatonin 5 MG AT BEDTIME 02/12 2359 AC 02/14 PO 2150 Nitroglycerin 0.4 MG Q 5 MINUTES X 3 DO.. 02/12 2215 AC 02/13 SL 0026 Omeprazole 40 MG DAILY AC 02/13 0700 AC 02/17 PO 0622 Oxycodone HCl 10 MG Q6P PRN 02/13 1600 AC 02/17 PO 0941 Polyethylene Glycol 17 GM DAILY PRN 02/13 0815 AC 02/15 PO 0610 Prednisone 10 MG DAILY 02/25 1000 AC PO 02/26 2300 Prednisone 20 MG DAILY 02/23 1000 AC PO 02/24 2300 Prednisone 30 MG DAILY 02/21 1000 AC PO 02/22 2300 Prednisone 40 MG DAILY 02/19 1000 AC PO 02/20 2300 Prednisone 50 MG DAILY 02/17 1000 AC 02/17 PO 02/18 2300 0940 Prednisone 60 MG DAILY 02/15 1000 DC 02/16 PO 02/16 2300 0931 Pregabalin 50 MG BID 02/12 2207 AC 02/17 PO 0940 Tiotropium [place] 1 PUF DAILY 02/15 1000 AC 02/17 INH 0940 Last 24 Hrs of Lab/Pantera Results Last 24 Hrs of Labs/Mics: Laboratory Tests 02/18/16 0610: Anion Gap 13, Estimated GFR > 60, BUN/Creatinine Ratio 27.3 H Assessment/Plan Assessment: Patient is a 70-year-old gentleman with past medical history significant for COPD(smoked cigars for almost 20 years)/questionable interstitial lung disease, hypertension, hyperlipidemia, NC status post cardiac stent placed in 2014, chronic back pain, ankle fracture, septic shock, dysfunctional (neurogenic) bladder status post self-catheterization, urinary retention, recurrent UTI, renal stones status post multiple lithotripsy was sent in to the ED from Dr. Moe office for the evaluation of shortness of breath. In the office patient was found to be in respiratory distress, desaturated and was sent to the ER for further evaluation. ofnote, the patient was recently admitted in [facility] due to acute pyelonephritis and sepsis was discharged home on 12/22/2015. Vitals on admission temperature 96.9, pulse 110, respiratory rate 21, blood pressure 119/74, first on 7 L , down to 4 L of oxygen,saturating more than 92%. labs- Leukocytosis 14.2 without any bands, H&H low at 10.6/32.5 with MCV of 80.5. ABG done in the ED showed a pH of 7.47 with PCO2 of 30, D dimer elevated at 713 elevated proBNP 2420. EKG: Sinus tachycardia heart rate in 100s, with multiple PVCs, left fascicular block. Chest x-ray Pulmonary hypoinflation. Minimal dependent bibasilar atelectasis. Otherwise, no acute pulmonary process. Problem list 1. Acute COPD exacerbation/pneumonia 2. Acute hypoxemic respiratory failure 3. Hypertension 4. Hyperlipidemia 5. Coronary artery disease 6. Chronic back pain 7. Neurogenic bladder 8. Urinary retention 9. Recurrent renal stones and recurrent UTIs Acute COPD exacerbation/pneumonia patient smoked cigars for almost 20 years, has been diagnosed with emphysema ( COPD). 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 Has never went for pulmonary function tests before. Presented with worsening shortness of breath for couple of weeks. Associated with cough and white colored sputum production. He was sent to Dr. Moe's office by primary care doctor where he was found to be desaturating. He was requiring high amounts of oxygen in the emergency room. Of note patient is not on home oxygen. Admitted for acute COPD exacerbation/pneumonia * Admitted to telemetry floor for continuous monitoring * Monitor vitals every shift * Maintain oxygen saturations above 90% * Provide supplemental oxygen * Patient is saturating at 94% on 4 L oxygen * WBC count elevated on admission , came down to 16 from 20 With no bands * CAT scan chest ruled out pulmonary embolism but revealed small bilateral apical infiltrates suggestive of pneumonia * Completed 4 days of antibiotics with IV ceftriaxone and azithromycin. Patient will be discharging today on oral Augmentin for 3 more days twice a day. * on oral prednisone 50mg today, Patient will be discharged to [facility] on a taper. * Urine streptococcal antigen and urine Legionella antigen-negative * Follow-up sputum cultures * Follow-up blood culture * Total respiratory care * Started Symbicort and Spiriva * Continue albuterol * Seismic Prospecting Observer Helper on board Ruled out ACS Patient complains of on and off chest pain. Ruled out pulmonary embolism Serial EKGs and troponins negative Ruled out acute coronary syndrome Mapping Pilot on board echocardiogram- Normal left ventricular systolic function without segmental abnormalities. [place] dilated right ventricle with normal function. Mild to moderate tricuspid regurgitation with calculated severe Pulmonary hypertension. Acute hypoxic respiratory failure Patient was diagnosed with COPD-emphysema. Not on home oxygen. However patient started having shortness of breath for 3-4 weeks. Desaturated to 80s on 4 L oxygen. Requiring high amount of oxygen to maintain above 90%. * Provide supplemental oxygen. History of coronary artery disease ([place] 2015 status post cardiac cath and stent placement) * Continue home medications including aspirin, atorvastatin Hypertension losartan on hold as creatinine is 1.1. metoprolol was stopped because of bronchospasm Patient was advised to follow-up with vascular surgery physician. Hyperlipidemia continue statins History of neurogenic bladder on straight cath protocol * Continue straight cath protocol in the hospital History of chronic back pain with neuropathy * Continue home dose of Lyrica * continue oxycodone Mild to moderate pain controlled with Tylenol and oxycodone. DVT prophylaxis subcutaneous heparin Patient is full code. regular diet Problem List: 1. Chronic back pain 2. Hypoxia 3. COPD (chronic obstructive pulmonary disease) Pain Ratin Pain Location: Chronic back pain Pain Goal: Remain pain free Pain Plan: Oxycodone and Tylenol Lyrica Tomorrow's Labs & Rationales: none JOAQUINA MCGRAW MD 02/18/16 0930: Attending MD Review Statement Attending Statement Attending MD Statement: examined this patient, discuss w/resident/PA/REAL ESTATE SERVICES ADMINISTRATOR, agreed w/resident/PA/REAL ESTATE SERVICES ADMINISTRATOR, reviewed EMR data (avail), discussed with nursing Attending Assessment/Plan: Patient did not sleep well. He says that his back hurts on this bed. He still worried about his O2 sat and the fact that he is on 4 L and is eager to go to [place]. He is a 70-year-old with COPD here with acute hypoxemic respiratory failure requiring 4 L of oxygen with CTA showing evidence of bilateral pneumonia. He will complete his antibiotic course for a total of 7 days with a prednisone taper 10 mg every 2 days per pulmonary with Symbicort and tiotropium on discharge. We have clearly put that he needs outpatient follow-up for this thyroid mass versus nodule and an appointment with Dr. Dominique when he leaves. His K and BUN and creatinine have normalized and we are starting the losartan with the plan to follow-up BMP as an outpatient. As per Santhosh Rapp MD's note from Friday the metoprolol is on hold for severe bronchospasm and will be reevaluated as an outpatient.
[2016-02-18 08:39] VITALS: BP 148/70
[2016-02-18] MEDS ORDERED: AUGMENTIN 875-1 EACH PO (09:15)
[2016-02-18] MEDS ORDERED: PREDNISONE10 M2 PO (09:17)
[2016-02-18] MEDS ORDERED: SYMBICORT 16010.2 GM INH (09:23)
[2016-02-18] MEDS ORDERED: SPIRIVA18 MCG INH (09:23)
--- NOTE | 2016-02-18 10:22 | PN- Pulmonary ---
Subjective HPI/Critical Care Issues: No overnight events reported. The patient is slowly feeling improved. Objective Current Medications: Current Medications Sig/Darvin Start time Last Medication Dose Route Stop Time Status Admin Acetaminophen 650 MG Q6P PRN 02/12 2145 AC 02/16 PO 1420 Al Hydroxide/Mg 30 ML Q4-6 PRN PRN 02/13 0415 AC Hydroxide PO Albuterol Sulfate 2 PUF Q4P PRN 02/16 1030 AC INH Aspirin Buffered 81 MG DAILY 02/13 1000 AC 02/17 PO 0940 Atorvastatin Calcium 80 MG QPM 02/13 2200 AC 02/16 PO 2135 Azithromycin 500 MG DAILY 02/12 2245 AC 02/16 Sodium Chloride 250 ML IV 02/18 2300 0935 Budesonide/ 2 PUF BID 02/13 1022 AC 02/17 Formoterol Fumarate INH 0941 Ceftriaxone Sodium 1,000 MG DAILY 02/13 1014 AC 02/16 IV 02/19 2300 0934 Heparin Sodium 5,000 UNIT Q8 02/14 0951 AC 02/17 (Porcine) SC 0622 Lactobacillus 1 CAP DAILY 02/13 1000 AC 02/17 Acidophilus PO 0940 Melatonin 5 MG AT BEDTIME 02/12 2359 AC 02/14 PO 2150 Nitroglycerin 0.4 MG Q 5 MINUTES X 3 DO.. 02/12 2215 AC 02/13 SL 0026 Omeprazole 40 MG DAILY AC 02/13 0700 AC 02/17 PO 0622 Oxycodone HCl 10 MG Q6P PRN 02/13 1600 AC 02/17 PO 0941 Polyethylene Glycol 17 GM DAILY PRN 02/13 0815 AC 02/15 PO 0610 Prednisone 10 MG DAILY 02/25 1000 AC PO 02/26 2300 Prednisone 20 MG DAILY 02/23 1000 AC PO 02/24 2300 Prednisone 30 MG DAILY 02/21 1000 AC PO 02/22 2300 Prednisone 40 MG DAILY 02/19 1000 AC PO 02/20 2300 Prednisone 50 MG DAILY 02/17 1000 AC 02/17 PO 02/18 2300 0940 Prednisone 60 MG DAILY 02/15 1000 DC 02/16 PO 02/16 2300 0931 Pregabalin 50 MG BID 02/12 2207 AC 02/17 PO 0940 Tiotropium [place] 1 PUF DAILY 02/15 1000 AC 02/17 INH 0940 Vital Signs & I&O Last 24 Hrs of Vitals and I&O: Vital Signs Date Time Temp Pulse Resp B/P Pulse O2 O2 Flow FiO2 Ox Delivery Rate 02/17 0839 98.3 92 20 148/70 91 Nasal 4.0L Cannula 02/17 0000 97.8 83 22 138/78 94 Nasal Cannula 02/17 0000 94 Nasal 4.0L Cannula 02/16 1641 98.1 101 20 146/82 92 Nasal 4.0L Cannula Intake & Output 02/17 1600 02/17 0800 02/17 0000 Intake Total 480 480 Output Total 800 400 Balance -320 80 Intake, Oral 480 480 Number 1 1 Bowel Movements Output, Urine 800 400 Exam General Appearance: well developed/nourished, no apparent distress, alert, comfortable Head: atraumatic, normal appearance Neck: supple Respiratory: no respiratory distress, faint wheezing Cardiovascular: regular rate/rhythm, systolic murmur Abdomen: normal bowel sounds, soft, non-tender Extremities: no edema, no cyanosis Skin: intact, normal color, warm/dry Results Last 24 Hrs of Lab Results: Laboratory Tests 02/18/16 0610: Anion Gap 13, Estimated GFR > 60, BUN/Creatinine Ratio 27.3 H Impression/Plan Impression/Plan Impression/Plan: 1. Hypoxemic respiratory failure, acute on chronic, secondary to COPD exacerbation. 2. Infiltrates bilateral apices along with mild leukocytosis not previously seen, consistent with bilateral community acquire pneumonia. 3. Pulmonary HTN. 4. Thyroid mass - to be addressed per primary team. Recommendations: * Complete 7 days of antibiotics. * Keep spo2 >92%. * Prednisone taper by 10mg every 2 days until finished. * Symbicort 160/4.5 2 puffs BID with rinsing of the mouth. * Spiriva 1 capsule (2 puffs) daily. * TRC/Nebs. * Continous spo2 monitoring. * Will require outpt pfts. * Thyroid mass workup per primary team. * STR at [place]. * DVT prophylaxis at all times.
[2016-02-18 10:52] VITALS: BP 148/70
--- NOTE | 2016-02-18 11:03 | PN- Cardiology ---
Subjective Subjective: The patient reports that his shortness of breath is improving. He continues to have a cough, however that is improving. He complains of back pain. No significant chest pain. No palpitations. No diaphoresis. Objective Vital Signs and I&Os Vital Signs Date Time Temp Pulse Resp B/P Pulse O2 O2 Flow FiO2 Ox Delivery Rate 02/17 1052 98.3 92 20 148/70 02/17 0839 98.3 92 20 148/70 91 Nasal 4.0L Cannula 02/17 0000 97.8 83 22 138/78 94 Nasal Cannula 02/17 0000 94 Nasal 4.0L Cannula 02/16 1641 98.1 101 20 146/82 92 Nasal 4.0L Cannula Intake & Output 02/17 1600 02/17 0800 02/17 0000 02/16 1600 02/16 0800 02/16 0000 Intake Total 960 509 1873 680 480 Output Total 800 400 900 600 500 Balance -320 80 120 80 -20 Intake, IV 200 Intake, Oral 738 305 4998 480 480 Number 1 1 1 1 Bowel Movements Output, Urine 800 400 900 600 500 Patient 214 lb Weight Physical Exam: General: no apparent distress. Alert. On [place] O2. Eyes: No obvious scleral icterus. HEENT: No jugular venous distention or abnormal jugular venous pulsations. Cardiovascular: Normal intensity S1/S2. Regular. PMI not displaced. Respiratory: Mildly decreased air entry bilaterally. Abdomen: soft, no rebound tenderness Musculoskeletal: No cyanosis noted, no edema Skin: Warm Neurologic: No gross focal deficits noted. Current Medications: Current Medications Sig/Darvin Start time Last Medication Dose Route Stop Time Status Admin Acetaminophen 650 MG Q6P PRN 02/12 2145 AC 02/16 PO 1420 Al Hydroxide/Mg 30 ML Q4-6 PRN PRN 02/13 0415 AC Hydroxide PO Albuterol Sulfate 2 PUF Q4P PRN 02/16 1030 AC INH Aspirin Buffered 81 MG DAILY 02/13 1000 AC 02/17 PO 0940 Atorvastatin Calcium 80 MG QPM 02/13 2200 AC 02/16 PO 2135 Azithromycin 500 MG DAILY 02/12 2245 AC 02/16 Sodium Chloride 250 ML IV 02/18 2300 0935 Budesonide/ 2 PUF BID 02/13 1022 AC 02/17 Formoterol Fumarate INH 0941 Ceftriaxone Sodium 1,000 MG DAILY 02/13 1014 AC 02/16 IV 02/19 2300 0934 Heparin Sodium 5,000 UNIT Q8 02/14 0951 AC 02/17 (Porcine) SC 0622 Lactobacillus 1 CAP DAILY 02/13 1000 AC 02/17 Acidophilus PO 0940 Melatonin 5 MG AT BEDTIME 02/12 2359 AC 02/14 PO 2150 Nitroglycerin 0.4 MG Q 5 MINUTES X 3 DO.. 02/12 2215 AC 02/13 SL 0026 Omeprazole 40 MG DAILY AC 02/13 0700 AC 02/17 PO 0622 Oxycodone HCl 10 MG Q6P PRN 02/13 1600 AC 02/17 PO 0941 Polyethylene Glycol 17 GM DAILY PRN 02/13 0815 AC 02/15 PO 0610 Prednisone 10 MG DAILY 02/25 1000 AC PO 02/26 2300 Prednisone 20 MG DAILY 02/23 1000 AC PO 02/24 2300 Prednisone 30 MG DAILY 02/21 1000 AC PO 02/22 2300 Prednisone 40 MG DAILY 02/19 1000 AC PO 02/20 2300 Prednisone 50 MG DAILY 02/17 1000 AC 02/17 PO 02/18 2300 0940 Prednisone 60 MG DAILY 02/15 1000 DC 02/16 PO 02/16 2300 0931 Pregabalin 50 MG BID 02/12 2207 AC 02/17 PO 0940 Tiotropium [place] 1 PUF DAILY 02/15 1000 AC 02/17 INH 0940 Results Last 48 Hrs of Labs/Mics: Laboratory Tests 02/18/16 0610: Anion Gap 13, Estimated GFR > 60, BUN/Creatinine Ratio 27.3 H 02/17/16 0445: Anion Gap 7, Estimated GFR > 60, BUN/Creatinine Ratio 30.0 H, CBC w Diff NO MAN DIFF REQ, RBC 3.65 L, MCV 80.2, MCH 26.1 L, RDW 18.0 H, MPV 8.0, Gran % 83.8 H, Lymphocytes % 7.1 L, Monocytes % 8.8, Eosinophils % 0.1, Basophils % 0.2, Absolute Granulocytes 10.7 H, Absolute Lymphocytes 0.9 L, Absolute Monocytes 1.1 H, Absolute Eosinophils 0, Absolute Basophils 0, PUBS MCHC 32.5 L Assessment/Plan Assessment/Plan Assessment: 1. CAD, status post DAMARI in 2014 2. Hypertension 3. COPD exacerbation 4. Pneumonia 5. Pulmonary hypertension Plan: * Restart losartan 25 mg daily which the patient was taking as an outpatient for hypertension * Follow up with Dr. Hannon in 2 weeks. * Continue other cardiac medications. Continue telemetry? No
== END 2016-02-18 11:23 | DRG 190 ==
LOC: ERH 16:27 → 1NO 18:45 → ERHI 18:45 → 1NO 21:11
PROVIDERS: Emergency Medicine; Student in an Organized Health Care Education/Training Program; ADMIT Student in an Organized Health Care Education/Training Program
DX: J44.0 Chronic obstructive pulmonary disease with (acute) lower respiratory infection (principal); J96.01 Acute respiratory failure with hypoxia; J18.9 Pneumonia, unspecified organism; N17.9 Acute kidney failure, unspecified; J44.1 Chronic obstructive pulmonary disease with (acute) exacerbation; E66.9 Obesity, unspecified; Z68.32 Body mass index [BMI] 32.0-32.9, adult; I10 Essential (primary) hypertension; E78.5 Hyperlipidemia, unspecified; N31.9 Neuromuscular dysfunction of bladder, unspecified; I25.10 Atherosclerotic heart disease of native coronary artery without angina pectoris; I25.2 Old myocardial infarction; G89.29 Other chronic pain; M54.9 Dorsalgia, unspecified; D64.9 Anemia, unspecified; G62.9 Polyneuropathy, unspecified; I27.2 Other secondary pulmonary hypertension; E87.5 Hyperkalemia; E07.89 Other specified disorders of thyroid; N40.0 Benign prostatic hyperplasia without lower urinary tract symptoms; Z87.891 Personal history of nicotine dependence
CPT/HCPCS: 1NSP; 84133; 84300; 36415; 81001; 82436; 82570; 87040; 87070; 87449; 87450; 93005; 93010; 93306; 96374; 97001-GP; 97116-GO; J0456; J0696; J1644; J1650; J2920; J2930; J3490; J7040; J7512

== ENCOUNTER 2016-02-21 03:50 | Emergency (ER) | payer OTHER, MEDICARE ==
[~2016-02-21 03:50] MED LIST changes: +ASPIRIN EC81 M1 PO; +FLOVENT HFA12 GM INH; +LYRICA50 M1 PO; +NITROGLYCERIN0.4 M1 SL; +PREDNISONE10 M2 PO; +PREDNISONE20 M1 PO; +PROBIOTIC1 EACH PO; +SPIRIVA18 MCG INH; +SYMBICORT 16010.2 GM INH; +TAMSULOSIN HCL0.4 M1 PO
--- NOTE | 2016-02-21 04:02 | ED DYSPNEA/ASTHMA COMPLAINT ---
History of Present Illness General Chief Complaint: Dyspnea (COPD, CHF, Other) Stated Complaint: SOB Source: patient, family, old records, EMS, [facility]10 Exam Limitations: no limitations Vital Signs & Intake/Output Vital Signs & Intake/Output Vital Signs Date Time Temp Pulse Resp B/P Pulse O2 O2 Flow FiO2 Ox Delivery Rate 02/20 0404 94 Nasal 5.0L Cannula 02/20 0352 97.8 94 20 152/79 96 Nasal 6.0L Cannula Allergies Coded Allergies: NO KNOWN ALLERGIES (01/02/16) Reconcile Medications Amoxicillin/Potassium Clav (Augmentin 875-125 Tablet) 875 MG-125 MG TABLET 1 TAB PO BID pneumonia Ascorbic Acid (Vitamin C) 500 MG CAPSULE.ER 1 CAP PO BID SUPPLEMENT (Reported ) Aspirin (Ecotrin*) 81 MG TABLET.DR 1 TAB PO DAILY HEART/BLOOD (Reported) Atorvastatin Calcium 80 MG TABLET 1 TAB PO QPM CHOLESTEROL (Reported) Budesonide/Formoterol Fumarate (Symbicort 160-4.5 Mcg Inhaler) 160 MCG-4.5 MCG/ ACTUATION HFA.AER.AD 2 PUF INH BID COPD Lactobacillus Acidophilus (Probiotic) 10 BILLION CELL CAPSULE 1 CAP PO DAILY PROBIOTIC (Reported) Losartan Potassium 25 MG TABLET 1 TAB PO DAILY HEART (Reported) Mometasone Furoate (Nasonex) 50 MCG SPRAY.PUMP 1 SPRAY NASB PRN ALLERGIES ( Reported) Multivitamin and [id number] (Centrum Silver) 1 TAB TAB 1 TAB PO DAILY SUPPLEMENT (Reported) Nitroglycerin 0.4 MG TAB.SUBL 1 TAB SL AD PRN CHEST PAIN (Reported) 1st sign of attack; may repeat every 5 minutes until relief; if pain persists after 3 tablets in 15 minutes, prompt medical att Prednisone 10 MG TABLET 0 PO TAPER COPD TAPER INSTRUCTIONS: TAKE 5 TABS FOR 1 DAY; 4 TABS FOR 2 DAYS; 3 TABS FOR 2 DAYS; 2 TABS FOR 2 DAYS; 1 TAB FOR 2 DAYS; THEN STOP Pregabalin (Lyrica) 50 MG CAPSULE 1 CAP PO BID UNKNOWN (Reported) Tamsulosin HCl 0.4 MG CAP.ER.24H 1 CAP PO DAILY (Reported) Tiotropium [place] (Spiriva) 18 MCG CAP.W.DEV 1 PUF INH DAILY COPD Triage Note: 70YO MALE TO RM 12 VIA AMB FROM [facility] W/CO LOW O2 SAT TONITE. PT STATES HE RECENTLY LEFT [place] AND HAS BEEN AT [facility] X 1 D, HAD HIS O2 INCREASED TO 5 1/2L YESTERDAY. UPON ARRIVAL ON 6L O2 SAT = 98 Triage Nurses Notes Reviewed? yes HPI: Patient sent in for evaluation of low oxygen saturation. Patient has COPD and is on continuous O2. Patient is on for half liters per minute. This morning he woke up to take his Percocet and one they did his vitals and noticed that his oxygen level was low. Patient states that his oxygen level will Janzer and jaw down into the low 70s however with deep breathing he is able to get back up to the 90s. Patient states when he attempted to do that there was just water in the tubing. They changed the tubing and then the machine and the patient felt like he was not getting any air. EMS was contacted and they put him on their O2 tank and the patient immediately felt better. Patient has no chronic complaints. Patient denies any chest pain or palpitations. There is no coughing. There are no fevers or chills. Past History Travel History Traveled to [place] past 21 day No Medical History Any Pertinent Medical History? see below for history Neurological: NONE EENT: hearing loss Cardiovascular: hyperlipidemia, myocardial infarction, hypertension Respiratory: asthma Gastrointestinal: NONE Hepatic: NONE Renal: dysfunctional bladder, self catheterizes. URINARY RETENTION REQUIRING SELF-CATHETERIZATION Musculoskeletal: chronic back pain, osteoarthritis, LLE FX, Psychiatric: NONE Endocrine: NONE Blood Disorders: septic shock x 2 Cancer(s): NONE TEACHING SPECIALISTS/Reproductive: NONE Other Medical Hx: UTI, sepsis History of MRSA: No History of VRE: No History of CDIFF: No Pneumonia Vaccine: 12/01/13 Influenza Vaccine: 12/02/15 Surgical History Surgical History: CARDIAC STENT BACK SURGER 2006 Psychosocial History Who do you live with Family Services at Home None What is your primary language Sinhala Tobacco Use: Quit >30 days ago ETOH Use: denies use Illicit Drug Use: denies illicit drug use Family History Family History, If Any: MOTHER FATHER Relation not specified for: FH: CHF (congestive heart failure) FH: diabetes mellitus FH: malignant neoplasm Hx Contributory? No Review of Systems Review of Systems Constitutional: Reports: no symptoms. EENTM: Reports: no symptoms. Respiratory: Reports: see HPI. Cardiovascular: Reports: no symptoms. GI: Reports: no symptoms. Genitourinary: Reports: no symptoms. Musculoskeletal: Reports: no symptoms. Skin: Reports: no symptoms. Neurological/Psychological: Reports: no symptoms. Hematologic/Endocrine: Reports: no symptoms. Immunologic/Allergic: Reports: no symptoms. All Other Systems: Reviewed and Negative Physical Exam Physical Exam General Appearance: well developed/nourished, alert, awake, mild distress Head: atraumatic, normal appearance Eyes: Bilateral: PERRL, EOMI. Ears, Nose, Throat: normal pharynx, normal ENT inspection Neck: normal inspection, supple, full range of motion, NO jvd Respiratory: normal breath sounds, chest non-tender, no respiratory distress, lungs clear Cardiovascular: regular rate/rhythm, normal peripheral pulses Gastrointestinal: normal bowel sounds, soft, non-tender, no organomegaly Extremities: normal inspection, normal capillary refill, normal range of motion, no edema Neurologic/Psych: no motor/sensory deficits, awake, alert, oriented x 3, normal mood/affect Lymphatic: no anterior cervical fouzia Core Measures ACS in differential dx? No Severe Sepsis Present: No Septic Shock Present: No Progress Differential Diagnosis: bronchitis, COPD Plan of Care: Patient just saturation is being maintained between 90 and 93% on 4 L nasal cannula. We'll continue to observe patient. If patient becomes symptomatic and will obtain chest x-ray and blood work however right now we'll just monitor him. Initial ED EKG: none Comments: Patient maintaining his oxygenation between 90 and 93% on 4 1/2 l. Patient has no complaints. Departure Departure Disposition: ACUTE REHAB FACILITY Condition: Stable Clinical Impression Primary Impression: Dyspnea Referrals: SOHEILA BAUER MD (PCP/Family) Departure Forms: Customer Survey General Discharge Information Critical Care Note Critical Care Note Critical Care Time: non-applicable
[2016-02-21 06:48] VITALS: BP 141/94
== END 2016-02-21 07:04 ==
LOC: ERH 03:50
DX: R06.00 Dyspnea, unspecified (principal)